=== PATIENT | male | born 1965 | race Caucasian/White ===

== ENCOUNTER 2024-01-09 14:24 | Emergency (ER) | payer BC, MEDICARE, SELFPAY ==
[2024-01-09 14:36] VITALS: BP 140/76
[2024-01-09 14:54] LABS: % Basophils 1.1 % (0-2); % Eosinophils 5.6 % (0-6); % Immature Granulocytes 0.2 % (0-0.5); % Lymphocytes 24.1 % (20.5-51.1); % Monocytes 9.4 % (1.7-9.3); % Neutrophils 59.6 % (42.2-75.2); Absolute Basophils 0.1 10^3/uL (0-0.2); Absolute Eosinophils 0.5 10^3/uL (0-0.7); Absolute Lymphocytes 2.1 10^3/uL (1.2-3.4); Absolute Monocytes 0.8 10^3/uL (0.1-0.6); Absolute Neutrophils 5.3 10^3/uL (1.4-6.5); Hematocrit 46.7 % (39.0-52.0); Hemoglobin 15.8 g/dL (13.0-18.0); Mean Corp Hgb Conc. 33.8 g/dL (33.0-37.0); Mean Corpuscular Hgb 29.7 pg (27.0-31.0); Mean Corpuscular Volume 87.8 fL (80.0-94.0); Mean Platelet Volume 11.8 fL (7.4-10.4); Nucleated Red Blood Cells % 0 % (-); Platelet Count 251 10^3/uL (130-400); Red Blood Cell Count 5.32 10^6/uL (4.70-6.10); Red Cell Dist. Width 12.8 % (11.5-14.5); White Blood Cell Count 8.9 10^3/uL (4.8-10.8)
[2024-01-09 15:13] LABS: ALT (SGPT) 26 U/L (0-50); AST (SGOT) 22 U/L (17-59); Albumin 4.4 g/dl (3.5-5.0); Alkaline Phosphatase 96 U/L (38-126); Blood Urea Nitrogen 24 mg/dl (9-20); Calcium 9.3 mg/dl (8.4-10.2); Carbon Dioxide 24 mmol/L (22-30); Chloride 106 mmol/L (98-107); Glucose 94 mg/dl (70-99); Potassium 4.2 mmol/L (3.5-5.1); Sodium 134 mmol/L (135-145); Total Bilirubin 0.5 mg/dl (0.2-1.3); Total Protein 6.4 g/dl (6.3-8.2); eGFR > 60.00
[2024-01-09 15:18] LABS: Troponin I < 0.012 ng/ml
--- NOTE | 2024-01-09 17:07 | ED.GENMED ---
History of Present Illness
<Samantha Davis, CONE MACHINE OPERATOR - Last Filed: 01/10/24 13:22>
General
Chief Complaint: Chest Pain
Source: patient
Exam Limitations: none
Time Seen by Provider: 01/09/24 17:07
Nursing documentation reviewed up to this point in time: agreed with except (no chest pain, rather epigastric pain)
Travel History
Have you had any contact with someone who has COVID-19?: No
Do you have any symptoms of coronavirus? Fever > 100 degrees, chills, cough, shortness of breath, sore throat, loss of taste or smell, muscle aches, or headache?: No
History of Present Illness
History of Present Illness:
58-year-old male with history of MS, COPD, smoker, cardiomyopathy, CAD, HTN, HLD, [place], GERD, colon CA w. sigmoid colon area resection 10/22/23 presents stating for past 4 days has had waxing and waning epigastric pains that 'shoot through to my
back.'Gradual onset, 'throbbing, burning' 4/10 then goes up to 9/10 intermittently for 15 seconds or so. Pain kept him up all night last night. Nausea at times no vomiting. Reports had some perfume Denies fever. Denies change in color of stool. Has
been having normal BMs, urinating well.
Past History
<Samantha Davis, CONE MACHINE OPERATOR - Last Filed: 01/10/24 13:22>
Past History
ED Past Medical History: Asthma (COPD), CAD, GERD, HTN, [place], Other (Cardiomyopathy with preserved LVF, osteopenia, diverticulosis, Bronchiolitis, MS, Pneumonia) and Other (questionable distant history of Lyme disease)
ED Past Surgical History: Appendectomy and Bowel resection
Social History
Tobacco: Smoker
Alcohol: Occasional
Personal:
Living: with family
Employment: Employed
Family History
Family History: Early CAD
Review of Systems
<Samantha V. Day, CONE MACHINE OPERATOR - Last Filed: 01/10/24 13:22>
Review of Systems
Allergies reviewed?: Yes
All Other Systems: ROS reviewed and negative except as documented in HPI and ROS
Constitutional: Denies fever or chills
Respiratory: Denies trouble breathing
Cardiac: Denies chest pain
ABD/GI: Reports abdominal pain (epigastric area); Denies nausea, vomiting, diarrhea, constipated, bloody stools, black stools or anorexia
: Denies dysuria, frequency, difficulty voiding or urgency
Musculoskeletal: Reports no symptoms
Skin: Reports no symptoms
Neurological: Reports no symptoms
Phy Exam
<Samantha Davis, CONE MACHINE OPERATOR - Last Filed: 01/10/24 13:22>
Physical Exam
Physical Exam:
GENERAL: No acute distress. A&Ox3.
CONSTITUTIONAL: Afebrile.
EYES: clear, conjunctivae normal
ENMT: moist mucus membranes, Pharynx nl
RESPIRATORY: Regular respirations, nonlabored, lungs clear.
CARDIOVASCULAR: Regular rate and rhythm, no murmurs, no rubs.
GI: Soft, normal BS, no tenderness to palpation but pt had three 15 second episodes of significant epigastric burning, spasm type pain with wincing and holding the area, legs pulled up.
MUSCULOSKELETAL: Moves with ease. Well perfused. No edema
SKIN: Warm, dry, pink
PSYCH: Normal mood and affect. Well kept, interactive and appropriate
NEUROLOGIC: Awake, alert and oriented. No focal neurological deficits
Scores
<Samantha Davis, CONE MACHINE OPERATOR - Last Filed: 01/10/24 13:22>
Heart Score for Chest Pain Patients
STEMI patient?: Not applicable
Course
<Samantha Davis, CONE MACHINE OPERATOR - Last Filed: 01/10/24 13:22>
Orders/Labs/Results
Orders:
Orders
01/09/24 14:29
EKG [Electrocardiogram (*1)] Urgent
Reason for Study: Chest Pain
01/09/24 14:30
EKG- Treatment ONCE
01/09/24 14:45
CMP [Comprehensive Metabolic Panel] Urgent
Complete Blood Count/With Diff Urgent
Lipase Urgent
Comment: ADD ON
Troponin I Urgent
01/09/24 17:20
CT Abd/pelvis W Iv Cont Urgent
Comment:
Reason For Exam: upper abdominal pain shooting through to the back
01/09/24 17:22
0.9% Sodium Chloride 1000 ml [Nss] 1,000 ml IV BOLUS
01/09/24 18:27
Dicyclomine [Bentyl] 20 mg PO NOW STA
01/09/24 18:53
Add On- LAB Urgent
Tests Added?: Lipase
01/09/24 19:39
Morphine Sulfate 4 mg IV NOW STA
01/09/24 20:24
Morphine Sulfate 4 mg IV NOW STA
Pantoprazole [Protonix IV] 80 mg IV NOW STA
Sucralfate Suspension [Carafate Suspension] 1 gm PO NOW STA
Abnormal Lab Results
01/09/24
14:45
MPV 11.8 H fL
(7.4-10.4)
Absolute Monos (auto) 0.8 H 10^3/uL
(0.1-0.6)
Monocytes % 9.4 H %
(1.7-9.3)
Sodium 134 L mmol/L
(135-145)
BUN 24 H mg/dl
(9-20)
Creatinine 0.6 L mg/dL
(0.7-1.3)
01/09/24 14:45
01/09/24 14:45
Vital Signs
Initial and Last Documented VS:
Initial Vital Signs
Temp Pulse Resp BP Pulse Ox
97.7 F 64 18 140/76 97
01/09/24 14:36 01/09/24 14:36 01/09/24 14:36 01/09/24 14:36 01/09/24 14:36
Last Documented Vital Signs
Temp Pulse Resp BP Pulse Ox
97.9 F 64 11 125/71 98
01/09/24 21:36 01/09/24 20:45 01/09/24 20:45 01/09/24 20:00 01/09/24 20:45
<Morgan Dewey, DO - Last Filed: 01/09/24 20:28>
Orders/Labs/Results
Orders:
Orders
01/09/24 14:29
EKG [Electrocardiogram (*1)] Urgent
Reason for Study: Chest Pain
01/09/24 14:30
EKG- Treatment ONCE
01/09/24 14:45
CMP [Comprehensive Metabolic Panel] Urgent
Complete Blood Count/With Diff Urgent
Lipase Urgent
Comment: ADD ON
Troponin I Urgent
01/09/24 17:20
CT Abd/pelvis W Iv Cont Urgent
Comment:
Reason For Exam: upper abdominal pain shooting through to the back
01/09/24 17:22
0.9% Sodium Chloride 1000 ml [Nss] 1,000 ml IV BOLUS
01/09/24 18:27
Dicyclomine [Bentyl] 20 mg PO NOW STA
01/09/24 18:53
Add On- LAB Urgent
Tests Added?: Lipase
01/09/24 19:39
Morphine Sulfate 4 mg IV NOW STA
01/09/24 20:24
Morphine Sulfate 4 mg IV NOW STA
Pantoprazole [Protonix IV] 80 mg IV NOW STA
Sucralfate Suspension [Carafate Suspension] 1 gm PO NOW STA
Abnormal Lab Results
01/09/24
14:45
MPV 11.8 H fL
(7.4-10.4)
Absolute Monos (auto) 0.8 H 10^3/uL
(0.1-0.6)
Monocytes % 9.4 H %
(1.7-9.3)
Sodium 134 L mmol/L
(135-145)
BUN 24 H mg/dl
(9-20)
Creatinine 0.6 L mg/dL
(0.7-1.3)
01/09/24 14:45
01/09/24 14:45
Vital Signs
Initial and Last Documented VS:
Initial Vital Signs
Temp Pulse Resp BP Pulse Ox
97.7 F 64 18 140/76 97
01/09/24 14:36 01/09/24 14:36 01/09/24 14:36 01/09/24 14:36 01/09/24 14:36
Last Documented Vital Signs
Temp Pulse Resp BP Pulse Ox
97.9 F 64 11 125/71 98
01/09/24 21:36 01/09/24 20:45 01/09/24 20:45 01/09/24 20:00 01/09/24 20:45
<Samantha Davis, CONE MACHINE OPERATOR - Last Filed: 01/10/24 13:22>
MDM/Problems Addressed
Differential Diagnosis Includes:
PUD, biliary colic, AAA, gastritis
MDM/Problems Addressed:
58-year-old male with history of MS, COPD, smoker, cardiomyopathy, CAD, HTN, HLD, [place], GERD, colon CA w. sigmoid colon area resection 10/22/23 presents stating for past 4 days has had waxing and waning epigastric pains that 'shoot through to my
back.'Gradual onset, 'throbbing, burning' 4/10 then goes up to 9/10 intermittently for 15 seconds or so. Pain kept him up all night last night. Nausea at times no vomiting. Reports had some perfume Denies fever. Denies change in color of stool. Has
been having normal BMs, urinating well.
Afebrile, NAD, denies chest pain, frequent epigastric spasming, burning episode lasting about 15 seconds
EKG: NSR left axis deviation right bundle branch block, no change
Do not suspect bowel obstruction as pain is episodic, immediately over the epigastric area, abdomen is nontender to palpation, no lower abdominal pain, no distention, normal BS, has been moving his bowels well.
5:43 PM
CBC normal
CMP with no clinically significant abnormality
Troponin normal
6:28 PM
Patient continues with intermittent spasm pain in epigastric area, Bentyl ordered
CT scan pending
6:54 PM
Patient is in CAT scan.
Case discussed with Dr. Foley who will assume care from this point.
<Samantha Davis NP - Last Filed: 01/10/24 13:22>
*EKG
EKG Intrepretation Date: 01/09/24
Interpretation: abnormal
Comparison EKG: no changes
Rate: normal
Rhythm: sinus
[place]: left axis deviation
QRS Pattern: normal QRS and right bundle branch block
Ischemia: no ischemia
*Critical Care Note
Total Time (30-74mins, 75-104mins- exclusive of procedures): Not Applicable
ED Attending Note
<Samantha Davis CONE MACHINE OPERATOR - Last Filed: 01/10/24 13:22>
-
Portions of this chart may have been created with voice recognition software.� Occasional wrong word or��sound alike� substitutions may have occurred due to the inherent limitations of voice recognition software.
<Morgan Dewey DO - Last Filed: 01/09/24 20:28>
ED Attending Note
Patient seen and examined by attending physician: Yes
I performed the substantive portion of visit, reviewed & personally made and approve the management plan that is documented in note by myself or HOWARD.: Yes
ED Attending Note:
58-year-old male with history of MS and colectomy due to colon cancer who presents with epigastric abdominal pains been ongoing for 3 to 4 days. Patient denies vomiting. No fevers. No chest pain. Exam: Mild epigastric tenderness. No distention.
Previous incision sites are intact. Assessment and plan: White count normal, lipase normal, LFTs normal, CT unremarkable. Question whether this could be peptic ulcer disease, duodenal ulcer disease, gastritis, esophagitis. At this time he
appears well does feel better after a little bit of morphine. Will treat with Carafate and Protonix and advise close outpatient PCP and GI follow-up. May need endoscopy. However, I did advise that if pain returns or persists he should come back
for further evaluation.
Discharge Plan
Departure
Patient Disposition: Home (Routine Discharge)
Date of Disposition: 01/09/24
Time of Disposition: 20:25
Patient with high blood pressure during this ER visit?: No
Discharge Problem:
Epigastric abdominal pain
Instructions: Abdominal Pain
Prescriptions:
New
sucralfate [Carafate] 100 mg/mL suspension
10 ml PO QID Qty: 400 0RF
pantoprazole [Protonix] 40 mg tablet,delayed release (DR/EC)
40 mg PO DAILY Qty: 30 0RF
Rx Instructions:
Please take 30 minutes prior to eating or drinking anything in the morning.
No Action
baclofen 20 mg tablet
20 mg PO TID
oxcarbazepine 600 mg tablet
600 mg PO TID
Ocrevus 30 mg/mL Solution
600 mg IV [id number]
Patient Comments:
Due in December 2023
Brilinta 90 mg Tablet
90 mg PO BID Qty: 180 5RF
Patient Comments:
pt stopping 09/24 per instructions
atorvastatin 80 mg Tablet
80 mg PO QPM Qty: 90 5RF
aspirin 81 mg Tablet,Chewable
81 mg PO DAILY Qty: 1 0RF
pregabalin 50 mg Capsule
50 mg PO TID Qty: 240 5RF
metoprolol succinate 25 mg Tablet Extended Release 24 Hr
25 mg PO DAILY Qty: 90 5RF
oxycodone-acetaminophen 5-325 mg tablet
1 tab PO Q8H PRN (Reason: Pain) Qty: 20 0RF
Referrals:
Joaquin Duong, DO [Family Provider] -
Activity Restrictions/Additional Instructions:
Please drink plenty fluids and stick to a clear liquid diet for the next 24 to 48 hours. Return immediately for intractable vomiting, intractable pain, fevers or any other concerns. Please see your doctor for follow-up and reevaluation. If pain
persist, an endoscopy may be necessary.
Interventions
Interventions:
*Risk Screen - Suicide Last Done: 01/09/24 21:36
*General Assessment Last Done: 01/09/24 21:36
*Neglect/Abuse Screening Last Done: 01/09/24 21:36
*ED COVID-19 Vaccine History Last Done: 01/09/24 21:36
*Nursing Disposition Last Done: 01/09/24 21:36
ED- Cardiac Assessment Last Done: 01/09/24 17:00
Discharge Date and Time
Discharge Date/Time: 01/09/24 21:39
Print Language: ALBANIAN
[2024-01-09] MEDS: NSS 1000 IV (17:35)
[2024-01-09] MEDS: BENTYL 20 MG PO (18:35)
[2024-01-09 19:24] VITALS: BP 123/78
[2024-01-09 19:24] LABS: Lipase 70 U/L (23-300)
[2024-01-09 19:47] VITALS: BMI 26.1
[2024-01-09] MEDS: MORPHINE SULFATE 4 MG IV ×2 (19:47→20:46)
[2024-01-09 20:00] VITALS: BP 125/71
[2024-01-09] MEDS: PROTONIX IV 80 MG IV (20:46)
[2024-01-09] MEDS: CARAFATE SUSPENSION 1 GM PO (20:46)
== END 2024-01-09 21:39 | disposition home or self-care (01) ==
LOC: EMR 14:24
PROVIDERS: Emergency Medicine; EMERGENCY PHYSICIAN Emergency Medicine; FAMILY PHYSICIAN Family Medicine
DX: R10.13 Epigastric pain (principal); R11.0 Nausea; R25.2 Cramp and spasm; F17.200 Nicotine dependence, unspecified, uncomplicated; J44.89 Other specified chronic obstructive pulmonary disease; I25.10 Atherosclerotic heart disease of native coronary artery without angina pectoris; I10 Essential (primary) hypertension; I25.2 Old myocardial infarction; E78.5 Hyperlipidemia, unspecified; I42.9 Cardiomyopathy, unspecified; K21.9 Gastro-esophageal reflux disease without esophagitis; Z85.038 Personal history of other malignant neoplasm of large intestine
CPT/HCPCS: 99285; 96374; 96375 ×2; 96376; 74177; 80053; 83690; 84484; 85025; 93005; Q9967

== ENCOUNTER 2024-01-12 07:33 | Outpatient (RCR) | payer BC, MEDICARE, SELFPAY ==
[2024-01-12] VITALS (9 sets, daily range): BP systolic 102–132; BP diastolic 59–73
[2024-01-12 08:10] LABS: % Basophils 1.1 % (0-2); % Immature Granulocytes 0.3 % (0-0.5); % Lymphocytes 23.8 % (20.5-51.1); % Monocytes 10.8 % (1.7-9.3); Absolute Basophils 0.1 10^3/uL (0-0.2); Absolute Eosinophils 0.5 10^3/uL (0-0.7); Absolute Lymphocytes 2.2 10^3/uL (1.2-3.4); Absolute Neutrophils 5.5 10^3/uL (1.4-6.5); Hematocrit 42.9 % (39.0-52.0); Hemoglobin 15.3 g/dL (13.0-18.0); Mean Corp Hgb Conc. 35.7 g/dL (33.0-37.0); Mean Corpuscular Hgb 30.2 pg (27.0-31.0); Mean Corpuscular Volume 84.6 fL (80.0-94.0); Mean Platelet Volume 11.4 fL (7.4-10.4); Nucleated Red Blood Cells % 0 % (-); Platelet Count 257 10^3/uL (130-400); Red Blood Cell Count 5.07 10^6/uL (4.70-6.10); Red Cell Dist. Width 12.8 % (11.5-14.5); White Blood Cell Count 9.3 10^3/uL (4.8-10.8)
[2024-01-12] MEDS: TYLENOL 650 MG PO (08:39)
[2024-01-12] MEDS: NSS 500 IV (08:39)
[2024-01-12] MEDS: SOLU-MEDROL PF 51.6000000000000014 MG IV (08:40)
[2024-01-12] MEDS: BENADRYL 51 MG IV (09:05)
[2024-01-12] MEDS: OCREVUS 520 MG IV (09:32)
== END 2024-01-13 07:46 | disposition home or self-care (01) ==
LOC: OID 07:33
PROVIDERS: ATTENDING PHYSICIAN Psychiatry & Neurology Neurology; FAMILY PHYSICIAN Family Medicine
DX: G35 Multiple sclerosis (principal)
CPT/HCPCS: 85025; 96360; 96361; 96365; 96366; 96367; 96368; J2350

== ENCOUNTER 2024-01-18 12:06 | Emergency (ER) | payer BC, MEDICARE, SELFPAY ==
[2024-01-18 12:07] VITALS: BP 120/80; BMI 27.3
[2024-01-18 12:25] VITALS: BMI 27.5
[2024-01-18 12:37] VITALS: BP 117/72
[2024-01-18 12:46] LABS: % Eosinophils 5.1 % (0-6); % Immature Granulocytes 0.5 % (0-0.5); % Lymphocytes 24.2 % (20.5-51.1); % Monocytes 9.6 % (1.7-9.3); % Neutrophils 59.6 % (42.2-75.2); Absolute Basophils 0.1 10^3/uL (0-0.2); Absolute Eosinophils 0.4 10^3/uL (0-0.7); Absolute Lymphocytes 1.9 10^3/uL (1.2-3.4); Absolute Monocytes 0.8 10^3/uL (0.1-0.6); Absolute Neutrophils 4.6 10^3/uL (1.4-6.5); Hematocrit 44.2 % (39.0-52.0); Hemoglobin 15.8 g/dL (13.0-18.0); Mean Corp Hgb Conc. 35.7 g/dL (33.0-37.0); Mean Corpuscular Hgb 30.3 pg (27.0-31.0); Mean Corpuscular Volume 84.7 fL (80.0-94.0); Mean Platelet Volume 11.6 fL (7.4-10.4); Nucleated Red Blood Cells % 0 % (-); Platelet Count 275 10^3/uL (130-400); Red Blood Cell Count 5.22 10^6/uL (4.70-6.10); Red Cell Dist. Width 12.8 % (11.5-14.5); White Blood Cell Count 7.8 10^3/uL (4.8-10.8)
[2024-01-18 13:05] LABS: ALT (SGPT) 20 U/L (0-50); AST (SGOT) 19 U/L (17-59); Albumin 4.4 g/dl (3.5-5.0); Alkaline Phosphatase 108 U/L (38-126); Blood Urea Nitrogen 16 mg/dl (9-20); Calcium 9.2 mg/dl (8.4-10.2); Carbon Dioxide 26 mmol/L (22-30); Chloride 105 mmol/L (98-107); Estimated Creatinine Clearance > 125 ml/min; Glucose 99 mg/dl (70-99); Lipase 118 U/L (23-300); Potassium 4.2 mmol/L (3.5-5.1); Sodium 136 mmol/L (135-145); Total Bilirubin 0.5 mg/dl (0.2-1.3); Total Protein 6.4 g/dl (6.3-8.2); eGFR > 60.00
[2024-01-18] MEDS: ZOFRAN 4 MG IV (13:25)
[2024-01-18] MEDS: PROTONIX IV 40 MG IV (13:25)
--- NOTE | 2024-01-18 13:53 | ED.GENMED ---
History of Present Illness
General
Chief Complaint: Abdominal Pain
Source: patient, records and family
Exam Limitations: none
Time Seen by Provider: 01/18/24 12:16
Nursing documentation reviewed up to this point in time: agreed with
Travel History
Have you had any contact with someone who has COVID-19?: No
Do you have any symptoms of coronavirus? Fever > 100 degrees, chills, cough, shortness of breath, sore throat, loss of taste or smell, muscle aches, or headache?: No
History of Present Illness
History of Present Illness:
58-year-old male history of MS, colon cancer status postresection, appendectomy 1 year of abdominal pain worsening over the past few weeks mid upper abdomen worse with food, seen in the ER recently had a CAT scan discharged with an acids felt better
for few days then returned worse at nighttime, no fever no dark or bloody stools, he did have some lower abdominal cramping and blood in his stool necessitating colonoscopy was found to have a colon mass which was removed earlier this year by
[facility], patient states the symptoms that he came in this evening predated his colon cancer symptoms also has a history of [place], states the symptoms are different than his VT has had upper endoscopy by Dr. Caldwell previously no alcohol no tobacco, no
weight loss, he has been using MiraLAX, has a bowel movement 1 or 2 times a day
Past History
Past History
ED Past Medical History: Asthma (COPD), CAD, GERD, HTN, [place], Other (Cardiomyopathy with preserved LVF, osteopenia, diverticulosis, Bronchiolitis, MS, Pneumonia) and Other (questionable distant history of Lyme disease)
ED Past Surgical History: Appendectomy and Bowel resection
Social History
Tobacco: Smoker
Alcohol: Occasional
Personal:
Living: with family
Employment: Employed
Family History
Family History: Early CAD
Review of Systems
Review of Systems
All Other Systems: Not applicable
Constitutional: Denies fever or fatigue
Respiratory: Reports no symptoms
Cardiac: Reports no symptoms
ABD/GI: Reports abdominal pain; Denies nausea, diarrhea, constipated or black stools
Phy Exam
Physical Exam
Physical Exam:
Physical Exam
General: no apparent distress, not acutely ill
Neck: No jaundice
Heart: s1/s2 regular rate and rhythm, no murmur. equal radial pulses.
Lungs: no acute respiratory distress. clear bilaterally
Abdomen: Soft mild epigastric tenderness no lower abdominal
Neuro: alert and oriented. no focal neurological deficits
Skin: no rash
Psychiatric: well kept. interactive and cooperative
Extremities: no edema.
Course
Orders/Labs/Results
Orders:
Orders
01/18/24 12:35
Troponin I Urgent
01/18/24 12:36
CMP [Comprehensive Metabolic Panel] Urgent
Complete Blood Count/With Diff Urgent
Lipase Urgent
01/18/24 12:51
Electrocardiogram (*1) Urgent
Reason for Study: Abdominal Pain
EKG- Treatment ONCE
Ondansetron Injectable [Zofran] 4 mg IV NOW STA
Pantoprazole [Protonix IV] 40 mg IV NOW STA
US Abdomen Complete/Upper Urgent
Comment:
Reason For Exam: pain stones
01/18/24 14:50
Mag Hydrox/Al Hydrox/Simeth [Maalox] 30 ml Phenobarb/Hyoscy/Atropine/Scop [] 10 ml Viscous Lidocaine 2% [Xylocaine Viscous Cup] 10 ml PO NOW
01/18/24 14:58
Mag Hydrox/Al Hydrox/Simeth [Maalox] 30 ml .ROUTE .STK-MED ONE
Phenobarb/Hyoscy/Atropine/Scop [] 10 ml .ROUTE .STK-MED ONE
01/18/24 14:59
Viscous Lidocaine 2% [Xylocaine Viscous Cup] 15 ml .ROUTE .STK-MED ONE
Abnormal Lab Results
01/18/24
12:36
MPV 11.6 H fL
(7.4-10.4)
Absolute Monos (auto) 0.8 H 10^3/uL
(0.1-0.6)
Monocytes % 9.6 H %
(1.7-9.3)
Creatinine 0.6 L mg/dL
(0.7-1.3)
01/18/24 12:36
01/18/24 12:36
Vital Signs
Initial and Last Documented VS:
Initial Vital Signs
Temp Pulse Resp BP Pulse Ox
97.6 F 61 16 120/80 97
01/18/24 12:07 01/18/24 12:07 01/18/24 12:07 01/18/24 12:07 01/18/24 12:07
Last Documented Vital Signs
Temp Pulse Resp BP Pulse Ox
97.6 F 53 14 116/76 94
01/18/24 12:07 01/18/24 16:00 01/18/24 15:45 01/18/24 16:00 01/18/24 16:00
*Critical Care Note
Total Time (30-74mins, 75-104mins- exclusive of procedures): Not Applicable
Update Note
Update Note:
2:50 PM labs noted ultrasound report noted
Patient still with burning in his mid upper abdomen, will try GI cocktail
4 PM patient feeling better
ED Attending Note
-
Portions of this chart may have been created with voice recognition software.� Occasional wrong word or��sound alike� substitutions may have occurred due to the inherent limitations of voice recognition software.
Discharge Plan
Departure
Patient Disposition: Home (Routine Discharge)
Date of Disposition: 01/18/24
Time of Disposition: 16:02
Patient with high blood pressure during this ER visit?: No
Condition: Good
Discharge Problem:
GERD (gastroesophageal reflux disease), Abdominal pain
Instructions: Acid Reflux and GERD in Adults (DC), [place] Diet, Abdominal Pain
Prescriptions:
New
alum-mag hydroxide-simeth [Maalox Advanced] 200-200-20 mg/5 mL suspension
10 ml PO Q6H PRN (Reason: dyspepsia) Qty: 3000 0RF
pantoprazole [Protonix] 40 mg tablet,delayed release (DR/EC)
80 mg PO DAILY Qty: 60 0RF
sucralfate [Carafate] 1 gram tablet
1 g PO BID Qty: 60 0RF
No Action
baclofen 20 mg tablet
20 mg PO TID
oxcarbazepine 600 mg tablet
600 mg PO TID
Ocrevus 30 mg/mL Solution
600 mg IV [id number]
Patient Comments:
Due in December 2023
atorvastatin 80 mg Tablet
80 mg PO QPM Qty: 90 5RF
aspirin 81 mg Tablet,Chewable
81 mg PO DAILY Qty: 1 0RF
pregabalin 50 mg Capsule
50 mg PO TID Qty: 240 5RF
metoprolol succinate 25 mg Tablet Extended Release 24 Hr
25 mg PO DAILY Qty: 90 5RF
pantoprazole [Protonix] 40 mg tablet,delayed release (DR/EC)
40 mg PO DAILY Qty: 30 0RF
Rx Instructions:
Please take 30 minutes prior to eating or drinking anything in the morning.
Referrals:
Joaquin Duong DO [Family Provider] -
Theodore Jim MD [Active] - Next open appointment
Interventions
Interventions:
*Risk Screen - Suicide Last Done: 01/18/24 12:07
*General Assessment Last Done: 01/18/24 12:25
*Neglect/Abuse Screening Last Done: 01/18/24 12:07
ED- Fall Risk Assessment Last Done: 01/18/24 12:07
*ED COVID-19 Vaccine History Last Done: 01/18/24 12:07
*Nursing Disposition Last Done: 01/18/24 16:30
XA-Uikyub-[id number] Assessment Last Done: 01/18/24 12:25
Discharge Date and Time
Discharge Date/Time: 01/18/24 16:30
Print Language: AFGHAN
[2024-01-18 14:09] LABS: Troponin I < 0.012 ng/ml
[2024-01-18 14:53] VITALS: BP 119/74
[2024-01-18 15:00] VITALS: BP 114/65
[2024-01-18] MEDS: MAALOX 50 PO (15:10)
[2024-01-18 16:00] VITALS: BP 116/76
== END 2024-01-18 16:30 | disposition home or self-care (01) ==
LOC: EMR 12:06
PROVIDERS: EMERGENCY PHYSICIAN Emergency Medicine; FAMILY PHYSICIAN Family Medicine
DX: K21.9 Gastro-esophageal reflux disease without esophagitis (principal); F17.200 Nicotine dependence, unspecified, uncomplicated; R10.9 Unspecified abdominal pain
CPT/HCPCS: 99285; 96374; 96375; 76700; 80053; 83690; 84484; 85025; 93005

== ENCOUNTER 2024-01-21 21:34 | Inpatient (IN) | payer BC, MEDICARE, SELFPAY ==
[2024-01-21 15:55] VITALS: BP 124/88
[2024-01-21 16:40] VITALS: BMI 27.3
--- NOTE | 2024-01-21 16:42 | ED.GENMED ---
History of Present Illness
<ERIC Pat - Last Filed: 01/21/24 19:04>
General
Chief Complaint: Abdominal Pain
Source: patient
Exam Limitations: none
Time Seen by Provider: 01/21/24 16:14
Travel History
Have you had any contact with someone who has COVID-19?: No
Do you have any symptoms of coronavirus? Fever > 100 degrees, chills, cough, shortness of breath, sore throat, loss of taste or smell, muscle aches, or headache?: No
History of Present Illness
History of Present Illness:
Patient is a 58 y/o male with PMH of colon cancer s/p bowel resection in September 2023 who presents to the ED complaining of lower abdominal pain and rectal bleeding. He describes the pain as 'crampy'. Patient says he has had multiple episodes of
diarrhea since Friday, stating that he sometimes does not make it to a toilet due to urgency. He notes some blood in the stool and on toilet paper. He says that sips of water and small bites of food aggravate his symptoms. He denies fever, melena,
nausea, vomiting, known sick contacts, recent antibiotic use, and decreased appetite. Patient has presented to the ED with similar complaints twice over the past 2 weeks. He was treated with pantoprazole and sucralfate with some relief. CT on Friday
was negative for acute findings.
Past History
<ERIC Pat - Last Filed: 01/21/24 19:04>
Past History
ED Past Medical History: Asthma (COPD), CAD, GERD, HTN, MA, Other (Cardiomyopathy with preserved LVF, osteopenia, diverticulosis, Bronchiolitis, MS, Pneumonia) and Other (questionable distant history of Lyme disease)
ED Past Surgical History: Appendectomy and Bowel resection
Social History
Tobacco: Smoker
Alcohol: Occasional
Personal:
Living: with family
Employment: Employed
Family History
Family History: Early CAD
Review of Systems
<ERIC Pat - Last Filed: 01/21/24 19:04>
Review of Systems
Constitutional: Reports no symptoms
ABD/GI: Reports abdominal pain, diarrhea and bloody stools
Phy Exam
<ERIC Pat - Last Filed: 01/21/24 19:04>
General Physical Exam
General Presentation: moderate distress
General age: appears stated age
General Skin: warm
General Habitus: normal
General Mental: alert
Cardiovascular Exam
Cardiovascular Exam: regular rate/rhythm
Pulmonary Exam
Pulmonary Exam: lungs clear
Gastrointestinal Exam
Gastrointestinal Exam: normal bowel sounds, soft and surgical scar
Course
<ERIC Pat - Last Filed: 01/21/24 19:04>
Orders/Labs/Results
Orders:
Orders
01/21/24 16:42
Complete Blood Count/With Diff Urgent
Comprehensive Metabolic Panel Urgent
Lipase Urgent
01/21/24 16:44
Obstruct Series W/PA Chest [CR Obstruct Series W/pa Chest] Urgent
Comment:
Reason For Exam: abdominal pain, diarrhea
01/21/24 16:45
Dicyclomine [Bentyl] 20 mg PO NOW STA
01/21/24 17:32
CT Abd/pel W Iv And Oral Contr Urgent
Comment:
Reason For Exam: diffuse abd pain, diarrhea
Iohexol [Omnipaque] See Protocol PO NOW STA
01/21/24 19:31
STOOL [C difficile Antigen & Toxins] Urgent
RENATA Source: Feces/Stool
Specimen Description:
Date Specimen was Collected: 01/21/24
Time Specimen was Collected: 19:28
Stool Culture Urgent
RENATA Source: Feces/Stool
Specimen Description:
Date Specimen was Collected: 01/21/24
Time Specimen was Collected: 19:28
Abnormal Lab Results
01/21/24
16:42
WBC 15.0 H 10^3/uL
(4.8-10.8)
MPV 11.9 H fL
(7.4-10.4)
Abs Immat Gran (auto) 0.1 H 10^3/uL
(0-0.05)
Absolute Neuts (auto) 11.8 H 10^3/uL
(1.4-6.5)
Absolute Monos (auto) 1.4 H 10^3/uL
(0.1-0.6)
Neutrophils % 78.8 H %
(42.2-75.2)
Lymphocytes % 9.3 L %
(20.5-51.1)
Monocytes % 9.5 H %
(1.7-9.3)
Creatinine 0.6 L mg/dL
(0.7-1.3)
01/21/24 16:42
01/21/24 16:42
Vital Signs
Initial and Last Documented VS:
Initial Vital Signs
Temp Pulse Resp BP Pulse Ox
98.2 F 102 20 124/88 95
01/21/24 15:55 01/21/24 15:55 01/21/24 15:55 01/21/24 15:55 01/21/24 15:55
Last Documented Vital Signs
Temp Pulse Resp BP Pulse Ox
98.2 F 102 20 124/88 95
01/21/24 15:55 01/21/24 15:55 01/21/24 15:55 01/21/24 15:55 01/21/24 15:55
Rerelt;Jaylen Haro, DO - Last Filed: 01/21/24 20:23>
Orders/Labs/Results
Orders:
Orders
01/21/24 16:42
Complete Blood Count/With Diff Urgent
Comprehensive Metabolic Panel Urgent
Lipase Urgent
01/21/24 16:44
Obstruct Series W/PA Chest [CR Obstruct Series W/pa Chest] Urgent
Comment:
Reason For Exam: abdominal pain, diarrhea
01/21/24 16:45
Dicyclomine [Bentyl] 20 mg PO NOW STA
01/21/24 17:32
CT Abd/pel W Iv And Oral Contr Urgent
Comment:
Reason For Exam: diffuse abd pain, diarrhea
Iohexol [Omnipaque] See Protocol PO NOW STA
01/21/24 19:31
STOOL [C difficile Antigen & Toxins] Urgent
RENATA Source: Feces/Stool
Specimen Description:
Date Specimen was Collected: 01/21/24
Time Specimen was Collected: 19:28
Stool Culture Urgent
RENATA Source: Feces/Stool
Specimen Description:
Date Specimen was Collected: 01/21/24
Time Specimen was Collected: 19:28
Abnormal Lab Results
01/21/24
16:42
WBC 15.0 H 10^3/uL
(4.8-10.8)
MPV 11.9 H fL
(7.4-10.4)
Abs Immat Gran (auto) 0.1 H 10^3/uL
(0-0.05)
Absolute Neuts (auto) 11.8 H 10^3/uL
(1.4-6.5)
Absolute Monos (auto) 1.4 H 10^3/uL
(0.1-0.6)
Neutrophils % 78.8 H %
(42.2-75.2)
Lymphocytes % 9.3 L %
(20.5-51.1)
Monocytes % 9.5 H %
(1.7-9.3)
Creatinine 0.6 L mg/dL
(0.7-1.3)
01/21/24 16:42
01/21/24 16:42
Vital Signs
Initial and Last Documented VS:
Initial Vital Signs
Temp Pulse Resp BP Pulse Ox
98.2 F 102 20 124/88 95
01/21/24 15:55 01/21/24 15:55 01/21/24 15:55 01/21/24 15:55 01/21/24 15:55
Last Documented Vital Signs
Temp Pulse Resp BP Pulse Ox
98.2 F 102 20 124/88 95
01/21/24 15:55 01/21/24 15:55 01/21/24 15:55 01/21/24 15:55 01/21/24 15:55
<Jaylen Haro, DO - Last Filed: 01/21/24 20:23>
MDM/Problems Addressed
Differential Diagnosis Includes:
Diverticulitis, colitis
MDM/Problems Addressed:
58-year-old male with proctocolitis. History of MS. Admit to hospitalist.
Chronic conditions affecting care: CAD and Other (Multiple sclerosis)
<Jaylen Haro, DO - Last Filed: 01/21/24 20:23>
*Radiology
Radiology exam reviewed: radiology read reviewed (CT abdomen pelvis shows proctocolitis)
*Pulse Oximetry
Patient hypoxic: no
*EKG
Interpreted by ED Provider?: NA
*Supervisor Feed [facility] Interpretation
Rate: Supervisor [facility]- N/A
*Critical Care Note
Total Time (30-74mins, 75-104mins- exclusive of procedures): Not Applicable
Data Reviewed
Review of Other/Old Records Reveals: Radiology Studies (No acute findings on recent CT abdomen pelvis 01/09/2024)
<Jaylen Haro, DO - Last Filed: 01/21/24 20:23>
Patient Management
Social determinants of health affecting care: Living situation
Discussion with other providers: Hospitalist
Escalation/DeEscalation of care consider admission/obs:
Admit indicated
ED Attending Note
<ERIC Pat - Last Filed: 01/21/24 19:04>
-
Portions of this chart may have been created with voice recognition software.� Occasional wrong word or��sound alike� substitutions may have occurred due to the inherent limitations of voice recognition software.
<Jaylen Haro DO - Last Filed: 01/21/24 20:23>
ED Attending Note
Patient seen and examined by attending physician: Yes
I performed a history and physical exam of patient and discussed management with resident, I reviewed resident's note and agree with documented findings and plan of care.: Yes
Discharge Plan
Departure
Patient Disposition: Admit
Date of Disposition: 01/21/24
Time of Disposition: 20:17
Admit to: Med/Surg
Presentation/result/management discussed w/ accepting MD/DO: Hospitalist
Patient with high blood pressure during this ER visit?: Yes
Condition: Fair
Discharge Problem:
Proctocolitis, Multiple sclerosis
Prescriptions:
No Action
baclofen 20 mg tablet
20 mg PO TID
oxcarbazepine 600 mg tablet
600 mg PO TID
Ocrevus 30 mg/mL Solution
600 mg IV [id number]
Patient Comments:
Due in December 2023
atorvastatin 80 mg Tablet
80 mg PO QPM Qty: 90 5RF
aspirin 81 mg Tablet,Chewable
81 mg PO DAILY Qty: 1 0RF
pregabalin 50 mg Capsule
50 mg PO TID Qty: 240 5RF
Patient Comments:
01/21/2024: last filled 11/20/23, 90 tabs for 30 days from [id number]
metoprolol succinate 25 mg Tablet Extended Release 24 Hr
25 mg PO DAILY Qty: 90 5RF
pantoprazole [Protonix] 40 mg tablet,delayed release (DR/EC)
80 mg PO DAILY Qty: 60 0RF
sucralfate [Carafate] 1 gram tablet
1 g PO BID Qty: 60 0RF
sucralfate 100 mg/mL suspension
1 g PO QID
Referrals:
Joaquin Duong DO [Family Provider] -
Interventions
Interventions:
*Risk Screen - Suicide Last Done: 01/21/24 16:40
*General Assessment Last Done: 01/21/24 17:30
*Neglect/Abuse Screening Last Done: 01/21/24 16:40
ED- Fall Risk Assessment Last Done: 01/21/24 17:30
*ED COVID-19 Vaccine History Last Done: 01/21/24 15:55
EP-Ypgdeu-Qlnanfqpcg Assessment Last Done: 01/21/24 16:40
Discharge Date and Time
Print Language: MARTINIQUAIS
[2024-01-21 17:04] LABS: % Basophils 0.4 % (0-2); % Eosinophils 1.6 % (0-6); % Immature Granulocytes 0.4 % (0-0.5); % Lymphocytes 9.3 % (20.5-51.1); % Monocytes 9.5 % (1.7-9.3); % Neutrophils 78.8 % (42.2-75.2); Absolute Basophils 0.1 10^3/uL (0-0.2); Absolute Eosinophils 0.2 10^3/uL (0-0.7); Absolute Immature Granulocytes 0.1 10^3/uL (0-0.05); Absolute Lymphocytes 1.4 10^3/uL (1.2-3.4); Absolute Monocytes 1.4 10^3/uL (0.1-0.6); Absolute Neutrophils 11.8 10^3/uL (1.4-6.5); Hematocrit 47.2 % (39.0-52.0); Hemoglobin 16.3 g/dL (13.0-18.0); Mean Corp Hgb Conc. 34.5 g/dL (33.0-37.0); Mean Corpuscular Hgb 30.1 pg (27.0-31.0); Mean Corpuscular Volume 87.1 fL (80.0-94.0); Mean Platelet Volume 11.9 fL (7.4-10.4); Nucleated Red Blood Cells % 0 % (-); Platelet Count 273 10^3/uL (130-400); Red Blood Cell Count 5.42 10^6/uL (4.70-6.10); Red Cell Dist. Width 12.6 % (11.5-14.5)
[2024-01-21 17:20] LABS: ALT (SGPT) 16 U/L (0-50); AST (SGOT) 18 U/L (17-59); Albumin 4.6 g/dl (3.5-5.0); Alkaline Phosphatase 109 U/L (38-126); Blood Urea Nitrogen 16 mg/dl (9-20); Calcium 9.5 mg/dl (8.4-10.2); Carbon Dioxide 26 mmol/L (22-30); Chloride 103 mmol/L (98-107); Estimated Creatinine Clearance > 125 ml/min; Glucose 96 mg/dl (70-99); Lipase 75 U/L (23-300); Sodium 135 mmol/L (135-145); Total Bilirubin 0.3 mg/dl (0.2-1.3); Total Protein 6.6 g/dl (6.3-8.2); eGFR > 60.00
[2024-01-21] MEDS: BENTYL 20 MG PO (17:35)
[2024-01-21] MEDS: OMNIPAQUE 50 ML PO (17:40)
--- NOTE | 2024-01-21 20:40 | HPS.HSE ---
Family Physician
-
Family Physician: Joaquin Duong
Chief Complaint
-
Abdominal pain, multiple episodes pudding-like stool
History of Present Illness
58-year-old male complaining of lower abdominal pain and rectal bleeding with multiple episodes of pudding-like kang stool since Friday 3 days ago. He reports some blood in the stool and on toilet paper. He states he had 4 episodes of incontinence
of stool where he felt pressure in the rectum but was unable to get to the bathroom in time and soiled for of his sweatpants he had history of a bleeding 35 mm rectosigmoid polyp injected with epinephrine and resected with hemostatic clips placed
August 29, 2023. 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 Granados. He denies recent travel, recent antibiotics, no raw foods, sick contacts, fever,
chills, chest pain, palpitations, shortness of breath, cough, nausea, vomiting, urinary symptoms. Other PMH includes multiple sclerosis relapsing form , neuropathy, insomnia, diverticulosis sigmoid, transverse, descending colon, multiple sigmoid
polyps, internal hemorrhoids
Medical History
Past Medical History
Past Medical History: Reports Other
Additional Past Medical History:
Adenocarcinoma sigmoid colon with resection
multiple sclerosis relapsing form ,
neuropathy,
insomnia
diverticulosis sigmoid, transverse, descending colon, multiple sigmoid polyps,
internal hemorrhoids
Past Surgical History: Reports Other
Additional Past Surgical History:
Robotic resection sigmoid colon secondary to adenocarcinoma
Appendectomy
Social History
Tobacco: Smoker (Reports occasional)
Alcohol: None
Drug: None
Personal:
Living: With Family ()
Employment: Employed
Family History
Family History: Other (Father dementia, CAD, [place] mother living in her 90s history of IBS, memory impairment)
Allergies / Home Medications
Allergies reflects when Allergies were last updated in [facility].
Home Medications with original date entered in [facility]
Allergy/Medication List:
Allergies
Allergy/AdvReac Type Severity Reaction Status Date / Time
amoxicillin Allergy Hives Verified 01/21/24 15:57
azithromycin [From Zithromax] Allergy Hives Verified 01/21/24 15:57
ceftriaxone sodium Allergy Hives Verified 01/21/24 15:57
[From Rocephin]
Penicillins Allergy Hives Verified 01/21/24 15:57
Home Medications
baclofen 20 mg tablet 20 mg PO TID Muscle Spasms 12/03/22
ocrelizumab 30 mg/mL intravenous solution (Ocrevus) 600 mg IV [id number] MULTI SCLEROSIS 12/03/22
oxcarbazepine 600 mg tablet 600 mg PO TID Seizures 12/03/22
aspirin 81 mg chewable tablet 81 mg PO DAILY #1 tab 12/05/22
atorvastatin 80 mg tablet 80 mg PO QPM #90 tabs 12/05/22
metoprolol succinate 25 mg tablet,extended release 24 hr 25 mg PO DAILY #90 tabs 12/05/22
pregabalin 50 mg capsule 50 mg PO TID #240 caps 12/05/22
pantoprazole 40 mg tablet,delayed release (Protonix) 80 mg (2 x 40 mg) PO DAILY #60 tabs 01/18/24
sucralfate 1 gram tablet (Carafate) 1 g PO BID #60 tabs 01/18/24
Miralax 17 g PO DAILY 01/21/24
sucralfate 100 mg/mL oral suspension 1 g PO QID 01/21/24
Review of Systems
-
History Source: Patient
A 12 point ROS was completed and negative except as noted: Yes
Constitutional: Denies Fever or Chills
EENT: Denies Sore Throat or Runny Nose
Respiratory: Denies Cough or Trouble Breathing
Cardiac: Denies Chest Pain, Diaphoresis or Palpitations
Abdomen/GI: Reports Abdominal Pain (Generalized), Diarrhea and Bloody Stools; Denies Nausea, Vomiting, Constipated or Black Stools
: Denies Dysuria, Frequency, Flank Pain, Incontinence, Difficulty Voiding or Bleeding
Musculoskeletal: Denies Joint Pain or Edema
Skin: Denies Itching or Rash
Neurological: Denies Dizzy, Headache or Weakness
Endocrine: Reports No Symptoms
Hematologic/Lymphatic: Reports No Symptoms
Psych: Reports Calm
Physical Exam
Vital Signs
Vital Signs
Temp Pulse Resp BP Pulse Ox
98.2 F 102 20 124/88 95
01/21/24 15:55 01/21/24 15:55 01/21/24 15:55 01/21/24 15:55 01/21/24 15:55
Physical Exam
General: Conversant and Pain; No Fever or Chills
HEENT: NormoCephalic, Anicteric, Moist mucous membranes, PERRLA, [place] Conjunctivae and No Ptosis
Respiratory: Clear; No Wheezes, Rales or Rhonchi
Cardiac: S1/S2 and Regular Rhythm; No Murmur, Rub, Gallop or Peripheral Edema
Breast: Deferred by me
GI: Soft, Non Distended, Normal Bowel Sounds, Tender (Generalized) and No Hepatosplenomegaly
Rectal: Deferred by Provider
Genito-urinary: Deferred by me
Musculoskeletal: No Clubbing, No Cyanosis and No Edema
Skin: Warm and Dry; No Rash
Neuro: AO x 3, No Motor Deficits, Nonfocal/grossly intact, Cranial Nerves Intact and No Sensory Deficits; No Slurred Speech, Facial Droop or Tremors
Psych: Calm
Laboratory Results
-
01/21/24 16:42
01/21/24 16:42
Laboratory Results
Total Bilirubin 0.3 mg/dl (0.2-1.3) 01/21/24 16:42
AST 18 U/L (17-59) 01/21/24 16:42
ALT 16 U/L (0-50) 01/21/24 16:42
Alkaline Phosphatase 109 U/L (38-126) 01/21/24 16:42
Lipase 75 U/L (23-300) 01/21/24 16:42
Impression/Plan
-
Impression/plan:
Admit to MedSurg
#Infectious proctocolitis
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
-Status post robotic sigmoid colon resection October 23, [address] Granados
-Check stool studies , wbc , culture , ova parasite, norvirus ciff
-Hold aspirin 81 mg daily
-Hold miralax daily
-IV NSS
Npo except meds
-IV Levaquin, IV Flagyl
-Dilaudid as needed pain
-Follow CBC, CMP, blood cultures x 2
[address] abdomen pelvis with IV and oral contrast: Most compatible with mild infectious or inflammatory proctocolitis
Colonoscopy August 2023:Hx diverticulosis sigmoid/transverse/descending colon
History of internal hemorrhoids
Multiple colonic polyps
35 mm rectosigmoid polyp injected with epinephrine resected with hemostatic clips placed 08/29/2023
#Multiple sclerosis hx - Relapsing form
Patient receives Ocrevus 600 mg IV every 6 months
-Continue Trileptal 600 mg p.o. 3 times daily takes for nerve pain to body
#HTN-benign
BP stable
-Continue metoprolol 25 mg daily
#Chronic neuropathy
-Continue baclofen 20 mg 3 times daily, Lyrica 50 mg p.o. 3 times daily
#GERD
-Continue sucralfate 1 g p.o. 4 times daily
#NSVT Hx
#CAD
#NSTEMI age 45
-Hold aspirin, continue statin, beta-quoc
#Insomnia
No reported meds
DVT prophylaxis
SCDs
full code
[2024-01-21] MEDS: FLAGYL 500 MG 100 IV (21:01)
[2024-01-21] MEDS: NSS 1000 IV ×2 (21:03→22:06)
[2024-01-21] MEDS: LEVAQUIN 150 IV (21:06)
--- NOTE | 2024-01-21 21:32 | W.PN.UPDATE ---
Update Note
Progress Note Update
This is an addendum to the H&P written by JUAREZ Waters on 01/21/2024. Patient seen examined independent with COTTRELL BLOWER.
58-year-old male past medical history of adenocarcinoma of sigmoid colon status post sigmoid resection with anastomosis in September, multiple sclerosis on immunotherapy presenting with 10 days of persistent abdominal pain, watery diarrhea with bright
red blood per rectum. CT scan shows mild infectious/inflammatory proctocolitis. Check stool culture, C. difficile, norovirus, ova and parasites, n.p.o., IV fluids, Levaquin/Flagyl.
[2024-01-21 21:55] VITALS: BP 128/86
[2024-01-21 22:07] VITALS: BMI 26.5
[2024-01-21] MEDS: DILAUDID 1 MG IV (22:09)
[2024-01-21 22:32] VITALS: BP 115/82
[2024-01-21] MEDS: CARAFATE SUSPENSION 1 GM PO (22:37)
[2024-01-21] MEDS: TRILEPTAL 600 MG PO (22:38)
[2024-01-21] MEDS: LYRICA 50 MG PO (22:38)
[2024-01-21] MEDS: LIORESAL 20 MG PO (22:38)
[2024-01-22] MEDS: MELATONIN 5 MG PO (00:15)
[2024-01-22] MEDS: DILAUDID 0.5 MG IV ×2 (01:25→06:23)
[2024-01-22] MEDS: FLAGYL 500 MG 100 IV ×3 (03:34→20:41)
[2024-01-22] MEDS: DILAUDID 1 MG IV ×2 (03:41→08:19)
[2024-01-22 07:00] VITALS: BP 127/72
[2024-01-22] MEDS: LIORESAL 20 MG PO ×3 (07:19→20:43)
[2024-01-22] MEDS: PROTONIX 80 MG PO (08:09)
[2024-01-22] MEDS: TOPROL XL 25 MG PO (08:09)
[2024-01-22] MEDS: TRILEPTAL 600 MG PO ×3 (08:09→20:42)
[2024-01-22] MEDS: CARAFATE SUSPENSION 1 GM PO ×2 (08:10→12:48)
[2024-01-22] MEDS: CARAFATE 1 GRAM PO ×2 (08:11→20:41)
[2024-01-22] MEDS: LYRICA 50 MG PO ×3 (08:11→20:43)
[2024-01-22] MEDS: NSS 1000 IV ×2 (08:12→17:12)
[2024-01-22 08:13] LABS: ALT (SGPT) 13 U/L (0-50); AST (SGOT) 18 U/L (17-59); Albumin 3.7 g/dl (3.5-5.0); Alkaline Phosphatase 93 U/L (38-126); Blood Urea Nitrogen 11 mg/dl (9-20); Calcium 8.7 mg/dl (8.4-10.2); Carbon Dioxide 21 mmol/L (22-30); Chloride 105 mmol/L (98-107); Estimated Creatinine Clearance > 125 ml/min; Glucose 94 mg/dl (70-99); Potassium 3.4 mmol/L (3.5-5.1); Sodium 134 mmol/L (135-145); Total Bilirubin 0.6 mg/dl (0.2-1.3); Total Protein 5.6 g/dl (6.3-8.2); eGFR > 60.00
[2024-01-22 08:16] LABS: % Basophils 0.9 % (0-2); % Eosinophils 4.9 % (0-6); % Immature Granulocytes 0.3 % (0-0.5); % Lymphocytes 27.1 % (20.5-51.1); % Monocytes 14.5 % (1.7-9.3); % Neutrophils 52.3 % (42.2-75.2); Absolute Basophils 0.1 10^3/uL (0-0.2); Absolute Eosinophils 0.5 10^3/uL (0-0.7); Absolute Lymphocytes 2.5 10^3/uL (1.2-3.4); Absolute Monocytes 1.3 10^3/uL (0.1-0.6); Absolute Neutrophils 4.9 10^3/uL (1.4-6.5); Hematocrit 40.1 % (39.0-52.0); Hemoglobin 14.1 g/dL (13.0-18.0); Mean Corp Hgb Conc. 35.2 g/dL (33.0-37.0); Mean Corpuscular Hgb 30.6 pg (27.0-31.0); Mean Platelet Volume 12.3 fL (7.4-10.4); Nucleated Red Blood Cells % 0 % (-); Platelet Count 228 10^3/uL (130-400); Red Blood Cell Count 4.61 10^6/uL (4.70-6.10); Red Cell Dist. Width 12.6 % (11.5-14.5); White Blood Cell Count 9.3 10^3/uL (4.8-10.8)
[2024-01-22] MEDS: KCL 270 MEQ IV (09:01)
[2024-01-22 09:58] VITALS: BP 140/88
[2024-01-22] MEDS: MORPHINE SULFATE 2 MG IV ×2 (11:18→15:37)
[2024-01-22] MEDS: MORPHINE SULFATE 1 MG IV ×2 (13:03→20:53)
--- NOTE | 2024-01-22 13:14 | PTCARENOTE ---
Patient with small episode of loose, bloody mucoid stool in toilet. Patient states abd pain and cramping rated 5-6/10 partially relieved by PRN IV morphine. MD made aware, no new orders at this time.
--- NOTE | 2024-01-22 13:24 | W.PN.HOSP.TC ---
Today's Communication/Plan
-
Gi consulted
Abx
f/u cultures
Assessment / Plan
Assessment / Plan
Physical Exam
General: Conversant and Pain; No Fever or Chills
HEENT: NormoCephalic, Anicteric, Moist mucous membranes, PERRLA, [place] Conjunctivae and No Ptosis
Respiratory: Clear; No Wheezes, Rales or Rhonchi
Cardiac: S1/S2 and Regular Rhythm; No Murmur, Rub, Gallop or Peripheral Edema
Breast: Deferred by me
GI: Soft, Non Distended, Normal Bowel Sounds, Tender (lower quadrants - improved) and No Hepatosplenomegaly
Rectal: Deferred by Provider
Genito-urinary: Deferred by me
Musculoskeletal: No Clubbing, No Cyanosis and No Edema
Skin: Warm and Dry; No Rash
Neuro: AO x 3, No Motor Deficits, Nonfocal/grossly intact, Cranial Nerves Intact and No Sensory Deficits; No Slurred Speech, Facial Droop or Tremors
Psych: Calm
#Infectious proctocolitis
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
-Status post robotic sigmoid colon resection October 23, [address] Granados
-Check stool studies , wbc , culture , ova parasite, norvirus ciff
-Hold miralax daily
-IV NSS
-CLD
-IV Levaquin, IV Flagyl
-Dilaudid as needed pain
-Gi consulted
#Multiple sclerosis hx - Relapsing form
Patient receives Ocrevus 600 mg IV every 6 months
-Continue Trileptal 600 mg p.o. 3 times daily takes for nerve pain to body
#HTN-benign
BP stable
-Continue metoprolol 25 mg daily
#Chronic neuropathy
-Continue baclofen 20 mg 3 times daily, Lyrica 50 mg p.o. 3 times daily
#GERD
-Continue sucralfate 1 g p.o. 4 times daily
#NSVT Hx
#CAD
#NSTEMI age 45
-aspirin, continue statin, beta-quoc
#Hypokalemia
-monitor and replete
#Insomnia
No reported meds
DVT prophylaxis
SCDs due to bleed
full code
Anticipated Discharge: Within 24 hours
Subjective/Interval History
-
Date of Service: January 22, 2024
Still having bloody/mucus filled stool, although abdominal tenderness improved
Objective Data
-
Labs:
Laboratory Results
01/22/24
06:31
WBC 9.3
Hgb 14.1
Hct 40.1
Plt Count 228
Sodium 134 L
Potassium 3.4 L
Chloride 105
Carbon Dioxide 21 L
BUN 11
Creatinine 0.6 L
Glucose 94
Calcium 8.7
Total Bilirubin 0.6
AST 18
ALT 13
Alkaline Phosphatase 93
Vital Signs:
Vital Signs
Temp Pulse Resp BP Pulse Ox
97.6 F 62 18 127/72 93
01/22/24 07:00 01/22/24 08:09 01/22/24 07:00 01/22/24 08:09 01/22/24 07:00
I&O
01/21/24 01/22/24 01/23/24
06:59 06:59 06:59
Intake Total 1200 / 1200
Output Total 400 / 400
Balance 800 / 800
Review of Systems
-
History Source: Patient
All other systems: Not reviewed unless documented
Data Reviewed
-
Diagnostic Radiology: Image personally visualized and interpreted and Report Reviewed by me
CT Scan: Image personally visualized and interpreted and Report Reviewed by me
Labs: Labs Reviewed by me
--- NOTE | 2024-01-22 13:51 | CON.GI ---
Addendum entered and electronically signed by Anthony Connelly MD 01/22/24 17:42:
I saw and examined the patient.
The PA's note was reviewed and I agree with the note.
Comment:
The pt is a 58 year-old male with h/o sigmoid adenocarcinoma s/p sigmoidectomy/LAR (surg path: T2 N0 M0) on 10/01/2023 who p/w abdominal pain, diarrhea and BRBPR. Also has h/o anal fissure, MS on Ocrevus, STEMI s/p ELIGIO (11/2022) on ASA, COPD,
cardiomyopathy, HTN, and hyperlipidemia.
Impression / Rec:
1. Abdominal pain, diarrhea, BRBPR - had sigmoidectomy in 09/2023, no adjuvant chemo/RTX after. CT on admission showed mild bowel wall thickening of the descending colon, sigmoid colon and rectum most compatible with proctocolitis. His presenting
symptoms of tenesmus is consistent with proctitis seen from CT. Afebrile, had leukocytosis of 15 but is now 9.3. Stool studies are negative for Cryptosporidium, Giardia, C. difficile, norovirus, E. coli and no white blood cells are seen.
Salmonella/Shigella and Campylobacter pending. Pt reports he's feeling much better already. Follow up with rest of stool studies, if pt remains symptomatic, may need flx sig for further eval.
Original Note:
Consultation
-
Date/Time Consultation Requested: 01/22/24 1320
Date/Time Consultation Performed: 01/22/24 1351
Requesting Provider: Dr. Hopson
Performing Provider: Dr. Connelly/ROSEANNE Piedra
Reason for Consultation: abdominal pain, rectal bleeding
Medical History
Chief Complaint / HPI
Chief Complaint: abdominal pain, rectal bleeding
History of Present Illness:
58-year-old male with past medical history of colorectal cancer of the sigmoid colon diagnosed 08/29/2023 status post robotic sigmoid resection/low anterior resection T2 N0 M0 with Dr. Granados on 10/01/2023 also with a history of an anal fissure as well
as chronic constipation. The patient also carries a history of MS and is on Ocrevus. Prior history of ST elevation [place] with drug-eluting stent (11/2022) initially on Brilinta and aspirin. Now on aspirin 81mg only, COPD, cardiomyopathy,
hypertension, hyperlipidemia who initially presented to the emergency room on 01/09/2024 with abdominal pain in the epigastric area with a burning sensation with out any bowel movement abnormalities that started 3 days prior. The patient was given
PPI, Bentyl, morphine and Carafate. He had a CT scan as well as labs and was DC with outpatient follow up. The patient had his Ocrevus infusion on 01/12/2024. He came back to the emergency room on 01/18/2024 with recurrent abdominal pain worse at
nighttime. The patient was given a GI cocktail, ultrasound the abdomen was obtained, labs were obtained, without any abnormalities. The patient was advised to follow a bland diet and start pantoprazole 80 mg daily as well as Carafate 1 g twice
daily and discharged home. We did offer him an appointment on January 18 however the patient was not able to come to the office on that day. He presented to the emergency room on 01/21/2024 with lower abdominal pain, diarrhea with urgency. The
patient states that he started to have kang-colored bowel movements up to 10-15 bowel movements a day. Associated with severe abdominal spasm. He states that it brought 'tears to my eyes'. He did have some bright red blood per rectum with wiping
only. He did not notice any blood mixed within his stool. He states 'I know what blood mixed in stool looks like from when I had my colon cancer'. He also states that he has less abdominal pain, tenderness and spasm today and that he feels '30%
better today'. He states that he is only had 3 bowel movements today which are sediment like stools that are still light kang in nature. He denies any fevers, chills, vomiting, melena, hematochezia, dysphagia or dyne aphasia. No early satiety or
unintentional weight loss. He did have nausea queasiness and dry heaves upon initiation of the symptoms approximately 10 days ago. He is tolerating clear liquids at the present time. He had no recent sick contacts, changes in medications, spoiled
foods, raw foods, changes in medications, antibiotics and has not had steroids in over 3 years. He does state that he is prone to illnesses given his MS and Ocrevus.
Past Medical History
Past Medical History: CAD (ME 11/2022), Cancer (Colon cancer), COPD, HTN, Hypercholesterolemia and Other ( Cardiomyopathy, MS, anal fissure)
Past Surgical History: Bowel Resection (Sigmoid resection/low anterior resection)
Social History
Tobacco: Non-Smoker
Alcohol: None
Drug: None
Personal:
Living: With Family
Employment: Employed
Family History
Family History: Other (No family history gastrointestinal malignancy or IBD)
Allergies / Home Medications
Allergy/AdvReac Type Severity Reaction Status Date / Time
amoxicillin Allergy Hives Verified 01/21/24 15:57
azithromycin [From Zithromax] Allergy Hives Verified 01/21/24 15:57
ceftriaxone sodium Allergy Hives Verified 01/21/24 15:57
[From Rocephin]
Penicillins Allergy Hives Verified 01/21/24 15:57
�Medication �Instructions �Recorded
baclofen 20 mg tablet 20 mg PO TID Muscle Spasms 12/03/22
ocrelizumab 30 mg/mL intravenous 600 mg IV [id number] MULTI SCLEROSIS 12/03/22
solution (Ocrevus)
oxcarbazepine 600 mg tablet 600 mg PO TID Seizures 12/03/22
aspirin 81 mg chewable tablet 81 mg PO DAILY #1 tab 12/05/22
atorvastatin 80 mg tablet 80 mg PO QPM #90 tabs 12/05/22
metoprolol succinate 25 mg 25 mg PO DAILY #90 tabs 12/05/22
tablet,extended release 24 hr
pregabalin 50 mg capsule 50 mg PO TID #240 caps 12/05/22
pantoprazole 40 mg tablet,delayed 80 mg (2 x 40 mg) PO DAILY #60 tabs 01/18/24
release (Protonix)
sucralfate 1 gram tablet (Carafate) 1 g PO BID #60 tabs 01/18/24
Miralax 17 g PO DAILY Constipation 01/21/24
sucralfate 100 mg/mL oral 1 g PO QID Gastrointestinal Issue 01/21/24
suspension
Review of Systems
-
All other systems: A 12 pt ROS was Negative except as stated above in HPI
Vital Signs
Temp Pulse Resp BP Pulse Ox
97.6 F 62 18 127/72 93
01/22/24 07:00 01/22/24 08:09 01/22/24 07:00 01/22/24 08:09 01/22/24 13:28
Physical Exam
Exam
General: No Apparent Distress
HEENT: Anicteric
Respiratory: Clear (anterior)
Cardiac: Regular Rhythm
GI: Soft, Non Distended, Normal Bowel Sounds and Tender (mild diffuse tenderness)
Musculoskeletal: No Edema
Skin: Warm and Dry
Neuro: AO x 3
Psych: Calm
Results
WBC 9.3 10^3/uL (4.8-10.8) 01/22/24 06:31
Hgb 14.1 g/dL (13.0-18.0) 01/22/24 06:31
Hct 40.1 % (39.0-52.0) 01/22/24 06:31
MCV 87.0 fL (80.0-94.0) 01/22/24 06:31
Plt Count 228 10^3/uL (130-400) 01/22/24 06:31
Absolute Neuts (auto) 4.9 10^3/uL (1.4-6.5) 01/22/24 06:31
Sodium 134 mmol/L (135-145) L 01/22/24 06:31
Potassium 3.4 mmol/L (3.5-5.1) L 01/22/24 06:31
Chloride 105 mmol/L (98-107) 01/22/24 06:31
Carbon Dioxide 21 mmol/L (22-30) L 01/22/24 06:31
BUN 11 mg/dl (9-20) 01/22/24 06:31
Creatinine 0.6 mg/dL (0.7-1.3) L 01/22/24 06:31
Calcium 8.7 mg/dl (8.4-10.2) 01/22/24 06:31
Total Bilirubin 0.6 mg/dl (0.2-1.3) 01/22/24 06:31
AST 18 U/L (17-59) 01/22/24 06:31
ALT 13 U/L (0-50) 01/22/24 06:31
Alkaline Phosphatase 93 U/L (38-126) 01/22/24 06:31
Lipase 75 U/L (23-300) 01/21/24 16:42
Diagnostic Image Results:
CT Abd/Pelvis with oral/IV contrast 01/21/24:
IMPRESSION:
CT findings are most compatible with a mild infectious or inflammatory proctocolitis.
Electronically signed by Shyam Sidhu 01/21/2024 8:03 PM
CXR/Abd XR 01/21/24:
IMPRESSION:
Nonobstructive bowel gas pattern.
Electronically signed by Shyam Sidhu 01/21/2024 6:42 PM
US Abd 01/18/24:
IMPRESSION: Normal.
CT Abd/Pelvis with oral and IV cont 01/09/24:
IMPRESSION: No acute pathology of the abdomen or pelvis identified.
Moderate fecal material throughout the colon. Stable
Mild diverticulosis. Stable abdominal
Postsurgical change.
Mild prostate hypertrophy. Stable
Electronically signed by Yumiko Kapoor DO 01/09/2024 7:31 PM
Prior GI Procedures:
EGD: never
08/29/2023 colonoscopy: diverticulosis in the sigmoid colon, in the descending colon and the transverse colon. 3 1 to 2 mm polyps in the sigmoid colon and in the transverse colon removed with jumbo forceps. Resected and retrieved. 5 to 6 mm polyps in
the sigmoid colon and transverse colon and hepatic flexure in the cecum. Removed. One 8 mm polyp at the rectosigmoid colon removed with hot snare resected and retrieved. Rule out malignancy, tumor in the sigmoid colon at 20 mm. Biopsied and
tattooed. One(35 mm) polyp of the rectosigmoid colon removed with hot snare resected retrieved. Injected. Clips were placed. Internal hemorrhoids.
Assessment / Plan
-
58-year-old male with past medical history of colorectal cancer of the sigmoid colon diagnosed 08/29/2023 status post robotic sigmoid resection/low anterior resection T2 N0 M0 with Dr. Granados on 10/01/2023 also with a history of an anal fissure as well
as chronic constipation, on Miralax. History of MS and is on Ocrevus, last infusion on 01/12/24. Prior history of ST elevation [place] with drug-eluting stent (11/2022) initially on Brilinta and aspirin. Now on aspirin 81mg only, COPD, cardiomyopathy,
hypertension, hyperlipidemia who has had 10-day history of initially epigastric abdominal pain that was dull aching with associated nausea and dry heaves that has progressed to diarrhea multiple episodes with severe abdominal cramping with only
bright red blood on tissue with wiping. The patient unfortunately has had 2 ER visits prior to this admission. He has had normal labs prior to now as well as normal ultrasound and normal initial CT scan up until this present time where it shows
mild bowel wall thickening of the descending colon, sigmoid colon and rectum most compatible with proctocolitis. He remains afebrile but came in with a WBC count of 15 but is now 9.3 this morning. He also has a potassium of 3.4 down from 4.0
yesterday. Stool studies are negative for Cryptosporidium, Giardia, C. difficile, norovirus, E. coli and no white blood cells are seen. We are still awaiting stool studies for Salmonella/Shigella and Campylobacter.
Impression:
Diarrhea, with CT findings of mild colitis of descending, sigmoid and rectum-> most likely infectious, less likely ischemic
Epigastric pain with nausea-> improving. Likely associated with infectious, viral process, food borne
Hx colon cancer s/p sig resection/LAR T2 N0 M0 (10/01/2023)
Hx anal fissure-> resolved with bowel regimen of Miralax and Rectiv
Hx constipation on Miralax daily
MS on Ocrevus
CAD with ELIGIO (11/2022) on ASA 81 mg
Plan:
-Await pending stool studies
-Continue clear liquid diet for now, if continues to improve will be able to advance.
-Continue Levaquin and Flagyl
-Reduce Pantoprazole to 40 mg daily
-Reduce Carafate to BID
-Prefer to avoid narcotics if possible.
-Okay to use Bentyl for spasm
-Barrier cream for rectal irritation. Patient does not feel like fissure discomfort.
-Further recommendations to be forthcoming.
Data Reviewed
-
Radiology: Report Reviewed by me
CT Scan: Report Reviewed by me
Ultrasound: Report Reviewed by me
Old Records: Reviewed
-
-
Thank you for consultation and allowing me to participate in the patient's care. Please call the hydraulic controls technician GI physician during the after hours with any questions or concerns.
[2024-01-22 15:00] VITALS: BP 113/67
[2024-01-22] MEDS: DESITIN MAXIMUM STRENGTH PASTE 1 APPLIC TOPICAL (15:41)
[2024-01-22] MEDS: LIPITOR 80 MG PO (17:12)
--- NOTE | 2024-01-22 17:20 | CM ---
Initial assessment completed with patient who lives with his and 23 y/o daughter in a 2 story home with B/B on 2nd and 1/2 bath on 1st, no stairs to enter. Patient has a SPC in the home but does not use, no in-home services. 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 No history of psychiatric illness. Pharmacy is [facility] on [address] in [place] and PCP is Dr. Joaquin Duong. Anticipate Home with no needs.
--- NOTE | 2024-01-22 17:30 | PTCARENOTE ---
Patient c/o blood when wiping after having BM. Pt states 4 loose BM today in bathroom with small amount of blood in stool and when wiping with toilet paper. Pt states abdominal cramping has improved with PRN IV morphine, says perineal area is 'sore'
when wiping. GI made aware, zinc oxide cream ordered for perineal irritation.
--- NOTE | 2024-01-22 17:42 | W.PN.UPDATE ---
Update Note
Progress Note Update
billing
[2024-01-22] MEDS: LEVAQUIN 100 IV (22:03)
[2024-01-22 23:09] VITALS: BP 135/70
[2024-01-23] MEDS: FLAGYL 500 MG 100 IV ×3 (05:11→20:49)
[2024-01-23] MEDS: NSS 1000 IV (05:13)
--- NOTE | 2024-01-23 05:40 | PTCARENOTE ---
Pt c/o frequent trips to the bathroom, states he does not feel as though he is draining his bladder all the way when he urinates. Offered to bladder scan pt, pt agreeable. Post-void bladder scan yields 226mL. Pt adamant that he will not undergo
straight cath procedures, education provided on bladder scan/straight cath protocol. Pt denies previous hx of urinary retention or issues with prostate.
[2024-01-23 06:47] LABS: % Basophils 1.2 % (0-2); % Eosinophils 6.3 % (0-6); % Immature Granulocytes 0.3 % (0-0.5); % Lymphocytes 24.2 % (20.5-51.1); % Monocytes 11.9 % (1.7-9.3); % Neutrophils 56.1 % (42.2-75.2); Absolute Basophils 0.1 10^3/uL (0-0.2); Absolute Eosinophils 0.4 10^3/uL (0-0.7); Absolute Lymphocytes 1.7 10^3/uL (1.2-3.4); Absolute Monocytes 0.8 10^3/uL (0.1-0.6); Absolute Neutrophils 3.9 10^3/uL (1.4-6.5); Hematocrit 36.9 % (39.0-52.0); Hemoglobin 13.1 g/dL (13.0-18.0); Mean Corp Hgb Conc. 35.5 g/dL (33.0-37.0); Mean Corpuscular Hgb 30.2 pg (27.0-31.0); Mean Platelet Volume 11.8 fL (7.4-10.4); Nucleated Red Blood Cells % 0 % (-); Platelet Count 213 10^3/uL (130-400); Red Blood Cell Count 4.34 10^6/uL (4.70-6.10); Red Cell Dist. Width 12.6 % (11.5-14.5)
[2024-01-23 07:02] VITALS: BP 105/65
[2024-01-23 07:20] LABS: ALT (SGPT) 12 U/L (0-50); AST (SGOT) 16 U/L (17-59); Albumin 3.1 g/dl (3.5-5.0); Alkaline Phosphatase 82 U/L (38-126); Blood Urea Nitrogen 5 mg/dl (9-20); Calcium 8.3 mg/dl (8.4-10.2); Carbon Dioxide 22 mmol/L (22-30); Chloride 108 mmol/L (98-107); Estimated Creatinine Clearance > 125 ml/min; Glucose 89 mg/dl (70-99); Potassium 3.7 mmol/L (3.5-5.1); Sodium 133 mmol/L (135-145); Total Bilirubin 0.5 mg/dl (0.2-1.3); Total Protein 4.9 g/dl (6.3-8.2); eGFR > 60.00
--- NOTE | 2024-01-23 08:03 | PN.CDI ---
CDI
- -
CDI:
Physician Documentation Request
Admit Date: 01/21/24 21:34
Dear Doctor Lexie,
Please review the following and provide your response in the progress notes.
Clinical Indicators:
Laboratory Tests
01/21/24 01/22/24 01/23/24
16:42 06:31 06:13
Sodium 135 134 L 133 L
Based on the above, please clarify in the progress notes, the appropriate diagnosis, if significant, that supports the above abnormalities and additional evaluation, monitoring and/or treatment rendered:
Hyponatremia
Abnormal lab value, clinically insignificant
Other
Use of terms such as suspected, likely, concern for, or probable (associated with a specific diagnosis that is being evaluated, monitored, or treated as if it exists) are acceptable and can be coded in the inpatient setting, when documented at the
time of discharge.
Thank you,
Kaycee Swift RN BSN CCDS
CDI Specialist
please contact via tiger text
Please use your independent medical judgment in providing your response.
--- NOTE | 2024-01-23 08:06 | PN.CDI ---
CDI
- -
CDI:
Physician Documentation Request
Admit Date: 01/21/24 21:34
Dear Doctor Lexie,
Please review the following and provide your response in the progress notes.
Clinical Indicators:
GI Consult, 01/21
#1. ...CT on admission showed mild bowel wall thickening of the descending colon, sigmoid colon and rectum most compatible with proctocolitis.
#...presenting symptoms of tenesmus is consistent with proctitis seen from CT.
#Afebrile, had leukocytosis of 15 but is now 9.3.
PN, 01/21
#Infectious proctocolitis
Initial VS:
98.2 102 20 124/88 95%
Laboratory Tests
01/21/24 01/22/24 01/23/24
16:42 06:31 06:13
WBC 15.0 H 9.3 7.0
Please clarify which of the following most accurately describes the status of the patient's infection:
Sepsis, POA, now resolved
Localized Infection Only, Without Systemic Illness
- indicate the site/source, such as UTI, pneumonia etc.
Other
Sepsis
- Systemic manifestations of infection, with 2 or more SIRS criteria which include:
- Fever >100.4 degrees F or hypothermia < 96.8 degrees F
- Leukocytosis - WBC > 12,000 or leukopenia - WBC < 4,000 or > 10% bands
- Tachycardia > 90 beats per minute
- Tachypnea - RR > 20 breaths per minute or PaCO2 , 32mmHg
Source: Merck Manual 2013
- Indicate the known or suspected organism
- Indicate the known or suspected underlying infection, such as UTI, pneumonia or cellulitis
Use of terms such as suspected, likely, concern for, or probable (associated with a specific diagnosis that is being evaluated, monitored, or treated as if it exists) are acceptable and can be coded in the inpatient setting, when documented at the
time of discharge.
Thank you,
Kaycee Swift RN BSN CCDS
CDI Specialist
please contact via tiger text
Please use your independent medical judgment in providing your response.
[2024-01-23] MEDS: PROTONIX 40 MG PO (09:15)
[2024-01-23] MEDS: TRILEPTAL 600 MG PO ×3 (09:15→22:38)
[2024-01-23] MEDS: CARAFATE 1 GRAM PO ×2 (09:15→20:53)
[2024-01-23] MEDS: LOW STRENGTH ASPIRIN 81 MG PO (09:15)
[2024-01-23] MEDS: LYRICA 50 MG PO ×3 (09:15→22:39)
[2024-01-23] MEDS: LIORESAL 20 MG PO ×3 (09:16→22:39)
[2024-01-23] MEDS: TOPROL XL 25 MG PO (09:18)
--- NOTE | 2024-01-23 11:57 | W.PN.GI.CBS2 ---
Addendum entered and electronically signed by Rosmery Roger MD 01/23/24 16:34:
I saw and examined the patient.
The BEAD STRINGER or PA's note was reviewed and I agree with the note.
Comment: Patient reports that he has not had any bowel movement since yesterday. Abdominal pain is also improved. No nausea or vomiting.
Stool studies negative for infection.
Left-sided to sigmoiditis noted on CT scan, cannot rule out viral gastroenteritis.
Patient currently on antibiotics, can discontinue as there is no role for antibiotics at this time.
Monitor electrolytes and replete
Low residue diet
-Epigastric pain on admission, currently better.
[place] better on the Carafate, being tapered off, okay for PPI
Follow-up with Dr. Jim as outpatient
Original Note:
Today's Communication / Plan
-
Low residue diet
Assessment / Plan
-
58-year-old male with past medical history of colorectal cancer of the sigmoid colon diagnosed 08/29/2023 status post robotic sigmoid resection/low anterior resection T2 N0 M0 with Dr. Granados on 10/01/2023 also with a history of an anal fissure as well
as chronic constipation, on Miralax. History of MS and is on Ocrevus, last infusion on 01/12/24. Prior history of ST elevation [place] with drug-eluting stent (11/2022) initially on Brilinta and aspirin. Now on aspirin 81mg only, COPD, cardiomyopathy,
hypertension, hyperlipidemia who has had 10-day history of initially epigastric abdominal pain that was dull aching with associated nausea and dry heaves that has progressed to diarrhea multiple episodes with severe abdominal cramping with only
bright red blood on tissue with wiping. The patient unfortunately has had 2 ER visits prior to this admission. He has had normal labs prior to now as well as normal ultrasound and normal initial CT scan up until this present time where it shows
mild bowel wall thickening of the descending colon, sigmoid colon and rectum most compatible with proctocolitis. He remains afebrile but came in with a WBC count of 15 but is now 9.3 this morning. He also has a potassium of 3.4 down from 4.0
yesterday. Stool studies are negative for Cryptosporidium, Giardia, C. difficile, norovirus, E. coli and no white blood cells are seen. We are still awaiting stool studies for Salmonella/Shigella and Campylobacter.
Impression:
Diarrhea, with CT findings of mild colitis of descending, sigmoid and rectum-> most likely infectious, less likely ischemic
Epigastric pain with nausea-> improving. Likely associated with infectious, viral process, food borne
Hx colon cancer s/p sig resection/LAR T2 N0 M0 (10/01/2023)
Hx anal fissure-> resolved with bowel regimen of Miralax and Rectiv
Hx constipation on Miralax daily, on hold until patient's normal bowel movements returned
MS on Ocrevus
CAD with ELIGIO (11/2022) on ASA 81 mg
Plan:
-Await pending stool studies (Salmonella, Shigella and Campylobacter)
-Advance to low residue diet
-Continue Levaquin and Flagyl
-Pantoprazole to 40 mg daily
-Carafate to BID, can continue for 2 weeks.
-Prefer to avoid narcotics if possible.
-Okay to use Bentyl for spasm
-Barrier cream for rectal irritation. Patient does not feel like fissure discomfort.
-Follow-up appointment made with Dr. uGido at 4 PM
Subjective
Subjective
Date of Service: January 23, 2024
Patient states he is feeling '60% better'. No further epigastric discomfort. No further bowel movements since yesterday. Tolerating clear liquid diet without any difficulty. Stools negative for C. difficile, norovirus, E. coli, Cryptosporidium
and Giardia. Still awaiting Salmonella/Shigella and Campylobacter. Patient looking forward to eating solid food. Continues on Levaquin and Flagyl at this time as well as pantoprazole 40 mg daily and Carafate 1 g twice daily.
Objective
Data Reviewed
Laboratory Data:
Laboratory Results
01/23/24 06:13
01/23/24 06:13
Laboratory Results
Total Bilirubin 0.5 mg/dl (0.2-1.3) 01/23/24 06:13
AST 16 U/L (17-59) L 01/23/24 06:13
ALT 12 U/L (0-50) 01/23/24 06:13
Alkaline Phosphatase 82 U/L (38-126) 01/23/24 06:13
Lipase 75 U/L (23-300) 01/21/24 16:42
Vital Signs and I&O:
Vital Signs
Temp Pulse Resp BP Pulse Ox
97.6 F 63 18 123/66 96
01/23/24 07:02 01/23/24 09:18 01/23/24 07:02 01/23/24 09:18 01/23/24 07:02
I&O
01/22/24 01/23/24 01/24/24
06:59 06:59 06:59
Intake Total 1200 / 1200 1940 / 1940
Output Total 400 / 400 400 / 400
Balance 800 / 800 1540 / 1540
Physical Exam
Physical Exam
HEENT: Anicteric
Cardiology: Normal Sinus Rhythm
Pulmonary: Clear
GI: Soft, Non Distended, Non Tender and Normal Bowel Sounds
Extremities: No Edema
Neuro: Non Focal
--- NOTE | 2024-01-23 13:20 | W.PN.HOSP.TC ---
Today's Communication/Plan
-
adv to lrd
Assessment / Plan
Assessment / Plan
Physical Exam
General: Conversant and Pain; No Fever or Chills
HEENT: NormoCephalic, Anicteric, Moist mucous membranes, PERRLA, [place] Conjunctivae and No Ptosis
Respiratory: Clear; No Wheezes, Rales or Rhonchi
Cardiac: S1/S2 and Regular Rhythm; No Murmur, Rub, Gallop or Peripheral Edema
Breast: Deferred by me
GI: Soft, Non Distended, Normal Bowel Sounds, Tender (lower quadrants - improved) and No Hepatosplenomegaly
Rectal: Deferred by Provider
Genito-urinary: Deferred by me
Musculoskeletal: No Clubbing, No Cyanosis and No Edema
Skin: Warm and Dry; No Rash
Neuro: AO x 3, No Motor Deficits, Nonfocal/grossly intact, Cranial Nerves Intact and No Sensory Deficits; No Slurred Speech, Facial Droop or Tremors
Psych: Calm
#Infectious proctocolitis
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
-Status post robotic sigmoid colon resection October 23, [address] Granados
-Check stool studies , wbc , culture , ova parasite, norvirus ciff
-Hold miralax daily
-IV NSS
-CLD - advance to LRD
-IV Levaquin, IV Flagyl
-Dilaudid as needed pain
-Gi consulted
-Carafate to BID, can continue for 2 weeks
-Okay to use Bentyl for spasm
-Barrier cream for rectal irritation. Patient does not feel like fissure discomfort.
#Multiple sclerosis hx - Relapsing form
Patient receives Ocrevus 600 mg IV every 6 months
-Continue Trileptal 600 mg p.o. 3 times daily takes for nerve pain to body
#HTN-benign
BP stable
-Continue metoprolol 25 mg daily
#Hyponatremia
-ctm
#Chronic neuropathy
-Continue baclofen 20 mg 3 times daily, Lyrica 50 mg p.o. 3 times daily
#GERD
-Continue sucralfate 1 g p.o. 4 times daily
#NSVT Hx
#CAD
#NSTEMI age 45
-aspirin, continue statin, beta-quoc
#Hypokalemia
-monitor and replete
#Insomnia
No reported meds
DVT prophylaxis
SCDs due to bleed
full code
Anticipated Discharge: Within 24 hours
Subjective/Interval History
-
Date of Service: January 23, 2024
feels better, no bm since yesterday
Objective Data
-
Labs:
Laboratory Results
01/23/24
06:13
WBC 7.0
Hgb 13.1
Hct 36.9 L
Plt Count 213
Sodium 133 L
Potassium 3.7
Chloride 108 H
Carbon Dioxide 22
BUN 5 L
Creatinine 0.6 L
Glucose 89
Calcium 8.3 L
Total Bilirubin 0.5
AST 16 L
ALT 12
Alkaline Phosphatase 82
Vital Signs:
Vital Signs
Temp Pulse Resp BP Pulse Ox
97.6 F 63 18 123/66 96
01/23/24 07:02 01/23/24 09:18 01/23/24 07:02 01/23/24 09:18 01/23/24 07:02
I&O
01/22/24 01/23/24 01/24/24
06:59 06:59 06:59
Intake Total 1200 / 1200 1940 / 1940
Output Total 400 / 400 400 / 400
Balance 800 / 800 1540 / 1540
Review of Systems
-
History Source: Patient
All other systems: Not reviewed unless documented
Data Reviewed
-
Diagnostic Radiology: Image personally visualized and interpreted and Report Reviewed by me
CT Scan: Image personally visualized and interpreted and Report Reviewed by me
Labs: Labs Reviewed by me
[2024-01-23 15:00] VITALS: BP 124/74
--- NOTE | 2024-01-23 15:23 | CM ---
GI consult, advanced to low residue diet. Discharge Plan of Care: Home with no needs.
[2024-01-23] MEDS: LIPITOR 80 MG PO (16:59)
[2024-01-23] MEDS: LEVAQUIN 100 IV (20:52)
[2024-01-23 23:16] VITALS: BP 107/66
[2024-01-24] MEDS: FLAGYL 500 MG 100 IV (05:00)
[2024-01-24 07:50] VITALS: BP 124/71
[2024-01-24 07:56] LABS: % Basophils 0.9 % (0-2); % Eosinophils 5.1 % (0-6); % Immature Granulocytes 0.2 % (0-0.5); % Monocytes 11.2 % (1.7-9.3); % Neutrophils 59.6 % (42.2-75.2); Absolute Basophils 0.1 10^3/uL (0-0.2); Absolute Eosinophils 0.4 10^3/uL (0-0.7); Absolute Neutrophils 5.2 10^3/uL (1.4-6.5); Hemoglobin 13.3 g/dL (13.0-18.0); Mean Corp Hgb Conc. 35.9 g/dL (33.0-37.0); Mean Corpuscular Hgb 30.8 pg (27.0-31.0); Mean Corpuscular Volume 85.6 fL (80.0-94.0); Mean Platelet Volume 12.2 fL (7.4-10.4); Nucleated Red Blood Cells % 0 % (-); Platelet Count 222 10^3/uL (130-400); Red Blood Cell Count 4.32 10^6/uL (4.70-6.10); Red Cell Dist. Width 12.3 % (11.5-14.5); White Blood Cell Count 8.7 10^3/uL (4.8-10.8)
[2024-01-24] MEDS: LOW STRENGTH ASPIRIN 81 MG PO (08:11)
[2024-01-24] MEDS: TRILEPTAL 600 MG PO (08:11)
[2024-01-24] MEDS: TOPROL XL 25 MG PO (08:11)
[2024-01-24] MEDS: LYRICA 50 MG PO (08:11)
[2024-01-24] MEDS: LIORESAL 20 MG PO (08:11)
[2024-01-24] MEDS: PROTONIX 40 MG PO (08:11)
[2024-01-24] MEDS: CARAFATE 1 GRAM PO (08:11)
--- NOTE | 2024-01-24 08:26 | W.PN.GI.CBS2 ---
Today's Communication / Plan
-
Continues to feel remarkably better. Okay to use Desitin for perianal irritation.
Stool studies negative for infection.
Left-sided to sigmoiditis noted on CT scan, cannot rule out viral gastroenteritis.
Patient currently on antibiotics, can discontinue as there is no role for antibiotics at this time.
Monitor electrolytes and replete
Low residue diet
-Epigastric pain on admission, currently better.
Streeter better on the Carafate, being tapered off, okay for PPI
Follow-up with Dr. Jim as outpatient-will sign off, please call back if needed
Assessment / Plan
-
58-year-old male with past medical history of colorectal cancer of the sigmoid colon diagnosed 08/29/2023 status post robotic sigmoid resection/low anterior resection T2 N0 M0 with Dr. Granados on 10/01/2023 also with a history of an anal fissure as well
as chronic constipation, on Miralax. History of MS and is on Ocrevus, last infusion on 01/12/24. Prior history of ST elevation [place] with drug-eluting stent (11/2022) initially on Brilinta and aspirin. Now on aspirin 81mg only, COPD, cardiomyopathy,
hypertension, hyperlipidemia who has had 10-day history of initially epigastric abdominal pain that was dull aching with associated nausea and dry heaves that has progressed to diarrhea multiple episodes with severe abdominal cramping with only
bright red blood on tissue with wiping. The patient unfortunately has had 2 ER visits prior to this admission. He has had normal labs prior to now as well as normal ultrasound and normal initial CT scan up until this present time where it shows
mild bowel wall thickening of the descending colon, sigmoid colon and rectum most compatible with proctocolitis. He remains afebrile but came in with a WBC count of 15 but is now 9.3 this morning. He also has a potassium of 3.4 down from 4.0
yesterday. Stool studies are negative for Cryptosporidium, Giardia, C. difficile, norovirus, E. coli and no white blood cells are seen. We are still awaiting stool studies for Salmonella/Shigella and Campylobacter.
Impression:
Diarrhea, with CT findings of mild colitis of descending, sigmoid and rectum-> most likely infectious, less likely ischemic
Epigastric pain with nausea-> improving. Likely associated with infectious, viral process, food borne
Hx colon cancer s/p sig resection/LAR T2 N0 M0 (10/01/2023)
Hx anal fissure-> resolved with bowel regimen of Miralax and Rectiv
Hx constipation on Miralax daily, on hold until patient's normal bowel movements returned
MS on Ocrevus
CAD with ELIGIO (11/2022) on ASA 81 mg
Plan:
Continues to feel remarkably better. Okay to use Desitin for perianal irritation.
Stool studies negative for infection.
Left-sided to sigmoiditis noted on CT scan, cannot rule out viral gastroenteritis.
Patient currently on antibiotics, can discontinue as there is no role for antibiotics at this time.
Monitor electrolytes and replete
Low residue diet
-Epigastric pain on admission, currently better.
Streeter better on the Carafate, being tapered off, okay for PPI
Follow-up with Dr. Jim as outpatient-will sign off, please call back if needed
Subjective
Subjective
Date of Service: January 24, 2024
Patient denies any complaints. 1 small bowel movement this morning with wipe type bleeding. Irritation in the perianal area as per patient. Tolerating low residue diet and no abdominal pain.
Objective
Data Reviewed
Laboratory Data:
Laboratory Results
Total Bilirubin 0.5 mg/dl (0.2-1.3) 01/23/24 06:13
AST 16 U/L (17-59) L 01/23/24 06:13
ALT 12 U/L (0-50) 01/23/24 06:13
Alkaline Phosphatase 82 U/L (38-126) 01/23/24 06:13
Lipase 75 U/L (23-300) 01/21/24 16:42
Vital Signs and I&O:
Vital Signs
Temp Pulse Resp BP Pulse Ox
97.4 F 58 16 124/71 94
01/24/24 07:50 01/24/24 08:11 01/24/24 07:50 01/24/24 08:11 01/24/24 07:50
I&O
01/23/24 01/24/24 01/25/24
06:59 06:59 06:59
Intake Total 1940 / 1940 2360 / 2360
Output Total 400 / 400
Balance 1540 / 1540 2360 / 2360
Physical Exam
Physical Exam
GI: Soft, Non Distended and Non Tender
[2024-01-24 08:51] LABS: ALT (SGPT) 18 U/L (0-50); AST (SGOT) 19 U/L (17-59); Albumin 3.3 g/dl (3.5-5.0); Alkaline Phosphatase 79 U/L (38-126); Blood Urea Nitrogen 9 mg/dl (9-20); Calcium 8.6 mg/dl (8.4-10.2); Carbon Dioxide 24 mmol/L (22-30); Chloride 105 mmol/L (98-107); Estimated Creatinine Clearance > 125 ml/min; Glucose 102 mg/dl (70-99); Potassium 3.7 mmol/L (3.5-5.1); Sodium 133 mmol/L (135-145); Total Bilirubin 0.3 mg/dl (0.2-1.3); eGFR > 60.00
--- NOTE | 2024-01-24 11:34 | W.PN.HOSP.TC ---
Addendum entered and electronically signed by Thanh Owen MD 02/02/24 16:58:
Sepsis, POA, now resolved
Addendum entered and electronically signed by Thanh Owen MD 01/25/24 14:52:
[id number]
Original Note:
Today's Communication/Plan
-
cont course of abx to complete 7 days
Desitin for perianal irritation
Low residue diet
Taper off Carafate, continue PPI
Follow PCP, GI outpatient
Follow BMP outpatient
Assessment / Plan
Assessment / Plan
Physical Exam
General: Conversant and Pain; No Fever or Chills
HEENT: NormoCephalic, Anicteric, Moist mucous membranes, PERRLA, Amo Conjunctivae and No Ptosis
Respiratory: Clear; No Wheezes, Rales or Rhonchi
Cardiac: S1/S2 and Regular Rhythm; No Murmur, Rub, Gallop or Peripheral Edema
Breast: Deferred by me
GI: Soft, Non Distended, Normal Bowel Sounds, Tender (lower quadrants - improved) and No Hepatosplenomegaly
Rectal: Deferred by Provider
Genito-urinary: Deferred by me
Musculoskeletal: No Clubbing, No Cyanosis and No Edema
Skin: Warm and Dry; No Rash
Neuro: AO x 3, No Motor Deficits, Nonfocal/grossly intact, Cranial Nerves Intact and No Sensory Deficits; No Slurred Speech, Facial Droop or Tremors
Psych: Calm
#Infectious proctocolitis
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
-Left-sided to sigmoiditis noted on CT scan, cannot rule out viral gastroenteritis.
-Status post robotic sigmoid colon resection October 23, [address] Granados
-Check stool studies , wbc , culture , ova parasite, norvirus ciff - negative
-Hold miralax daily
-IV NSS
tolerating LRD
-IV Levaquin, IV Flagyl - switch to po for additional 5 days to complete 7 day course
-Dilaudid as needed pain
-Gi consulted - f/u outpatient
-Carafate to BID, weaning off
-Okay to use Desitin for perianal irritation
-Barrier cream for rectal irritation. Patient does not feel like fissure discomfort.
#Multiple sclerosis hx - Relapsing form
Patient receives Ocrevus 600 mg IV every 6 months
-Continue Trileptal 600 mg p.o. 3 times daily takes for nerve pain to body
#HTN-benign
BP stable
-Continue metoprolol 25 mg daily
#Hyponatremia
-ctm
#Chronic neuropathy
-Continue baclofen 20 mg 3 times daily, Lyrica 50 mg p.o. 3 times daily
#GERD
-Continue sucralfate 1 g p.o. 4 times daily
#NSVT Hx
#CAD
#NSTEMI age 45
-aspirin, continue statin, beta-quoc
#Hypokalemia
-monitor and replete
#Insomnia
No reported meds
full code
More than 30 minutes spent in discharge including
Final examination of the patient
Summarizing hospital stay
Instructions for continuing care to all relevant caregivers
Preparation of discharge records, prescriptions, and referral forms
Total time spent (35 in minutes):
Anticipated Discharge: Today
Subjective/Interval History
-
Date of Service: January 24, 2024
Feeling better, tolerating diet
Objective Data
-
Labs:
Laboratory Results
01/24/24
07:22
WBC 8.7
Hgb 13.3
Hct 37.0 L
Plt Count 222
Sodium 133 L
Potassium 3.7
Chloride 105
Carbon Dioxide 24
BUN 9
Creatinine 0.6 L
Glucose 102 H
Calcium 8.6
Total Bilirubin 0.3
AST 19
ALT 18
Alkaline Phosphatase 79
Vital Signs:
Vital Signs
Temp Pulse Resp BP Pulse Ox
97.4 F 58 16 124/71 94
01/24/24 07:50 01/24/24 08:11 01/24/24 07:50 01/24/24 08:11 01/24/24 07:50
I&O
01/23/24 01/24/24 01/25/24
06:59 06:59 06:59
Intake Total 1940 / 1940 2360 / 2360
Output Total 400 / 400
Balance 1540 / 1540 2360 / 2360
Review of Systems
-
History Source: Patient
All other systems: Not reviewed unless documented
Data Reviewed
-
Diagnostic Radiology: Image personally visualized and interpreted and Report Reviewed by me
CT Scan: Image personally visualized and interpreted and Report Reviewed by me
Labs: Labs Reviewed by me
--- NOTE | 2024-01-24 11:37 | CM ---
Per MD, patient has been medically cleared for discharge to home with no additional skilled services. Patient's will transport home.
--- NOTE | 2024-01-24 11:44 | W.DS.TRANS ---
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
-
Discharge Instructions:
Discharge Diagnosis/Procedures Diarrhea, with CT findings of mild colitis of
descending, sigmoid and rectum
Diet Low Residue,Low Fat,Low Cholesterol
Activity As tolerated
Blood Work bmp in 1 week with pcp
Instructions:
Stand-Alone Forms:
Changes to Home Medications: Yes
Discharge Medications:
DC Medications w/original date entered in [employer]
baclofen 20 mg tablet 20 mg PO TID Muscle Spasms 12/03/22
ocrelizumab 30 mg/mL intravenous solution (Ocrevus) 600 mg IV [id number] MULTI SCLEROSIS 12/03/22
oxcarbazepine 600 mg tablet 600 mg PO TID Seizures 12/03/22
aspirin 81 mg chewable tablet 81 mg PO DAILY #1 tab 12/05/22
atorvastatin 80 mg tablet 80 mg PO QPM #90 tabs 12/05/22
metoprolol succinate 25 mg tablet,extended release 24 hr 25 mg PO DAILY #90 tabs 12/05/22
pregabalin 50 mg capsule 50 mg PO TID #240 caps 12/05/22
pantoprazole 40 mg tablet,delayed release (Protonix) 80 mg (2 x 40 mg) PO DAILY #60 tabs 01/18/24
sucralfate 1 gram tablet (Carafate) 1 g PO BID #60 tabs 01/18/24
Miralax 17 g PO DAILY Constipation 01/21/24
levofloxacin 750 mg tablet 750 mg PO DAILY 5 days #5 tabs 01/24/24
metronidazole 500 mg tablet 500 mg PO Q8H 5 days #15 tabs 01/24/24
Home Medication Changes
levofloxacin 750 mg tablet 750 mg PO DAILY 5 days #5 tabs 01/24/24
metronidazole 500 mg tablet 500 mg PO Q8H 5 days #15 tabs 01/24/24
Pending Results: No
[2024-01-24 13:19] VITALS: BP 112/72
== END 2024-01-24 13:51 | disposition home or self-care (01) | DRG 872 ==
LOC: 2 NORTH 21:34
PROVIDERS: Clinical Nurse Specialist Family Health; ADMITTING PHYSICIAN Hospitalist; ATTENDING PHYSICIAN Internal Medicine; CONSULT PHYSICIAN Internal Medicine Gastroenterology; EMERGENCY PHYSICIAN Emergency Medicine; FAMILY PHYSICIAN Family Medicine
DX: A41.9 Sepsis, unspecified organism (principal); A09 Infectious gastroenteritis and colitis, unspecified; E87.1 Hypo-osmolality and hyponatremia; F17.200 Nicotine dependence, unspecified, uncomplicated; G35 Multiple sclerosis; Z79.82 Long term (current) use of aspirin; I10 Essential (primary) hypertension; K21.9 Gastro-esophageal reflux disease without esophagitis; I25.10 Atherosclerotic heart disease of native coronary artery without angina pectoris; E87.6 Hypokalemia; G47.00 Insomnia, unspecified
CPT/HCPCS: 74022; 74177; 80053; 83690; 85025; 87045; 87046; 87324; 87328; 87329; 87427; 87449; 87798; 89055; 96365; 96367; 97116; 97162; 97166; 99285; Q9967

== ENCOUNTER 2024-02-12 11:45 | Emergency (ER) | payer BC, MEDICARE, SELFPAY ==
[2024-02-12 11:51] VITALS: BP 122/82
--- NOTE | 2024-02-12 12:58 | ED.GENMED ---
History of Present Illness
General
Chief Complaint: Rectal Bleeding
Source: patient
Time Seen by Provider: 02/12/24 12:46
Travel History
Have you had any contact with someone who has COVID-19?: No
Do you have any symptoms of coronavirus? Fever > 100 degrees, chills, cough, shortness of breath, sore throat, loss of taste or smell, muscle aches, or headache?: No
History of Present Illness
History of Present Illness:
58-year-old male with past medical history of rectal cancer status post bowel resection (currently not undergoing any treatments), MS, CAD, hypertension, hyperlipidemia, previous SD with stent presenting to the emergency department for evaluation of
abdominal/rectal pain that started earlier today stating he had been having some discomfort earlier in the week similar to when he was previously admitted here for colitis, had been having some loose stool and some intermittent bright red blood
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
pain and noticed a couple drops of blood. Patient states pain is still an 8 out of 10 despite multiple bowel movements since the initial onset. He states this feels exactly similar to when he needed he admitted the last time. He denies any
fevers, chills, rigors, nausea, vomiting. No other concerns.
Past History
Past History
ED Past Medical History: Asthma (COPD), CAD, GERD, HTN, SD, Other (Cardiomyopathy with preserved LVF, osteopenia, diverticulosis, Bronchiolitis, MS, Pneumonia) and Other (questionable distant history of Lyme disease)
ED Past Surgical History: Appendectomy and Bowel resection
Social History
Tobacco: Smoker
Alcohol: Occasional
Drug: None
Personal:
Living: with family
Employment: Employed
Family History
Family History: Early CAD
Review of Systems
Review of Systems
All Other Systems: ROS reviewed and negative except as documented in HPI and ROS
Phy Exam
Physical Exam
Physical Exam:
GENERAL: Alert , appears to be having colicky type pain as he will intermittently not appear in pain but then for a few seconds start to grab onto the lower part of his abdomen
EYE: Clear conjunctiva
NECK: Supple
ENT: o/p clr, mmm.
CARDIAC: Regular rate and rhythm, no murmur .
LUNGS: Clear breath sounds bilaterally, no acute respiratory distress, no wheezes/rales/rhonchi
ABDOMEN: Soft, diffusely tender, no r/g, no cvat
NEUROLOGICAL: Alert and oriented
SKIN: Warm and dry, skin intact.
MUSCULOSKELETAL: well perfused.
PSYCH: Normal and appropriate interaction.
Scores
Heart Failure Risk
Heart Failure Risk Score: Not Applicable
Heart Score for Chest Pain Patients
STEMI patient?: Not applicable
Withdrawal Assessment of Alcohol
Withdrawal Assessment Completed?: Not applicable
Course
Orders/Labs/Results
Orders:
Orders
02/12/24 12:57
CT Abd/pel W Iv And Oral Contr Urgent
Comment:
Reason For Exam: hx rectal cancer, worsening abdominal pain
Iohexol [Omnipaque] See Protocol PO NOW STA
02/12/24 12:58
HYDROmorphone [Dilaudid] 1 mg IV NOW STA
02/12/24 13:08
Complete Blood Count/With Diff Urgent
Comprehensive Metabolic Panel Urgent
Lipase Urgent
02/12/24 13:21
STOOL [C difficile Antigen & Toxins] Urgent
RENATA Source: Feces/Stool
Specimen Description:
Date Specimen was Collected: 02/12/24
Time Specimen was Collected: 13:20
Stool Culture Urgent
RENATA Source: Feces/Stool
Specimen Description:
Date Specimen was Collected: 02/12/24
Time Specimen was Collected: 13:20
02/12/24 17:18
Oxycodone/Acetaminophen [Percocet 5/325] 1 tablet PO NOW STA
Abnormal Lab Results
02/12/24
13:08
WBC 11.3 H 10^3/uL
(4.8-10.8)
MPV 11.6 H fL
(7.4-10.4)
Abs Immat Gran (auto) 0.1 H 10^3/uL
(0-0.05)
Absolute Neuts (auto) 8.3 H 10^3/uL
(1.4-6.5)
Absolute Monos (auto) 1.0 H 10^3/uL
(0.1-0.6)
Lymphocytes % 13.9 L %
(20.5-51.1)
Creatinine 0.6 L mg/dL
(0.7-1.3)
Total Protein 5.8 L g/dl
(6.3-8.2)
02/12/24 13:08
02/12/24 13:08
Vital Signs
Initial and Last Documented VS:
Initial Vital Signs
Temp Pulse Resp BP Pulse Ox
98.4 F 74 18 122/82 95
02/12/24 11:51 02/12/24 11:51 02/12/24 11:51 02/12/24 11:51 02/12/24 11:51
Last Documented Vital Signs
Temp Pulse Resp BP Pulse Ox
98.9 F 55 18 149/83 97
02/12/24 14:36 02/12/24 17:36 02/12/24 14:36 02/12/24 17:36 02/12/24 17:36
MDM/Problems Addressed
Differential Diagnosis Includes:
Colitis, diverticulitis, recurring malignancy
MDM/Problems Addressed:
58-year-old male presenting to the emergency department for evaluation of worsening lower abdominal pain, feels similar to when he was admitted proctocolitis around a month ago. No fevers. Patient states that his stool is loose, minimal bleeding,
doubt upper GI bleed. Given patient's history will obtain CT scan to further evaluate. Labs ordered. Dilaudid for pain control as patient notes relief with this in the past.
Chronic conditions affecting care: Cancer
*Radiology
Radiology exam reviewed: radiology read reviewed
*Pulse Oximetry
Patient hypoxic: no
*Critical Care Note
Total Time (30-74mins, 75-104mins- exclusive of procedures): Not Applicable
Data Reviewed
Review of Other/Old Records Reveals: Labs, Records and Radiology Studies
Source: patient and records
Patient Management
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
Escalation/DeEscalation of care consider admission/obs:
Patient CT shows mild proctocolitis which is unchanged since previous. Patient is without fever, leukocytosis is only slightly elevated but without any leftward shift. At this time I suspect this is more inflammatory as opposed to infectious. I
notified patient's GI and colorectal team who would like to follow-up with patient on an outpatient basis. Prescription for dicyclomine and Percocet sent to pharmacy. Patient is aware of return precautions to ER but otherwise stable for discharge
home
ED Attending Note
-
Portions of this chart may have been created with voice recognition software.� Occasional wrong word or��sound alike� substitutions may have occurred due to the inherent limitations of voice recognition software.
Discharge Plan
Departure
Patient Disposition: Home (Routine Discharge)
Date of Disposition: 02/12/24
Time of Disposition: 17:12
Patient with high blood pressure during this ER visit?: No
Discharge Problem:
Proctocolitis
Instructions: Proctitis
Prescriptions:
New
oxycodone-acetaminophen [Percocet] 5-325 mg tablet
1 tab PO Q6HPRN PRN (Reason: pain) Qty: 8 0RF
dicyclomine 20 mg tablet
20 mg PO TID Qty: 10 0RF
No Action
baclofen 20 mg tablet
20 mg PO TID
oxcarbazepine 600 mg tablet
600 mg PO TID
Ocrevus 30 mg/mL Solution
600 mg IV [id number]
pantoprazole [Protonix] 40 mg tablet,delayed release (DR/EC)
40 mg PO DAILY
aspirin 81 mg tablet,chewable
81 mg PO QPM
metoprolol succinate 25 mg tablet extended release 24 hr
25 mg PO QPM
pregabalin 50 mg capsule
50 mg PO TID
atorvastatin 80 mg tablet
80 mg PO QPM
Referrals:
Edison Granados MD [Active] - (Call tomorrow for an appointment time)
Joaquin Duong DO [Family Provider] -
Interventions
Interventions:
*Risk Screen - Suicide Last Done: 02/12/24 12:03
*General Assessment Last Done: 02/12/24 12:03
*Neglect/Abuse Screening Last Done: 02/12/24 12:03
ED- Fall Risk Assessment Last Done: 02/12/24 12:03
*ED COVID-19 Vaccine History Last Done: 02/12/24 12:03
*Nursing Disposition Last Done: 02/12/24 17:37
WI-Qstovz-Misjrkmeiz Assessment Last Done: 02/12/24 12:03
ED- Cardiac Assessment Last Done: 02/12/24 12:03
ED- Pulmonary Assessment Last Done: 02/12/24 12:03
Discharge Date and Time
Discharge Date/Time: 02/12/24 17:38
Print Language: ARMENIAN
[2024-02-12] MEDS: OMNIPAQUE 50 ML PO (13:00)
[2024-02-12] MEDS: DILAUDID 1 MG IV (13:18)
[2024-02-12 13:21] LABS: % Basophils 0.6 % (0-2); % Eosinophils 2.8 % (0-6); % Immature Granulocytes 0.4 % (0-0.5); % Lymphocytes 13.9 % (20.5-51.1); % Monocytes 8.9 % (1.7-9.3); % Neutrophils 73.4 % (42.2-75.2); Absolute Basophils 0.1 10^3/uL (0-0.2); Absolute Eosinophils 0.3 10^3/uL (0-0.7); Absolute Immature Granulocytes 0.1 10^3/uL (0-0.05); Absolute Lymphocytes 1.6 10^3/uL (1.2-3.4); Absolute Neutrophils 8.3 10^3/uL (1.4-6.5); Hemoglobin 14.7 g/dL (13.0-18.0); Mean Corpuscular Hgb 30.2 pg (27.0-31.0); Mean Corpuscular Volume 86.2 fL (80.0-94.0); Mean Platelet Volume 11.6 fL (7.4-10.4); Nucleated Red Blood Cells % 0 % (-); Platelet Count 241 10^3/uL (130-400); Red Blood Cell Count 4.87 10^6/uL (4.70-6.10); Red Cell Dist. Width 12.7 % (11.5-14.5); White Blood Cell Count 11.3 10^3/uL (4.8-10.8)
[2024-02-12 13:44] LABS: ALT (SGPT) 17 U/L (0-50); AST (SGOT) 17 U/L (17-59); Albumin 3.8 g/dl (3.5-5.0); Alkaline Phosphatase 92 U/L (38-126); Blood Urea Nitrogen 12 mg/dl (9-20); Calcium 8.7 mg/dl (8.4-10.2); Carbon Dioxide 28 mmol/L (22-30); Chloride 104 mmol/L (98-107); Glucose 93 mg/dl (70-99); Lipase 72 U/L (23-300); Potassium 3.7 mmol/L (3.5-5.1); Sodium 139 mmol/L (135-145); Total Bilirubin 0.4 mg/dl (0.2-1.3); Total Protein 5.8 g/dl (6.3-8.2); eGFR > 60.00
[2024-02-12 14:36] VITALS: BP 118/69
[2024-02-12] MEDS: PERCOCET 5/325 1 TABLET PO (17:21)
[2024-02-12 17:36] VITALS: BP 149/83
== END 2024-02-12 17:38 | disposition home or self-care (01) ==
LOC: EMR 11:45
PROVIDERS: Physician Assistant Medical; EMERGENCY PHYSICIAN Emergency Medicine; FAMILY PHYSICIAN Family Medicine
DX: K51.20 Ulcerative (chronic) proctitis without complications (principal); I25.10 Atherosclerotic heart disease of native coronary artery without angina pectoris; I10 Essential (primary) hypertension; E78.5 Hyperlipidemia, unspecified; I25.2 Old myocardial infarction; F17.200 Nicotine dependence, unspecified, uncomplicated
CPT/HCPCS: 99285; 96374; 74177; 80053; 83690; 85025; 87045; 87046; 87324; 87427; 87449; Q9967

== ENCOUNTER → 2024-02-20 06:32 | Day surgery (SDC) | payer BC, MEDICARE, SELFPAY | LOC: GI 06:32 | PROVIDERS: ATTENDING PHYSICIAN Internal Medicine Gastroenterology; FAMILY PHYSICIAN Family Medicine | DX: K63.89 Other specified diseases of intestine (principal); K57.30 Diverticulosis of large intestine without perforation or abscess without bleeding; K64.0 First degree hemorrhoids; K62.89 Other specified diseases of anus and rectum; R19.7 Diarrhea, unspecified; R93.3 Abnormal findings on diagnostic imaging of other parts of digestive tract; Z98.0 Intestinal bypass and anastomosis status | CPT/HCPCS: 45380; 88305 ==

== ENCOUNTER → 2024-06-01 14:21 | Outpatient (REF) | payer BC, MEDICARE, SELFPAY | LOC: MRI 3T 14:21 | PROVIDERS: ATTENDING PHYSICIAN Psychiatry & Neurology Neurology; FAMILY PHYSICIAN Family Medicine | DX: G35 Multiple sclerosis (principal) | CPT/HCPCS: 72157; A9575 ==

== ENCOUNTER → 2024-06-03 12:04 | Outpatient (REF) | payer BC, MEDICARE, SELFPAY | LOC: MRI 3T 12:04 | PROVIDERS: ATTENDING PHYSICIAN Psychiatry & Neurology Neurology; FAMILY PHYSICIAN Family Medicine | DX: G35 Multiple sclerosis (principal) | CPT/HCPCS: 70553; 72156; A9575 ==

== ENCOUNTER 2024-07-20 08:29 | Outpatient (RCR) | payer BC, MEDICARE, SELFPAY ==
[2024-07-20] VITALS (11 sets, daily range): BP systolic 100–126; BP diastolic 63–79
[2024-07-20] MEDS: NSS 500 IV (08:54)
[2024-07-20 08:56] LABS: % Basophils 0.6 % (0-2); % Eosinophils 5.9 % (0-6); % Immature Granulocytes 0.2 % (0-0.5); % Monocytes 9.7 % (1.7-9.3); % Neutrophils 57.6 % (42.2-75.2); Absolute Basophils 0.1 10^3/uL (0-0.2); Absolute Eosinophils 0.6 10^3/uL (0-0.7); Absolute Lymphocytes 2.4 10^3/uL (1.2-3.4); Absolute Monocytes 0.9 10^3/uL (0.1-0.6); Absolute Neutrophils 5.3 10^3/uL (1.4-6.5); Hematocrit 43.9 % (39.0-52.0); Hemoglobin 15.5 g/dL (13.0-18.0); Mean Corp Hgb Conc. 35.3 g/dL (33.0-37.0); Mean Corpuscular Hgb 30.5 pg (27.0-31.0); Mean Corpuscular Volume 86.4 fL (80.0-94.0); Mean Platelet Volume 11.8 fL (7.4-10.4); Platelet Count 232 10^3/uL (130-400); Red Blood Cell Count 5.08 10^6/uL (4.70-6.10); White Blood Cell Count 9.3 10^3/uL (4.8-10.8)
[2024-07-20] MEDS: SOLU-MEDROL PF 51.6 MG IV (08:56)
[2024-07-20] MEDS: BENADRYL 51 MG IV (09:21)
[2024-07-20] MEDS: TYLENOL 650 MG PO (09:36)
[2024-07-20] MEDS: OCREVUS 520 MG IV (10:00)
== END 2024-07-21 08:21 | disposition home or self-care (01) ==
LOC: OID 08:29
PROVIDERS: ATTENDING PHYSICIAN Psychiatry & Neurology Neurology; FAMILY PHYSICIAN Family Medicine
DX: G35 Multiple sclerosis (principal)
CPT/HCPCS: 85025; 96361; 96367; 96413; 96415; J2350

== ENCOUNTER 2024-09-08 20:36 | Inpatient (IN) | payer BC, MEDICARE, SELFPAY ==
[2024-09-08 15:23] VITALS: BP 116/80
[2024-09-08 15:54] LABS: Urine Albumin Trace (Neg - Trace); Urine Bilirubin 1+ (Negative); Urine Character Clear (Clear); Urine Color Yellow; Urine Glucose Negative (Negative); Urine Ketone Negative (Negative); Urine Leukocyte Trace (Negative); Urine Nitrite Negative (Negative); Urine Occult Blood Negative (Negative); Urine Urobilinogen Negative (Neg - 1+)
[2024-09-08 15:56] LABS: % Eosinophils 7.4 % (0-6); % Immature Granulocytes 0.3 % (0-0.5); % Lymphocytes 32.3 % (20.5-51.1); % Monocytes 10.6 % (1.7-9.3); % Neutrophils 48.4 % (42.2-75.2); Absolute Basophils 0.1 10^3/uL (0-0.2); Absolute Eosinophils 0.5 10^3/uL (0-0.7); Absolute Lymphocytes 2.3 10^3/uL (1.2-3.4); Absolute Monocytes 0.8 10^3/uL (0.1-0.6); Absolute Neutrophils 3.5 10^3/uL (1.4-6.5); Hematocrit 45.5 % (39.0-52.0); Hemoglobin 15.4 g/dL (13.0-18.0); Mean Corp Hgb Conc. 33.8 g/dL (33.0-37.0); Mean Corpuscular Hgb 30.1 pg (27.0-31.0); Mean Platelet Volume 11.9 fL (7.4-10.4); Nucleated Red Blood Cells % 0 % (-); Platelet Count 255 10^3/uL (130-400); Red Blood Cell Count 5.11 10^6/uL (4.70-6.10); Red Cell Dist. Width 13.2 % (11.5-14.5); White Blood Cell Count 7.2 10^3/uL (4.8-10.8)
[2024-09-08 16:14] LABS: ALT (SGPT) 22 U/L (0-50); AST (SGOT) 20 U/L (17-59); Albumin 4.2 g/dl (3.5-5.0); Alkaline Phosphatase 98 U/L (38-126); Blood Urea Nitrogen 11 mg/dl (9-20); Calcium 9.1 mg/dl (8.4-10.2); Carbon Dioxide 25 mmol/L (22-30); Chloride 104 mmol/L (98-107); Glucose 88 mg/dl (70-99); Potassium 4.4 mmol/L (3.5-5.1); Sodium 138 mmol/L (135-145); Total Bilirubin 0.3 mg/dl (0.2-1.3); Total Protein 6.1 g/dl (6.3-8.2); eGFR > 60.00
[2024-09-08 16:22] LABS: Urine Bacteria Few (Negative); Urine Mucus Many; Urine Red Blood Cell 0-2 /HPF (0-2)
[2024-09-08 16:23] LABS: Urine White Cell 0-2 /HPF (0-5)
--- NOTE | 2024-09-08 19:06 | ED.GENMED ---
History of Present Illness
General
Chief Complaint: Weakness
Time Seen by Provider: 09/08/24 18:05
History of Present Illness
History of Present Illness:
59-year-old male with history of MS on Ocrevus, CAD, history of colon cancer, GERD, COPD presenting to the emergency department for concern of MS flare. Patient reports for the past 3 days he has been feeling weakness to his left upper extremity
and left lower extremity. Also reports intermittent double vision. He feels like his speech is slowed, has had increased difficulty drinking. His symptoms feel very consistent with his MS. He called his neurologist who advised that he come to
the hospital for further evaluation and admission for steroids. He denies chest pain or difficulty breathing. He denies abdominal pain. He reports that his last flare was about 4 years ago. He denies additional acute medical complaints.
Past History
Past History
ED Past Medical History: Asthma (COPD), CAD, GERD, HTN, [place], Other (Cardiomyopathy with preserved LVF, osteopenia, diverticulosis, Bronchiolitis, MS, Pneumonia) and Other (questionable distant history of Lyme disease)
ED Past Surgical History: Appendectomy and Bowel resection
Social History
Tobacco: Smoker
Alcohol: Occasional
Drug: None
Personal:
Living: with family
Employment: Employed
Family History
Family History: Early CAD
Phy Exam
Physical Exam
Physical Exam:
General: Well-appearing, no clinical signs of dehydration, nontoxic and in no acute distress
HEENT: protecting airway
Neck: appears supple
CV: Normal heart rate, regular rhythm
Resp: No accessory muscle use, no increased work of breathing, lungs clear to auscultation bilaterally
Abd: Soft and non-distended, no tenderness to palpation
Extremities: No deformities, no swelling, no erythema, pulses and sensation intact
Neuro: alert, 4/5 strength to left upper and lower extremity. Normal. Sensation intact.
: deferred
Rectal: deferred
Psych: Normal affect
Skin: Intact
Course
Orders/Labs/Results
Orders:
Orders
09/08/24 15:33
Complete Blood Count/With Diff Urgent
Comprehensive Metabolic Panel Urgent
09/08/24 15:44
UA Reflex to Culture [Urinalysis Reflex To Culture] Urgent
Date Specimen was Collected: 09/08/24
Time Specimen was Collected: 15:26
Urine Microscopic Reflex Cult Urgent
09/08/24 17:14
MR Brain W/o & With Contrast Routine
Comment:
Reason For Exam: diplopia, left hemiparesis
OK for patient to be off Cardiac Monitoring for MRI: No
Recent pill cam endoscopy?: No
Abnormal Lab Results
09/08/24 09/08/24
15:33 15:44
MPV 11.9 H fL
(7.4-10.4)
Absolute Monos (auto) 0.8 H 10^3/uL
(0.1-0.6)
Monocytes % 10.6 H %
(1.7-9.3)
Eosinophils % 7.4 H %
(0-6)
Creatinine 0.6 L mg/dL
(0.7-1.3)
Total Protein 6.1 L g/dl
(6.3-8.2)
Urine Bilirubin 1+ A
(Negative)
Leukocyte Esterase Rfl Trace A
(Negative)
Urine Bacteria (Reflex) Few A
(Negative)
09/08/24 15:33
09/08/24 15:33
Vital Signs
Initial and Last Documented VS:
Initial Vital Signs
Temp Pulse Resp BP Pulse Ox
98.1 F 66 20 116/80 95
09/08/24 15:23 09/08/24 15:23 09/08/24 15:23 09/08/24 15:23 09/08/24 15:23
Last Documented Vital Signs
Temp Pulse Resp BP Pulse Ox
98.1 F 66 20 116/80 95
09/08/24 15:23 09/08/24 15:23 09/08/24 15:23 09/08/24 15:23 09/08/24 15:23
MDM/Problems Addressed
MDM/Problems Addressed:
59-year-old male with history of MS presenting for concern of MS flare. Vital signs on arrival are normal.
On exam, patient is resting comfortably, no acute distress. He does have appreciated weakness to the left upper and lower extremity. Reports that his vision has since improved, however waxes and wanes. Patient had laboratory analysis prior to my
assessment, unremarkable. Neurology already aware patient on his arrival, MRI ordered. Discussed with neurology, no indication for CT imaging at this time. Recommending steroids. Will start patient on Solu-Medrol with plan for admission.
*Critical Care Note
Total Time (30-74mins, 75-104mins- exclusive of procedures): Not Applicable
ED Attending Note
-
Portions of this chart may have been created with voice recognition software.� Occasional wrong word or��sound alike� substitutions may have occurred due to the inherent limitations of voice recognition software.
Discharge Plan
Departure
Prescriptions:
No Action
baclofen 20 mg tablet
20 mg PO TID
oxcarbazepine 600 mg tablet
600 mg PO TID
Ocrevus 30 mg/mL Solution
600 mg IV [id number]
dicyclomine 20 mg tablet
20 mg PO TID PRN (Reason: cramping)
pantoprazole [Protonix] 40 mg tablet,delayed release (DR/EC)
40 mg PO DAILY PRN (Reason: Gastrointestinal Issue)
aspirin 81 mg tablet,chewable
81 mg PO QPM
metoprolol succinate 25 mg tablet extended release 24 hr
25 mg PO QPM
pregabalin 50 mg capsule
50 mg PO TID
atorvastatin 80 mg tablet
80 mg PO QPM
Referrals:
Joaquin Duong, [Family Provider] -
Interventions
Interventions:
*Risk Screen - Suicide Last Done: 09/08/24 15:23
*General Assessment Last Done: 09/08/24 15:23
*Neglect/Abuse Screening Last Done: 09/08/24 15:23
Discharge Date and Time
Print Language: GERMAN
--- NOTE | 2024-09-08 19:50 | HPS.HSE ---
Family Physician
-
Family Physician: Joaquin Duong
Chief Complaint
-
Left-sided weakness
History of Present Illness
This is a 59-year-old who has a past medical history significant for multiple sclerosis, COPD, CAD status post [place], history of colon cancer s/p resection, cardiomyopathy with preserved EF presenting to the emergency department with approximately 3
days of neurological symptoms including double vision intermittently as well as a left-sided weakness.
Patient reports that he has been taking Ocrevus for over 4 years now and his last MS exacerbation was about 4 years ago. 3 days ago he reported having difficulty with ambulation. He reports an unsteady gait as do his on the board. Noted weakness
in his left lower extremity as well as knees left upper extremity. Started having intermittent double vision and then some blurry vision as well. Patient denies any recent antecedent illnesses. He denies dysuria, incontinence or frequency. He
denies any flank pain. He denies fevers or chills. He denies any cough, dyspnea, shortness of breath, nausea vomiting or diarrhea. No known sick contacts. No new medication changes. He denies slurred speech currently. Reported symptoms to his
neurologist and was sent into the ED for evaluation and initiation of treatment for MS exacerbation.
In the ED was hemodynamic stable with a blood pressure 116/80 pulse of 60. He was afebrile and satting 98% on room air. CBC was unremarkable. Renal function and electrolytes are within normal limits. LFTs were normal. UA was unremarkable.
Medical History
Past Medical History
Past Medical History: Reports Asthma, CAD, Cancer (Colon cancer), COPD, GERD, HTN and [place]
Additional Past Medical History:
Multiple sclerosis
Past Surgical History: Reports Appendectomy and Bowel Resection
Social History
Tobacco: Smoker
Alcohol: Occasional
Drug: None
Personal:
Living: With Family
Employment: Employed
Family History
Family History: Not pertinent
Allergies / Home Medications
Allergies reflects when Allergies were last updated in [facility].
Home Medications with original date entered in [facility]
Allergy/Medication List:
Allergies
Allergy/AdvReac Type Severity Reaction Status Date / Time
amoxicillin Allergy Hives Verified 07/20/24 09:01
azithromycin [From Zithromax] Allergy Hives Verified 07/20/24 09:01
ceftriaxone sodium Allergy Hives Verified 07/20/24 09:01
[From Rocephin]
Penicillins Allergy Hives Verified 07/20/24 09:01
Home Medications
baclofen 20 mg tablet 20 mg PO TID Muscle Spasms 12/03/22
ocrelizumab 30 mg/mL intravenous solution (Ocrevus) 600 mg IV [id number] MULTI SCLEROSIS 12/03/22
oxcarbazepine 600 mg tablet 600 mg PO TID Seizures 12/03/22
aspirin 81 mg chewable tablet 81 mg PO QPM Blood Clot Prevention/Tx 02/12/24
atorvastatin 80 mg tablet 80 mg PO QPM High Cholesterol 02/12/24
metoprolol succinate 25 mg tablet,extended release 24 hr 25 mg PO QPM Blood Pressure 02/12/24
pregabalin 100 mg capsule 100 mg PO TID 09/08/24
therapeutic multivitamin 1 tab PO QPM 09/08/24
Review of Systems
-
Constitutional: Reports No Symptoms
EENT: Reports Other (Double vision)
Respiratory: Reports No Symptoms
Cardiac: Reports No Symptoms
Abdomen/GI: Reports No Symptoms
: Reports No Symptoms
Skin: Reports No Symptoms
Neurological: Reports Weakness
Endocrine: Reports No Symptoms
Hematologic/Lymphatic: Reports No Symptoms
Psych: Reports No Symptoms
Physical Exam
Vital Signs
Vital Signs
Temp Pulse Resp BP Pulse Ox
98.1 F 66 20 116/80 95
09/08/24 15:23 09/08/24 15:23 09/08/24 15:23 09/08/24 15:23 09/08/24 15:23
Physical Exam
General: Well Developed, Well Nourished, No Apparent Distress and Comfortable
HEENT: NormoCephalic, Anicteric, Moist mucous membranes, Atraumatic, PERRLA, [place] Conjunctivae and Other
Respiratory: Clear
Cardiac: S1/S2 and Regular Rhythm
Breast: Deferred by me
GI: Soft, Non Tender, Non Distended and Normal Bowel Sounds
Rectal: Deferred by Provider
Genito-urinary: Deferred by me
Musculoskeletal: No Clubbing, No Cyanosis and No Edema
Skin: Warm
Neuro: AO x 3, Cranial Nerves Intact, No Sensory Deficits and Other (4/5 weakness in the Left upper extremity. [employer] Delivery strength preserved but finger extension weak. 4/5 weakness in LE )
Hematologic/Lymphatic: No Lymphadenopathy
Psych: Calm
Laboratory Results
-
09/08/24 15:33
09/08/24 15:33
Laboratory Results
Total Bilirubin 0.3 mg/dl (0.2-1.3) 09/08/24 15:33
AST 20 U/L (17-59) 09/08/24 15:33
ALT 22 U/L (0-50) 09/08/24 15:33
Alkaline Phosphatase 98 U/L (38-126) 09/08/24 15:33
Impression/Plan
-
IMPRESSION:
Patient with multiple comorbidities with had history of relapsing multiple sclerosis presents to the emergency department with 3 days of worsening left-sided weakness gait abnormality and intermittent double vision. His last MS failure was 4 years
ago. He has been maintained on Ocrevus at this time. No antecedent infectious process identifiable. Patient sent in by neuro for diagnosis and treatment of likely MS exacerbation.
PLAN:
1. Weakness - MS exacerbation suspected.
- admit to med/surg
- mri brain and c-spine pending
- 1 g solumedrol daily for 5 - 7 days
- gi prophylaxis
- neurology consult
2. CAD - patient w/o any cardiovascular symptoms.
- continue aspirin, statin
- continue beta blockade
DVT PPX - lovenox sq
Code Status - Full Code
[2024-09-08] MEDS: SOLU-MEDROL 258 MG IV (20:32)
[2024-09-08 21:58] VITALS: BP 151/94; BMI 39.9
[2024-09-08] MEDS: TRILEPTAL 600 MG PO (22:31)
[2024-09-08] MEDS: LIORESAL 20 MG PO (22:31)
[2024-09-08] MEDS: LIPITOR 80 MG PO (23:04)
[2024-09-08] MEDS: LYRICA 100 MG PO (23:04)
[2024-09-08] MEDS: LOW STRENGTH ASPIRIN 81 MG PO (23:12)
[2024-09-08 23:55] VITALS: BP 132/77
--- NOTE | 2024-09-09 01:47 | PTCARENOTE ---
Patient received from ED via stretcher. He ambulated to bed with A x 1. He continues with left sided weakness but states he feels improved since receiving steroid in ED. He denies diplopia at this time. He was oriented to room and
surroundings. See nursing assessment for physical findings. Patient offered rolling walker but declined. Ax1 to bathroom. VSS Call ramos in reach.
[2024-09-09 06:00] VITALS: BMI 27.1
[2024-09-09 07:26] LABS: Hematocrit 44.3 % (39.0-52.0); Hemoglobin 15.3 g/dL (13.0-18.0); Mean Corp Hgb Conc. 34.5 g/dL (33.0-37.0); Mean Corpuscular Hgb 30.4 pg (27.0-31.0); Mean Corpuscular Volume 88.1 fL (80.0-94.0); Mean Platelet Volume 12.1 fL (7.4-10.4); Platelet Count 263 10^3/uL (130-400); Red Blood Cell Count 5.03 10^6/uL (4.70-6.10); White Blood Cell Count 5.5 10^3/uL (4.8-10.8)
[2024-09-09 07:39] LABS: Blood Urea Nitrogen 12 mg/dl (9-20); Carbon Dioxide 22 mmol/L (22-30); Chloride 105 mmol/L (98-107); Estimated Creatinine Clearance > 125 ml/min; Glucose 130 mg/dl (70-99); Potassium 4.5 mmol/L (3.5-5.1); Sodium 136 mmol/L (135-145); eGFR > 60.00
[2024-09-09 07:51] VITALS: BP 115/65
[2024-09-09] MEDS: LIORESAL 20 MG PO ×3 (09:15→21:58)
[2024-09-09] MEDS: TRILEPTAL 600 MG PO ×3 (09:16→21:58)
[2024-09-09] MEDS: LYRICA 100 MG PO ×4 (09:16→21:58)
--- NOTE | 2024-09-09 11:17 | CON.NEURO ---
Consultation
Order
Date of Consultation: 09/09/24
Requesting Provider: Mora Rush MD
Reason for Consult: MS exacerbation.
Neurology Consultation Note.
HPI: This is a 59-year-old right-handed man who presented to [facility] on 09/08/2024 with diplopia. According to the patient he developed an intermittent binocular painless horizontal diplopia at distance several days ago. His
symptoms became constant prompting their evaluation. Mr. Adame recalls developing the same diplopia at the age of 28. He has had several recurrences requiring eyepatch and IV steroids in the past with the last being around 8 years ago. The
patient states that his diplopia has resolved following the first dose of IV steroids.
The patient endorses 7/10 burning and numbness in the right leg, which he describes as feeling 'on fire.' The patient reports that these symptoms began after missing two doses of his medications, including oxcarbazepine, pregabalin, and baclofen.
Current DMR�Ocrevus over the last 3-1/2-4 years.
Prior DMA: Betaseron
ER VS: 116/80, 66, afebrile.
EKG:not available
PDMP: Pregabalin 100 Mg�90 capsules filled in on 09/04/2024, 07/28/2024, 06/15/2024
Labs: Unremarkable CBC, metabolic panel, urinalysis
Brain MRI wo chris(06/03/2024)-Mild periventricular white matter disease in the brain which appears unchanged from 05/19/2023. 4 mm lesion in the right side of the medulla which is unchanged. Small bilateral subcortical white matter lesions which
appear unchanged. No MRI evidence for new white matter lesion or abnormal intracranial enhancement. Mild diffuse cerebral and cerebellar volume loss.
PMH: RRMS, colon CA, CAD, DLP, apical heart aneurysm
PSH: partial colectomy, appendectomy, PTCI,
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
FH: No family history of CHANGE RELEASE MANAGER demyelinating disease; FH of premature CAD
All: Ceftriaxone, azithromycin, penicillin,
ROS:Constitutional: Negative. Negative for chills, fever and unexpected weight change.
HENT: Negative for ear pain, hearing loss, tinnitus and trouble swallowing.
Eyes: Positive for intermittent diplopia,
Respiratory: Negative for cough, choking and shortness of breath.
Cardiovascular: Negative for chest pain, palpitations and leg swelling.
Gastrointestinal: Negative for abdominal pain and vomiting.
Endocrine: Negative. Negative for cold intolerance.
Genitourinary: Negative for dysuria, flank pain and urgency.
Musculoskeletal: Negative for back pain, gait problem, neck pain and neck stiffness.
Skin: Negative for rash.
Allergic/Immunologic: Negative. Negative for immunocompromised state.
Neurological: Positive for left-sided weakness, right leg paresthesias.
Psychiatric/Behavioral: Negative for behavioral problems, confusion and hallucinations.
General: Well developed. In no acute distress.
Cardio: Regular rate and rhythm without murmur. Extremities are without cyanosis or edema.
Neuro:
Mental Status: Alert, oriented to person, place, and date. Normal attention and recall. Good fund of knowledge. Follows complex requests across the midline. Comprehension, naming, and repetition intact. Immediate and delayed recall 3/3.
Cranial Nerves: . Pupils are equally round and reactive to light. EOMs full. Visual lara full to confrontation. No ptosis. No nystagmus. V1-V3 intact to light touch and pinprick bilaterally, symmetric. Face symmetric. Normal hearing AU.
The palate elevated well. SCMs and traps 5/5. Tongue midline. No dysarthria.
Motor: Left ataxic hemiparesis
Reflexes: 3+ throughout the upper extremities and knees. 2/2 in AJs. Plantar responses flexor bilaterally.
Sensory: Normal pinprick, vibration and JPS.
Coordination: Bilateral postural and action hand tremor.
Gait: deferred
Assessment and Plan:
I. Transient diplopia
II. RRMS
III. Cervical myelopathy
-Fall precautions
-Ophthalmology consult
-Please obtain CTA head
-Provide extra dose of Lyrica 100 mg
-Continue baclofen 20 mg 3 times daily, oxcarbazepine 600 mg 3 times daily, pregabalin 100 mg 3 times daily
-Please check ESR, CRP, vit D OH
-PT
-Brain MRI with gadolinium
-DVT prophylaxys
I personally reviewed all radiology and labs along with past medical records pertinent to current medical problems. Total time spent in patient care is 60 minutes.
Thank you for allowing us to participate in the care of this patient. We will continue to follow. Please do not hesitate to contact us with any questions or concerns.
Subjective/Objective
Subjective Data
Date of Service: September 09, 2024
Objective Data
Vital Signs
Temp Pulse Resp BP Pulse Ox
36.5 C 63 18 115/65 95
09/09/24 07:51 09/09/24 07:51 09/09/24 07:51 09/09/24 07:51 09/09/24 07:51
Lab Results
09/09/24 06:49
09/09/24 06:49
Sodium 136 mmol/L (135-145) 09/09/24 06:49
Potassium 4.5 mmol/L (3.5-5.1) 09/09/24 06:49
BUN 12 mg/dl (9-20) 09/09/24 06:49
Glucose 130 mg/dl (70-99) H 09/09/24 06:49
Calcium 9.0 mg/dl (8.4-10.2) 09/09/24 06:49
Patient Allergies
amoxicillin Allergy (Verified 07/20/24 09:01)
Hives
azithromycin [From Zithromax] Allergy (Verified 07/20/24 09:01)
Hives
ceftriaxone sodium [From Rocephin] Allergy (Verified 07/20/24 09:01)
Hives
Penicillins Allergy (Verified 07/20/24 09:01)
Hives
Medications
-
Active Medications
Generic Name Dose Route Start Last Admin
Trade Name Freq PRN Reason Stop Dose Admin
Acetaminophen 650 mg 09/08/24 21:53
Acetaminophen 325 Mg Tablet PO 10/06/24 21:52
Q4HPRN PRN
mild pain/MAN/temp> 100.4F
Al Hydrox/Mg Hydrox/Simethicone 30 ml 09/08/24 21:53
Mag/Al/Simethicone Suspension 30 Ml Cup PO 10/06/24 21:52
Q6HPRN PRN
Heartburn
Aspirin 81 mg 09/09/24 18:00
Aspirin 81 Mg Chewable Tablet PO 10/07/24 17:59
QPM BHAVANA
Atorvastatin Calcium 80 mg 09/09/24 18:00
Atorvastatin (Lipitor) 80 Mg Tablet PO 10/07/24 17:59
QPM BHAVANA
Baclofen 20 mg 09/08/24 22:00 09/09/24 09:15
Baclofen 20 Mg Tablet PO 10/06/24 21:59 20 mg
TID BHAVANA Administration
Bisacodyl 10 mg 09/08/24 21:53
Bisacodyl 10 Mg Rectal Suppository RECTAL 10/06/24 21:52
[id number] PRN
constipation
Enoxaparin Sodium 40 mg 09/09/24 18:00
Enoxaparin Sodium 40 Mg/0.4 Ml Syringe SC 10/07/24 17:59
QPM BHAVANA
Methylprednisolone Sodium 258 mls @ 258 mls/hr 09/09/24 20:00
Succinate 1,000 mg/ Sodium IV 09/16/24 19:59
Chloride Q24H BHAVANA
Metoprolol Succinate 25 mg 09/09/24 18:00
Metoprolol 25 Mg Extended Release Tablet PO 10/07/24 17:59
QPM BHAVANA
Multivitamins Therapeutic 1 tablet 09/09/24 18:00
Multivitamin Tablet PO 10/07/24 17:59
QPM BHAVANA
Ondansetron HCl 4 mg 09/08/24 21:53
Ondansetron 4 Mg/2 Ml Vial IV 10/06/24 21:52
Q6HPRN PRN
nausea and vomiting
Oxcarbazepine 600 mg 09/08/24 23:00 09/09/24 09:16
Oxcarbazepine 300 Mg Tablet PO 10/06/24 22:59 600 mg
TID BHAVANA Administration
Polyethylene Glycol 17 grams 09/08/24 21:53
Polyethylene Glycol Powder 17 Grams Packet PO 10/06/24 21:52
DAILYPRN PRN
constipation
Pregabalin 100 mg 09/08/24 22:00 09/09/24 09:16
Pregabalin 100 Mg Capsule PO 10/06/24 21:59 100 mg
TID BHAVANA Administration
Pregabalin 100 mg 09/09/24 11:14
Pregabalin 100 Mg Capsule PO 09/09/24 11:15
NOW STA
Senna/Docusate Sodium 1 tablet 09/08/24 21:53
Docusate W/Senna ([place]ootie-Colace) Tablet PO 10/06/24 21:52
BIDPRN PRN
constipation
Sodium Chloride 0 flush 09/08/24 23:00
Sodium Chloride 0.9% (Flush) Syringe IV 10/06/24 22:59
PER PROTOCOL BHAVANA
Home Medications
�Medication �Instructions �Recorded
baclofen 20 mg tablet 20 mg PO TID Muscle Spasms 12/03/22
ocrelizumab 30 mg/mL intravenous 600 mg IV [id number] MULTI SCLEROSIS 12/03/22
solution (Ocrevus)
oxcarbazepine 600 mg tablet 600 mg PO TID Seizures 12/03/22
aspirin 81 mg chewable tablet 81 mg PO QPM Blood Clot 02/12/24
Prevention/Tx
atorvastatin 80 mg tablet 80 mg PO QPM High Cholesterol 02/12/24
metoprolol succinate 25 mg 25 mg PO QPM Blood Pressure 02/12/24
tablet,extended release 24 hr
pregabalin 100 mg capsule 100 mg PO TID 09/08/24
therapeutic multivitamin 1 tab PO QPM 09/08/24
Vital Signs and Labs
-
Vital Signs and Labs:
Vital Signs
Temp Pulse Resp BP Pulse Ox
36.5 C 63 18 115/65 95
09/09/24 07:51 09/09/24 07:51 09/09/24 07:51 09/09/24 07:51 09/09/24 07:51
Lab Results
09/09/24 06:49
09/09/24 06:49
Sodium 136 mmol/L (135-145) 09/09/24 06:49
Potassium 4.5 mmol/L (3.5-5.1) 09/09/24 06:49
BUN 12 mg/dl (9-20) 09/09/24 06:49
Glucose 130 mg/dl (70-99) H 09/09/24 06:49
Calcium 9.0 mg/dl (8.4-10.2) 09/09/24 06:49
Medications
-
Medications:
Generic Name Dose Route Start Last Admin
Trade Name Freq PRN Reason Stop Dose Admin
Acetaminophen 650 mg 09/08/24 21:53
Acetaminophen 325 Mg Tablet PO 10/06/24 21:52
Q4HPRN PRN
mild pain/MAN/temp> 100.4F
Al Hydrox/Mg Hydrox/Simethicone 30 ml 09/08/24 21:53
Mag/Al/Simethicone Suspension 30 Ml Cup PO 10/06/24 21:52
Q6HPRN PRN
Heartburn
Aspirin 81 mg 09/09/24 18:00
Aspirin 81 Mg Chewable Tablet PO 10/07/24 17:59
QPM BHAVANA
Atorvastatin Calcium 80 mg 09/09/24 18:00
Atorvastatin (Lipitor) 80 Mg Tablet PO 10/07/24 17:59
QPM BHAVANA
Baclofen 20 mg 09/08/24 22:00 09/09/24 09:15
Baclofen 20 Mg Tablet PO 10/06/24 21:59 20 mg
TID BHAVANA Administration
Bisacodyl 10 mg 09/08/24 21:53
Bisacodyl 10 Mg Rectal Suppository RECTAL 10/06/24 21:52
[id number] PRN
constipation
Enoxaparin Sodium 40 mg 09/09/24 18:00
Enoxaparin Sodium 40 Mg/0.4 Ml Syringe SC 10/07/24 17:59
QPM BHAVANA
Methylprednisolone Sodium 258 mls @ 258 mls/hr 09/09/24 20:00
Succinate 1,000 mg/ Sodium IV 09/16/24 19:59
Chloride Q24H BHAVANA
Metoprolol Succinate 25 mg 09/09/24 18:00
Metoprolol 25 Mg Extended Release Tablet PO 10/07/24 17:59
QPM BHAVANA
Multivitamins Therapeutic 1 tablet 09/09/24 18:00
Multivitamin Tablet PO 10/07/24 17:59
QPM BHAVANA
Ondansetron HCl 4 mg 09/08/24 21:53
Ondansetron 4 Mg/2 Ml Vial IV 10/06/24 21:52
Q6HPRN PRN
nausea and vomiting
Oxcarbazepine 600 mg 09/08/24 23:00 09/09/24 09:16
Oxcarbazepine 300 Mg Tablet PO 10/06/24 22:59 600 mg
TID BHAVANA Administration
Polyethylene Glycol 17 grams 09/08/24 21:53
Polyethylene Glycol Powder 17 Grams Packet PO 10/06/24 21:52
DAILYPRN PRN
constipation
Pregabalin 100 mg 09/08/24 22:00 09/09/24 09:16
Pregabalin 100 Mg Capsule PO 10/06/24 21:59 100 mg
TID BHAVANA Administration
Senna/Docusate Sodium 1 tablet 09/08/24 21:53
Docusate W/Senna ([place]-Colace) Tablet PO 10/06/24 21:52
BIDPRN PRN
constipation
Sodium Chloride 0 flush 09/08/24 23:00
Sodium Chloride 0.9% (Flush) Syringe IV 10/06/24 22:59
PER PROTOCOL BHAVANA
Home Medications
-
Home Medications
baclofen 20 mg tablet 20 mg PO TID Muscle Spasms 12/03/22
ocrelizumab 30 mg/mL intravenous solution (Ocrevus) 600 mg IV [id number] MULTI SCLEROSIS 12/03/22
oxcarbazepine 600 mg tablet 600 mg PO TID Seizures 12/03/22
aspirin 81 mg chewable tablet 81 mg PO QPM Blood Clot Prevention/Tx 02/12/24
atorvastatin 80 mg tablet 80 mg PO QPM High Cholesterol 02/12/24
metoprolol succinate 25 mg tablet,extended release 24 hr 25 mg PO QPM Blood Pressure 02/12/24
pregabalin 100 mg capsule 100 mg PO TID 09/08/24
therapeutic multivitamin 1 tab PO QPM 09/08/24
[2024-09-09 13:22] LABS: Erythrocyte Sed Rate 4 mm/hour (0-20)
--- NOTE | 2024-09-09 15:13 | PTCARENOTE ---
Pt is off the floor at this time to MRI.
[2024-09-09 15:17] VITALS: BP 115/65
--- NOTE | 2024-09-09 16:49 | W.PN.HOSP.TC ---
Today's Communication/Plan
-
Another dose of Solu-Medrol ordered as patient felt better with this while waiting for MRI of the C-spine
Neurology following.
PT OT consult placed
Assessment / Plan
Assessment / Plan
59-year-old male presented with left-sided weakness
MRI with and with out- There are multiple T2 and FLAIR white matter hyperintensities, with appearance highly suggestive of the given clinical diagnosis of multiple sclerosis. These appear stable on direct comparison to most recent MRI June 03,
2023.There is no focal area of abnormal enhancement with no findings to suggest active demyelination.
CTA- No acute intracranial abnormality. No acute intracranial hemorrhage or extra-axial collection. No mass effect.No [place] region aneurysm or stenosis.No cerebral artery aneurysm, significant plaque, stenosis, thrombus, or occlusion.As
far as visualized, orbital structures are within normal limits. Orbital fat is preserved. No intraconal or extraconal mass.
CVS: S1-S2 normal
Chest: CTA B/L
Abdomen: Soft, NT / Bowel sounds present
Extremities: No edema, normal pulses
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
# Weakness-possible MS exacerbation Solu-Medrol 1 g IV ordered last night
Patient states that he got Much better, no visual changes at present. He still has weakness of the left arm
MRI Brain with out active demyelination
CTA head with no acute changes
I will get an MRI of the cervical spine with and without contrast to rule out demyelination, but this does not explain his visual changes.
Ordered 1 dose of Solu-Medrol now while waiting for above.
Neurology consulted and following
Discussed with neurology. Outpatient ophthalmology evaluation okay
Patient is aware that he needs an outpatient ophthalmology evaluation.
He used to follow-up with Dr. Olivo who has now left the practice. Now follows up with Melanie mireles NP
# History of multiple sclerosis was on Ocrevus for 4 years and last MS exacerbation was 4 years ago. Continue baclofen, Lyrica, oxcarbazepine for symptom management
# Coronary disease-continue aspirin and statin and beta-blockers
# COPD-stable
# Hypertension-continue metoprolol
# Hyperlipidemia-continue statin
# GERD-PPI
# History of adenocarcinoma of colon with robotic sigmoid colectomy with intracorporeal anastomosis by Dr. Granados 10/01/23
# Smoker-cessation counseling
# DVT prophylaxis-Lovenox
# Full code
D/W RN
D/w Neuro
Anticipated Discharge: Within 24 hours
Subjective/Interval History
-
Date of Service: September 09, 2024
Objective Data
-
Labs:
Laboratory Results
09/09/24
06:49
WBC 5.5
Hgb 15.3
Hct 44.3
Plt Count 263
Sodium 136
Potassium 4.5
Chloride 105
Carbon Dioxide 22
BUN 12
Creatinine 0.5 L
Glucose 130 H
Calcium 9.0
Vital Signs:
Vital Signs
Temp Pulse Resp BP Pulse Ox
97.7 F 63 18 115/65 95
09/09/24 07:51 09/09/24 07:51 09/09/24 07:51 09/09/24 07:51 09/09/24 07:51
[2024-09-09] MEDS: SOLU-MEDROL 258 MG IV (18:15)
[2024-09-09] MEDS: LIPITOR 80 MG PO (18:17)
[2024-09-09] MEDS: LOVENOX 40 MG SC (18:17)
[2024-09-09] MEDS: THERAGRAN 1 TABLET PO (18:18)
[2024-09-09] MEDS: TOPROL XL 25 MG PO (18:18)
[2024-09-09] MEDS: LOW STRENGTH ASPIRIN 81 MG PO (18:18)
[2024-09-09 23:57] VITALS: BP 122/70
[2024-09-10 06:00] VITALS: BMI 27.0
[2024-09-10 07:04] VITALS: BP 134/73
[2024-09-10] MEDS: LIORESAL 20 MG PO (07:55)
[2024-09-10] MEDS: TRILEPTAL 600 MG PO (07:55)
[2024-09-10] MEDS: LYRICA 100 MG PO (07:56)
[2024-09-10 09:18] LABS: Blood Urea Nitrogen 17 mg/dl (9-20); Calcium 9.5 mg/dl (8.4-10.2); Carbon Dioxide 23 mmol/L (22-30); Chloride 102 mmol/L (98-107); Estimated Creatinine Clearance > 125 ml/min; Glucose 140 mg/dl (70-99); Potassium 4.8 mmol/L (3.5-5.1); Sodium 136 mmol/L (135-145); eGFR > 60.00
--- NOTE | 2024-09-10 11:12 | W.PN.HOSP.TC ---
Today's Communication/Plan
-
IV Solu-Medrol
Discharge
Assessment / Plan
Assessment / Plan
Gen-AAOx3, NAD
HEENT-NC, AT, anicteric, clear oral mm
Neck-supple
CV-reg, no M, +S1/S2
Lungs-clear B/L
Abd-soft, NT, ND
Ext-no edema
Musculoskeletal-no cyanosis, clubbing
Skin-warm and dry
Neuro-grossly non-focal
Psych-calm, cooperative
Weakness-possible MS exacerbation
Patient states that he got Much better, no visual changes at present. He still has weakness of the left arm
MRI Brain with out active demyelination
CTA head with no acute changes
Neurology feels no need for cervical spine MRI, order canceled.
Has had 2 doses of 1000 mg IV Solu-Medrol so far, getting third dose today as per neurology. Discharge on prednisone taper as per neurology. Neurology recommends primidone on discharge.
Neurology consulted and following
Discussed with neurology. Outpatient ophthalmology evaluation okay
Patient is aware that he needs an outpatient ophthalmology evaluation.
He used to follow-up with Dr. Olivo who has now left the practice. 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
History of multiple sclerosis was on Ocrevus for 4 years and last MS exacerbation was 4 years ago. Continue baclofen, Lyrica, oxcarbazepine for symptom management
Coronary disease-continue aspirin and statin and beta-blockers
COPD-stable
Essential Hypertension-continue metoprolol
Hyperlipidemia-continue statin
GERD-PPI
History of adenocarcinoma of colon with robotic sigmoid colectomy with intracorporeal anastomosis by Dr. Granados 10/01/23
Smoker-cessation counseling
DVT prophylaxis-Lovenox
Full code
Dispo -medically stable for discharge, cleared by neurology. Outpatient follow-up.
35-minute spent in discharge process.
Anticipated Discharge: Today
Subjective/Interval History
-
Date of Service: September 10, 2024
Patient seen and examined. Requesting discharge. No complaints.
Objective Data
-
Labs:
Laboratory Results
09/10/24
08:16
Sodium 136
Potassium 4.8
Chloride 102
Carbon Dioxide 23
BUN 17
Creatinine 0.6 L
Glucose 140 H
Calcium 9.5
Vital Signs:
Vital Signs
Temp Pulse Resp BP Pulse Ox
97.9 F 60 16 134/73 95
09/10/24 07:04 09/10/24 07:04 09/10/24 07:04 09/10/24 07:04 09/10/24 07:04
I&O
09/09/24 09/10/24 09/11/24
06:59 06:59 06:59
Intake Total 858 / 858
Balance 858 / 858
Review of Systems
-
History Source: Patient
All other systems: Reviewed and negative
--- NOTE | 2024-09-10 11:20 | W.DS.TRANS ---
DC Summary - [employer]
-
Discharge Instructions:
Discharge Diagnosis/Procedures Multiple sclerosis
Diet Regular
Activity With assistance,As tolerated
Driving Restrictions No driving
Bathing Restrictions None
Instructions:
Stand-Alone Forms:
Changes to Home Medications: No
Discharge Medications:
DC Medications w/original date entered in [employer]
baclofen 20 mg tablet 20 mg PO TID Muscle Spasms 12/03/22
ocrelizumab 30 mg/mL intravenous solution (Ocrevus) 600 mg IV [id number] MULTI SCLEROSIS 12/03/22
oxcarbazepine 600 mg tablet 600 mg PO TID Seizures 12/03/22
aspirin 81 mg chewable tablet 81 mg PO QPM Blood Clot Prevention/Tx 02/12/24
atorvastatin 80 mg tablet 80 mg PO QPM High Cholesterol 02/12/24
metoprolol succinate 25 mg tablet,extended release 24 hr 25 mg PO QPM Blood Pressure 02/12/24
pregabalin 100 mg capsule 100 mg PO TID 09/08/24
therapeutic multivitamin 1 tab PO QPM 09/08/24
prednisone 10 mg tablet 10 mg PO DIRECTED #26 tabs 09/10/24
primidone 50 mg tablet 50 mg PO HS #30 tabs 09/10/24
Home Medication Changes
Pending Results: No
[2024-09-10] MEDS: SOLU-MEDROL 258 MG IV (11:44)
--- NOTE | 2024-09-10 12:29 | W.PN.NEURO.1 ---
Today's Communication / Plan
-
.
Subjective/Objective
Subjective Data
Date of Service: September 10, 2024
Neurology follow-up note
Mr. Adame reports no recurrent diplopia. He is right leg paresthesias have nearly resolved. No reports of dysphagia, dyspnea or dysarthria.
The patient endorses worsening of his baseline hand tremor.
Brain MRI with and without gadolinium (09/09/2024) showed no acute demyelination or infarcts.
CTA head�no evidence of aneurysm, dissection or hemodynamically significant stenosis.
PMH: RRMS, colon CA, CAD, DLP, apical heart aneurysm
PSH: partial colectomy, appendectomy, PTCI,
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
FH: No family history of EGGS INSPECTOR demyelinating disease; FH of premature CAD
All: Ceftriaxone, azithromycin, penicillin,
ROS:Constitutional: Negative. Negative for chills, fever and unexpected weight change.
HENT: Negative for ear pain, hearing loss, tinnitus and trouble swallowing.
Eyes: Positive for transient diplopia
Respiratory: Negative for cough, choking and shortness of breath.
Cardiovascular: Negative for chest pain, palpitations and leg swelling.
Gastrointestinal: Negative for abdominal pain and vomiting.
Endocrine: Negative. Negative for cold intolerance.
Genitourinary: Negative for dysuria, flank pain and urgency.
Musculoskeletal: Negative for back pain, gait problem, neck pain and neck stiffness.
Skin: Negative for rash.
Allergic/Immunologic: Negative. Negative for immunocompromised state.
Neurological: Positive for left-sided weakness, right leg paresthesias.
Psychiatric/Behavioral: Negative for behavioral problems, confusion and hallucinations.
General: Well developed. In no acute distress.
Cardio: Regular rate and rhythm without murmur. Extremities are without cyanosis or edema.
Neuro:
Mental Status: Alert, oriented to person, place, and date. Normal attention and recall. Good fund of knowledge. Follows complex requests across the midline. Comprehension, naming, and repetition intact. Immediate and delayed recall 3/3.
Cranial Nerves: . Pupils are equally round and reactive to light. EOMs full. Visual lara full to confrontation. No ptosis. No nystagmus. V1-V3 intact to light touch and pinprick bilaterally, symmetric. Face symmetric. Normal hearing AU.
The palate elevated well. SCMs and traps 5/5. Tongue midline. No dysarthria.
Motor: Left ataxic hemiparesis
Reflexes: 3+ throughout the upper extremities and knees. 2/2 in AJs. Plantar responses flexor bilaterally.
Sensory: Normal pinprick, vibration and JPS.
Coordination: Bilateral postural and action hand tremor.
Gait: deferred
Assessment and Plan:
I. Recrudescence of pre-existing deficits.
II. RRMS
III. Cervical myelopathy
-Fall precautions
-Ophthalmology consult
-Provide extra dose of Lyrica 100 mg
-Continue baclofen 20 mg 3 times daily, oxcarbazepine 600 mg 3 times daily, pregabalin 100 mg 3 times daily
-Please follow-up TFTs, vitamin D
-Continue prednisone 60 mg daily for 2 days, 40 mg daily for 2 days, 20 mg daily for 2 days 10 mg daily for 2 days then stop.
-GI prophylaxis
-Consider starting primidone 50 mg nightly
-Outpatient neurology follow-up in 1-2 weeks.
I personally reviewed all radiology and labs along with past medical records pertinent to current medical problems. Total time spent in patient care is 60 minutes.
Thank you for allowing us to participate in the care of this patient. Please do not hesitate to contact us with any questions or concerns.
Objective Data
Vital Signs
Temp Pulse Resp BP Pulse Ox
36.6 C 60 16 134/73 95
09/10/24 07:04 09/10/24 07:04 09/10/24 07:04 09/10/24 07:04 09/10/24 07:04
Lab Results
09/09/24 06:49
09/10/24 08:16
Sodium 136 mmol/L (135-145) 09/10/24 08:16
Potassium 4.8 mmol/L (3.5-5.1) 09/10/24 08:16
BUN 17 mg/dl (9-20) 09/10/24 08:16
Glucose 140 mg/dl (70-99) H 09/10/24 08:16
Calcium 9.5 mg/dl (8.4-10.2) 09/10/24 08:16
Patient Allergies
amoxicillin Allergy (Verified 07/20/24 09:01)
Hives
azithromycin [From Zithromax] Allergy (Verified 07/20/24 09:01)
Hives
ceftriaxone sodium [From Rocephin] Allergy (Verified 07/20/24 09:01)
Hives
Penicillins Allergy (Verified 07/20/24 09:01)
Hives
--- NOTE | 2024-09-10 12:42 | PTCARENOTE ---
Addendum entered by Noemi Vazquez RN 09/10/24 13:19:
Patient given prescription for PT for home. Steroid completed. All medications ordered administered. Peripheral IV removed. Patient left via wheelchair with staff.
Original Note:
IV steroids infusing now. reviewed discharge instructions with patient. Patient verbalizes understanding of all instructions and denies questions.
--- NOTE | 2024-09-10 13:02 | CM ---
CM met with the patient at the bedside. He resides with his spouse in a two story home with one step to enter. The patient reports no DME/VN/SNF in the past. The patient confirmed his pharmacy of choice is the [facility]. [facility]
continues to be available to patient/family and is monitoring medical plan for needs at discharge.
Plan: Discharge to home when medically stable. No needs anticipated.
[2024-09-10] MEDS: MYSOLINE 50 MG PO (13:09)
[2024-09-10 13:18] VITALS: BP 124/70
== END 2024-09-10 13:22 | disposition home or self-care (01) | DRG 60 ==
LOC: 4 EAST ACU 20:36
PROVIDERS: Hospitalist; Physician Assistant; ADMITTING PHYSICIAN Internal Medicine; ATTENDING PHYSICIAN Hospitalist; CONSULT PHYSICIAN Psychiatry & Neurology Neurology; EMERGENCY PHYSICIAN Student in an Organized Health Care Education/Training Program; FAMILY PHYSICIAN Family Medicine
DX: G35 Multiple sclerosis (principal); I25.10 Atherosclerotic heart disease of native coronary artery without angina pectoris; I10 Essential (primary) hypertension; J44.9 Chronic obstructive pulmonary disease, unspecified; F17.200 Nicotine dependence, unspecified, uncomplicated; E78.5 Hyperlipidemia, unspecified; G95.89 Other specified diseases of spinal cord; K21.9 Gastro-esophageal reflux disease without esophagitis; H53.2 Diplopia; I25.2 Old myocardial infarction; Z88.0 Allergy status to penicillin; Z88.1 Allergy status to other antibiotic agents; Z79.82 Long term (current) use of aspirin; Z79.899 Other long term (current) drug therapy; Z85.038 Personal history of other malignant neoplasm of large intestine; Z90.49 Acquired absence of other specified parts of digestive tract
CPT/HCPCS: 70496; 70553; 80048; 80053; 81003; 81015; 85025; 85027; 85652; 86140; 96361; 96374; 99284; Q9967

== ENCOUNTER 2024-11-10 16:28 | Inpatient (IN) | payer BC, MEDICARE, SELFPAY ==
[2024-11-09 13:32] VITALS: BP 118/76
[2024-11-09 14:04] LABS: Hematocrit 45.6 % (39.0-52.0); Hemoglobin 15.9 g/dL (13.0-18.0); Mean Corp Hgb Conc. 34.9 g/dL (33.0-37.0); Red Cell Dist. Width 13.2 % (11.5-14.5); White Blood Cell Count 7.8 10^3/uL (4.8-10.8)
[2024-11-09 14:23] LABS: Blood Urea Nitrogen 13 mg/dl (9-20); Calcium 8.8 mg/dl (8.4-10.2); Carbon Dioxide 21 mmol/L (22-30); Chloride 104 mmol/L (98-107); Glucose 107 mg/dl (70-99); Sodium 134 mmol/L (135-145); eGFR > 60.00
[2024-11-09 14:34] LABS: Absolute Neutrophils -Man Diff 4.7 10^3/uL (1.4-6.5); Atypical Lymphocytes 3 %; Band Neutrophils 3 % (0-3); Eosinophils 1 % (0-6); Lymphocytes 16 % (20-51); Monocytes 19 % (2-9); Normal RBC Morphology No; Platelets Checked Yes; Segmented Neutrophils 58 % (42-75); Total Cells Counted 100; Vacuolated Segs 3+
[2024-11-09 15:20] VITALS: BP 115/77
--- NOTE | 2024-11-09 15:55 | ED.GENMED ---
History of Present Illness
General
Chief Complaint: Weakness
Source: patient
Exam Limitations: none
Time Seen by Provider: 11/09/24 15:19
Nursing documentation reviewed up to this point in time: agreed with
History of Present Illness
History of Present Illness:
59-year-old male presenting to the emergency department today with concerns of increased left-sided weakness to the left arm left leg left face since last night. His history of MS believe this is an MS flare. Has not had a flare since last year.
Also has had upper respiratory symptoms over the past few days as well mainly cough. He is also noted some wheezing. Denies specific chest pain. Denies nausea vomiting fevers.
Past History
Past History
ED Past Medical History: Asthma (COPD), CAD, GERD, HTN, [place], Other (Cardiomyopathy with preserved LVF, osteopenia, diverticulosis, Bronchiolitis, MS, Pneumonia) and Other (questionable distant history of Lyme disease)
ED Past Surgical History: Appendectomy and Bowel resection
Social History
Tobacco: Smoker
Alcohol: Occasional
Drug: None
Personal:
Living: with family
Employment: Employed
Family History
Family History: Early CAD
Review of Systems
Review of Systems
Allergies reviewed?: Yes
All Other Systems: ROS reviewed and negative except as documented in HPI and ROS
Phy Exam
Physical Exam
Physical Exam:
GENERAL: Alert , in no apparent distress
EYE: pupils equal and reactive
NECK: Supple, no significant adenopathy.
ENT: o/p clr, mmm.
CARDIAC: Regular rate and rhythm .
LUNGS: Clear breath sounds bilaterally, no acute respiratory distress, no wheezes/rales/rhonchi
ABDOMEN: Soft, without focal tenderness, no r/g, no cvat
NEUROLOGICAL: Alert and oriented, vague weakness against resistance to the left upper and left lower extremity. Normal cranial nerve examination normal sensation to palpation
SKIN: Warm and dry, skin intact.
MUSCULOSKELETAL: No edema, well perfused.
PSYCH: Normal and appropriate interaction.
Course
Orders/Labs/Results
Orders:
Orders
11/09/24 13:36
CR Chest - 2 Views Urgent
Comment:
Reason For Exam: cough
11/09/24 13:41
Basic Metabolic Panel Urgent
Complete Blood Count/With Diff Urgent
Manual Differential Urgent
11/09/24 15:44
CT Head W/o Iv Contrast Urgent
Comment:
Reason For Exam: left sided weakness, face/arm/leg
11/09/24 15:46
Pregabalin [Lyrica] 100 mg PO NOW STA
11/09/24 15:47
Dexamethasone [Decadron] 10 mg PO NOW STA
Ipratropium/Albuterol Sulfate [Duoneb] 3 ml INH R NOW ONE
11/09/24 15:59
Albuterol [ProAIR HFA INHALER] 6 puff INH R NOW STA
11/09/24 16:00
Baclofen [Lioresal] 20 mg PO NOW STA
11/09/24 16:01
Oxcarbazepine [Trileptal] 600 mg PO NOW STA
11/09/24 18:15
MR Brain W/o & With Contrast Routine
Comment:
Reason For Exam: MS exacerbation
Recent pill cam endoscopy?: No
11/09/24 18:30
MethylPREDNISolone PF [Solu-Medrol Pf] 250 mg IV Q6H
Abnormal Lab Results
11/09/24
13:41
Lymphocytes (Manual) 16 L %
(20-51)
Monocytes (Manual) 19 H %
(2-9)
Sodium 134 L mmol/L
(135-145)
Carbon Dioxide 21 L mmol/L
(22-30)
Creatinine 0.6 L mg/dL
(0.7-1.3)
Glucose 107 H mg/dl
(70-99)
11/09/24 13:41
11/09/24 13:41
Vital Signs
Initial and Last Documented VS:
Initial Vital Signs
Temp Pulse Resp BP Pulse Ox
99.4 F 96 18 118/76 99
11/09/24 13:32 11/09/24 13:32 11/09/24 13:32 11/09/24 13:32 11/09/24 13:32
Last Documented Vital Signs
Temp Pulse Resp BP Pulse Ox
99.4 F 85 21 115/77 100
11/09/24 13:32 11/09/24 15:20 11/09/24 15:20 11/09/24 15:20 11/09/24 15:20
MDM/Problems Addressed
MDM/Problems Addressed:
59-year-old male presenting to the emergency department with a few days of upper respiratory symptoms now left-sided weakness. Claims to have a history of MS and that he believes this is secondary to MS. Vital signs on arrival are normal patient
no obvious distress does have a hacking cough labs unremarkable chest x-ray without signs of pneumonia. Patient does have a slight wheeze concerning this was given steroid as well as breathing treatment. Patient does have just have objective
weakness on his physical exam the left arm and left leg. Case discussed with Neuro. neurology saw the patient they are concerned of potential MS flare and are recommending to be admitted for MRI with contrast determine if he needs to complete 3 to
5 days of steroids or not. Plan to admit stay patient stable throughout ER stay wheezing improving here on reassessment.
*Critical Care Note
Total Time (30-74mins, 75-104mins- exclusive of procedures): Not Applicable
ED Attending Note
-
Portions of this chart may have been created with voice recognition software.� Occasional wrong word or��sound alike� substitutions may have occurred due to the inherent limitations of voice recognition software.
Discharge Plan
Departure
Patient Disposition: Admit
Date of Disposition: 11/09/24
Time of Disposition: 18:31
Admit to: Telemetry
Admit to doctor: Igor
Presentation/result/management discussed w/ accepting MD/DO: Hospitalist
Patient with high blood pressure during this ER visit?: No
Condition: Good
Covid-19: Not Applicable
Discharge Problem:
Wheeze, Left-sided weakness
Prescriptions:
No Action
baclofen 20 mg tablet
20 mg PO TID
oxcarbazepine 600 mg tablet
600 mg PO TID
Ocrevus 30 mg/mL Solution
600 mg IV [id number]
aspirin 81 mg tablet,chewable
81 mg PO QPM
metoprolol succinate 25 mg tablet extended release 24 hr
25 mg PO QPM
atorvastatin 80 mg tablet
80 mg PO QPM
therapeutic multivitamin Tablet
1 tab PO QPM
pregabalin 100 mg Capsule
100 mg PO TID
prednisone 10 mg tablet
10 mg PO DIRECTED Qty: 26 0RF
Rx Instructions:
6 tabs daily x 2 days, 4 tabs daily x 2 days, 2 tabs daily x 2 days, 1 tab daily x 2 days.
primidone 50 mg tablet
50 mg PO HS Qty: 30 0RF
Referrals:
UNKNOWN - PT DOES,NOT KNOW [Unknown Provider] -
Interventions
Interventions:
*Risk Screen - Suicide Last Done: 11/09/24 13:32
*General Assessment Last Done: 11/09/24 13:32
*Neglect/Abuse Screening Last Done: 11/09/24 13:32
*ED COVID-19 Vaccine History Last Done: 11/09/24 13:32
ED- Cardiac Assessment Last Done: 11/09/24 15:18
ED- Neurological Assessment Last Done: 11/09/24 15:18
ED- Pulmonary Assessment Last Done: 11/09/24 15:18
Discharge Date and Time
Print Language: ROMANIAN
[2024-11-09] MEDS: DECADRON 10 MG PO (15:57)
[2024-11-09] MEDS: LYRICA 100 MG PO ×2 (15:57→22:45)
[2024-11-09] MEDS: ProAIR HFA INHALER 6 PUFF INH (16:19)
[2024-11-09] MEDS: LIORESAL 20 MG PO ×2 (16:19→22:45)
[2024-11-09] MEDS: TRILEPTAL 600 MG PO ×2 (16:19→22:45)
--- NOTE | 2024-11-09 18:09 | CON.NEURO ---
Neuro Assessment/Plan
Assessment
Multiple sclerosis with exacerbation vs pseudo exacerbation
Plan
will start solumedrol IV 250 mg q6 hrs
check brain MRI w w/o contrast to determine if she should complete 3-5 days of steroids.
Consultation
Order
Date of Consultation: 11/09/24
Requesting Provider: Royal Bryant
Reason for Consult: MS exacerbation
Subjective/Objective
Subjective Data
Date of Service: November 09, 2024
He is a 59 year old man, reports 35 year history of MS, on Ocrevus. he reports having MS exacerbations approx every 4-5 years. Presenting with left sided weakness since last night. Reports previously having left sided weakness similarly with prior
exacerbations. on a normal day, he is full strength.
Objective Data
Vital Signs
Temp Pulse Resp BP Pulse Ox
37.4 C 85 21 115/77 100
11/09/24 13:32 11/09/24 15:20 11/09/24 15:20 11/09/24 15:20 11/09/24 15:20
Lab Results
11/09/24 13:41
11/09/24 13:41
Sodium 134 mmol/L (135-145) L 11/09/24 13:41
Potassium mmol/L (3.5-5.1) 11/09/24 13:41
BUN 13 mg/dl (9-20) 11/09/24 13:41
Glucose 107 mg/dl (70-99) H 11/09/24 13:41
Calcium 8.8 mg/dl (8.4-10.2) 11/09/24 13:41
Patient Allergies
amoxicillin Allergy (Verified 11/09/24 13:34)
Hives
azithromycin [From Zithromax] Allergy (Verified 11/09/24 13:34)
Hives
ceftriaxone sodium [From Rocephin] Allergy (Verified 11/09/24 13:34)
Hives
Penicillins Allergy (Verified 11/09/24 13:34)
Hives
Physical Exam
-
AAOx3, speech clear, language intact
VFF, EOMI, face symmetric
RUE/LE full strength, LUE/LE 4/5
sensation intact to touch
Medications
-
Home Medications
�Medication �Instructions �Recorded
baclofen 20 mg tablet 20 mg PO TID Muscle Spasms 12/03/22
ocrelizumab 30 mg/mL intravenous 600 mg IV [id number] MULTI SCLEROSIS 12/03/22
solution (Ocrevus)
oxcarbazepine 600 mg tablet 600 mg PO TID Seizures 12/03/22
aspirin 81 mg chewable tablet 81 mg PO QPM Blood Clot 02/12/24
Prevention/Tx
atorvastatin 80 mg tablet 80 mg PO QPM High Cholesterol 02/12/24
metoprolol succinate 25 mg 25 mg PO QPM Blood Pressure 02/12/24
tablet,extended release 24 hr
pregabalin 100 mg capsule 100 mg PO TID 09/08/24
therapeutic multivitamin 1 tab PO QPM 09/08/24
prednisone 10 mg tablet 10 mg PO DIRECTED #26 tabs 09/10/24
primidone 50 mg tablet 50 mg PO HS #30 tabs 09/10/24
--- NOTE | 2024-11-09 18:16 | HPS.HSE ---
Family Physician
-
Family Physician: Joaquin Duong
Chief Complaint
-
weakness
History of Present Illness
Patient is a 59-year-old male with past medical history significant for multiple sclerosis, hyperlipidemia, hypertension, asthma and GERD who presented to [facility] ED for evaluation of increased left-sided weakness since last night and
chest tightness with fever this morning. Patient stated he went to see primary provider today who referred him to ED for MS flare. Patient denies any cough, shortness of breath, chest pain, nausea, vomiting, constipation, diarrhea or urinary
symptoms.
Medical History
Past Medical History
Past Medical History: Reports Other
Additional Past Medical History:
multiple sclerosis
CAD
hyperlipidemia
hypertension
asthma
GERD
Hx colon cancer
Past Surgical History: Reports Other
Additional Past Surgical History:
appendectomy
LAD PCI
colonoscopy
sigmoid resection
Social History
Tobacco: Former Smoker (quit six months ago, approximate 25 pack year history )
Alcohol: Occasional
Drug: None
Personal:
Living: With Family
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
Family History
Family History: Not pertinent
Allergies / Home Medications
Allergies reflects when Allergies were last updated in [facility].
Home Medications with original date entered in [employer]
Allergy/Medication List:
Allergies
Allergy/AdvReac Type Severity Reaction Status Date / Time
amoxicillin Allergy Hives Verified 11/09/24 13:34
azithromycin [From Zithromax] Allergy Hives Verified 11/09/24 13:34
ceftriaxone sodium Allergy Hives Verified 11/09/24 13:34
[From Rocephin]
Penicillins Allergy Hives Verified 11/09/24 13:34
Home Medications
baclofen 20 mg tablet 20 mg PO TID Muscle Spasms 12/03/22
ocrelizumab 30 mg/mL intravenous solution (Ocrevus) 600 mg IV [id number] MULTI SCLEROSIS 12/03/22
oxcarbazepine 600 mg tablet 600 mg PO TID Seizures 12/03/22
aspirin 81 mg chewable tablet 81 mg PO QPM Blood Clot Prevention/Tx 02/12/24
atorvastatin 80 mg tablet 80 mg PO QPM High Cholesterol 02/12/24
metoprolol succinate 25 mg tablet,extended release 24 hr 25 mg PO QPM Blood Pressure 02/12/24
pregabalin 100 mg capsule 100 mg PO TID 09/08/24
therapeutic multivitamin 1 tab PO QPM 09/08/24
cholecalciferol (vitamin D3) 50 mcg (2,000 unit) tablet (Vitamin D3) 50 mcg PO QPM 11/09/24
colestipol 1 gram tablet 1 g PO QPM 11/09/24
Review of Systems
-
History Source: Patient
Constitutional: Reports Fever
EENT: Reports No Symptoms
Respiratory: Reports Other (chest tightness )
Cardiac: Reports No Symptoms
Abdomen/GI: Reports No Symptoms
: Reports No Symptoms
Musculoskeletal: Reports No Symptoms
Skin: Reports No Symptoms
Neurological: Reports Weakness (left sided upper and lower extremity )
Endocrine: Reports No Symptoms
Hematologic/Lymphatic: Reports No Symptoms
Psych: Reports No Symptoms
Physical Exam
Vital Signs
Vital Signs
Temp Pulse Resp BP Pulse Ox
99.4 F 85 21 115/77 100
11/09/24 13:32 11/09/24 15:20 11/09/24 15:20 11/09/24 15:20 11/09/24 15:20
Physical Exam
General: Well Developed, Well Nourished, No Apparent Distress, Comfortable and Conversant
HEENT: NormoCephalic, Moist mucous membranes, Atraumatic, [place] Conjunctivae, Nose Appears Normal and Ears Appear Normal
Respiratory: Clear and Non Labored Respirations
Cardiac: S1/S2 and Regular Rhythm; No Murmur, Rub or Gallop
Breast: Deferred by me
GI: Soft, Non Tender, Non Distended and Normal Bowel Sounds; No Organomegaly
Rectal: Deferred by Provider
Genito-urinary: Deferred by me
Musculoskeletal: No Clubbing, No Cyanosis and No Edema
Skin: No Rash
Neuro: Awake, Alert, AO x 3, Cranial Nerves Intact and Other (slight weakness on left upper and lower extremity)
Psych: Calm and Intact Judgment/Insight
Laboratory Results
-
11/09/24 13:41
11/09/24 13:41
Laboratory Results
Total Bilirubin Cancelled 11/09/24 13:41
AST Cancelled 11/09/24 13:41
ALT Cancelled 11/09/24 13:41
Alkaline Phosphatase Cancelled 11/09/24 13:41
Data Reviewed
-
Diagnostic Radiology: Report Reviewed by me (CXR: No acute cardiopulmonary abnormality. Mild elevation of the left hemidiaphragm with left basilar atelectasis.)
CT Scan: Report Reviewed by me (Head: No acute intracranial abnormality noted.)
Lab Data: Labs Reviewed by me
Impression/Plan
-
IMPRESSION/PLAN:
#multiple sclerosis
Head CT: No acute intracranial abnormality noted.
- admit to med/surg
- MRI
- consult Neurology
- IV solumedrol
- continue baclofen, Ocrevus, and pregabalin
#CAD
- continue aspirin and atorvastatin
#hyperlipidemia
- continue atorvastatin and colestipol
#benign hypertension
- continue metoprolol
#asthma
- DuoNeb QID
#GERD
#Hx colon cancer
s/p sigmoid resection
Code status: Full code
DVT Prophylaxis: Lovenox sq
--- NOTE | 2024-11-09 18:59 | W.PN.UPDATE ---
Update Note
Progress Note Update
This is an addendum to the H&P written by Keshia Montgomery on 11/09/2024. Patient seen and examined independently with POLITICAL RESEARCHER.
59-year-old male past medical history of multiple sclerosis on ocrevus, CAD, HFpEF, COPD, hypertension, hyperlipidemia, GERD, adenocarcinoma of colon status post colectomy/intracorporeal anastomosis, presenting with left-sided weakness of the left
arm and left face since last night.
Also with upper respiratory symptoms over the past few days with cough. Some wheezing.
Chest x-ray shows no acute abnormality.
CT head shows no acute abnormality.
Presentation consistent with possible sclerosis flare versus pseudo flare secondary to upper respiratory infection. Check COVID and influenza. Start methylprednisolone to 50 mg every 6 hours. Check MRI brain with and without contrast. Neurology
following. Caro.
[2024-11-09 19:16] VITALS: BP 118/73
[2024-11-09] MEDS: SOLU-MEDROL PF 250 MG IV ×2 (19:16→23:35)
[2024-11-09 20:02] LABS: COVID-19 Antigen Negative (Negative)
[2024-11-09 21:30] VITALS: BP 119/67; BMI 27.5
[2024-11-09] MEDS: MELATONIN 5 MG PO (23:35)
[2024-11-09 23:50] VITALS: BP 122/73
[2024-11-10] MEDS: BENADRYL 25 MG PO (01:37)
[2024-11-10] MEDS: SOLU-MEDROL PF 250 MG IV ×4 (06:08→23:35)
[2024-11-10 07:31] VITALS: BP 137/74
[2024-11-10] MEDS: TRILEPTAL 600 MG PO ×3 (08:14→22:16)
[2024-11-10] MEDS: LIORESAL 20 MG PO ×3 (08:14→22:16)
[2024-11-10] MEDS: LYRICA 100 MG PO ×3 (08:15→22:16)
[2024-11-10 10:39] LABS: Hematocrit 42.2 % (39.0-52.0); Hemoglobin 15.1 g/dL (13.0-18.0); Mean Corp Hgb Conc. 35.8 g/dL (33.0-37.0); Mean Corpuscular Hgb 30.8 pg (27.0-31.0); Mean Corpuscular Volume 85.9 fL (80.0-94.0); Mean Platelet Volume 12.6 fL (7.4-10.4); Platelet Count 193 10^3/uL (130-400); Red Blood Cell Count 4.91 10^6/uL (4.70-6.10); Red Cell Dist. Width 12.9 % (11.5-14.5); White Blood Cell Count 4.9 10^3/uL (4.8-10.8)
[2024-11-10 11:14] LABS: Blood Urea Nitrogen 16 mg/dl (9-20); Calcium 8.6 mg/dl (8.4-10.2); Carbon Dioxide 21 mmol/L (22-30); Chloride 102 mmol/L (98-107); Estimated Creatinine Clearance > 125 ml/min; Glucose 246 mg/dl (70-99); Potassium 4.2 mmol/L (3.5-5.1); Sodium 133 mmol/L (135-145); eGFR > 60.00
--- NOTE | 2024-11-10 12:57 | W.PN.HOSP.TC ---
Today's Communication/Plan
-
Monitor vital signs see plan
Continue with IV steroids
MRI brain
Neurology following
Incentive spirometer
Assessment / Plan
Assessment / Plan
General: Well Developed, Well Nourished, No Apparent Distress, Comfortable and Conversant
HEENT: NormoCephalic, Moist mucous membranes, Atraumatic, [place] Conjunctivae, Nose Appears Normal and Ears Appear Normal
Respiratory: Clear and Non Labored Respirations
Cardiac: S1/S2 and Regular Rhythm; No Murmur, Rub or Gallop
GI: Soft, Non Tender, Non Distended and Normal Bowel Sounds
Musculoskeletal: No Edema
Neuro: Awake, Alert, AO x 3, Cranial Nerves Intact and Other (slight weakness on left upper and lower extremity)
Psych: Calm and Intact Judgment/Insight
multiple sclerosis
Suspect exacerbation vs pseudo exacerbation per neurology
Possible atelectasis
COVID, flu negative
Also suspect underlying viral etiology especially manage spouse had similar symptoms
Solu-Medrol per neurology
MRI brain
Neurology follow
- continue baclofen, Ocrevus, and pregabalin
Hyponatremia
Monitor
CAD
- continue aspirin and atorvastatin
hyperlipidemia
- continue atorvastatin and colestipol
benign hypertension
- continue metoprolol
asthma
- DuoNeb QID
GERD
Hx colon cancer
s/p sigmoid resection
Code status: Full code
DVT Prophylaxis: Lovenox sq
Anticipated Discharge: 24 - 48 hours
Subjective/Interval History
-
Date of Service: November 10, 2024
Denies nausea
Objective Data
-
Labs:
Laboratory Results
11/10/24
09:56
WBC 4.9
Hgb 15.1
Hct 42.2
Plt Count 193
Sodium 133 L
Potassium 4.2
Chloride 102
Carbon Dioxide 21 L
BUN 16
Creatinine 0.5 L
Glucose 246 H
Calcium 8.6
Vital Signs:
Vital Signs
Temp Pulse Resp BP Pulse Ox
97.6 F 60 18 137/74 93
11/10/24 07:31 11/10/24 07:31 11/10/24 07:31 11/10/24 07:31 11/10/24 07:31
I&O
11/09/24 11/10/24 11/11/24
06:59 06:59 06:59
Intake Total 237 / 237
Balance 237 / 237
[2024-11-10] MEDS: DUONEB 3 ML INH ×2 (13:45→20:58)
[2024-11-10 15:57] VITALS: BP 125/79
[2024-11-10] MEDS: LIPITOR 80 MG PO (17:45)
[2024-11-10] MEDS: TOPROL XL 25 MG PO (17:45)
[2024-11-10] MEDS: LOW STRENGTH ASPIRIN 81 MG PO (17:45)
[2024-11-10] MEDS: LOVENOX 40 MG SC (17:45)
[2024-11-10] MEDS: VITAMIN D3 (cholecalciferol) 50 MCG PO (17:45)
--- NOTE | 2024-11-10 18:26 | W.PN.NEURO.1 ---
Today's Communication / Plan
-
without new lesion, high dose steroids are not really indicated, however patient feels they are helping, and that he might need 3 days.
continue solumedrol IV 250 mg q6 hrs and re assess tomorrow
Neuro Assessment/Plan
Assessment
Brain MRI imgs rev'd, white matter lesions consistent with MS, no enhancing lesions
Multiple sclerosis with pseudo exacerbation, no new lesions
did not fail Ocrevus
Plan
without new lesion, high dose steroids are not really indicated, however patient feels they are helping, and that he might need 3 days.
continue solumedrol IV 250 mg q6 hrs and re assess tomorrow
Subjective/Objective
Subjective Data
Date of Service: November 10, 2024
left sided weakness substantially improved
Objective Data
Vital Signs
Temp Pulse Resp BP Pulse Ox
36.8 C 101 18 125/79 92
11/10/24 15:57 11/10/24 15:57 11/10/24 15:57 11/10/24 15:57 11/10/24 15:57
Lab Results
11/10/24 09:56
11/10/24 09:56
Sodium 133 mmol/L (135-145) L 11/10/24 09:56
Potassium 4.2 mmol/L (3.5-5.1) 11/10/24 09:56
BUN 16 mg/dl (9-20) 11/10/24 09:56
Glucose 246 mg/dl (70-99) H 11/10/24 09:56
Calcium 8.6 mg/dl (8.4-10.2) 11/10/24 09:56
Patient Allergies
amoxicillin Allergy (Verified 11/09/24 13:34)
Hives
azithromycin [From Zithromax] Allergy (Verified 11/09/24 13:34)
Hives
ceftriaxone sodium [From Rocephin] Allergy (Verified 11/09/24 13:34)
Hives
Penicillins Allergy (Verified 11/09/24 13:34)
Hives
Physical Exam
-
AAOx3, speech clear, language intact
VFF, EOMI, face symmetric
RUE/LE full strength, LUE/LE 5-/5
sensation intact to touch
[2024-11-10] MEDS: MUCINEX 1200 MG PO (20:21)
[2024-11-10 23:21] VITALS: BP 132/71
[2024-11-10] MEDS: MELATONIN 5 MG PO (23:36)
[2024-11-10] MEDS: TYLENOL 650 MG PO (23:36)
[2024-11-11] MEDS: TYLENOL 650 MG PO ×2 (03:42→23:22)
[2024-11-11] MEDS: PEPCID 20 MG PO (05:43)
[2024-11-11] MEDS: SOLU-MEDROL PF 250 MG IV ×4 (05:43→23:30)
[2024-11-11 07:38] VITALS: BP 132/77
[2024-11-11 08:18] LABS: % Basophils 0.1 % (0-2); % Immature Granulocytes 0.7 % (0-0.5); % Lymphocytes 4.7 % (20.5-51.1); % Neutrophils 89.5 % (42.2-75.2); Absolute Immature Granulocytes 0.1 10^3/uL (0-0.05); Absolute Lymphocytes 0.8 10^3/uL (1.2-3.4); Absolute Monocytes 0.9 10^3/uL (0.1-0.6); Absolute Neutrophils 15.9 10^3/uL (1.4-6.5); Hematocrit 40.8 % (39.0-52.0); Hemoglobin 14.4 g/dL (13.0-18.0); Mean Corp Hgb Conc. 35.3 g/dL (33.0-37.0); Mean Corpuscular Hgb 30.2 pg (27.0-31.0); Mean Corpuscular Volume 85.5 fL (80.0-94.0); Mean Platelet Volume 12.7 fL (7.4-10.4); Nucleated Red Blood Cells % 0 % (-); Platelet Count 237 10^3/uL (130-400); Red Blood Cell Count 4.77 10^6/uL (4.70-6.10); White Blood Cell Count 17.7 10^3/uL (4.8-10.8)
[2024-11-11] MEDS: MUCINEX 1200 MG PO ×2 (08:38→19:46)
[2024-11-11] MEDS: TRILEPTAL 600 MG PO ×3 (08:39→21:49)
[2024-11-11] MEDS: LYRICA 100 MG PO ×3 (08:39→19:47)
[2024-11-11] MEDS: LIORESAL 20 MG PO ×3 (08:40→21:49)
[2024-11-11 09:41] LABS: Blood Urea Nitrogen 21 mg/dl (9-20); Calcium 8.8 mg/dl (8.4-10.2); Carbon Dioxide 21 mmol/L (22-30); Chloride 103 mmol/L (98-107); Estimated Creatinine Clearance > 125 ml/min; Glucose 114 mg/dl (70-99); Sodium 134 mmol/L (135-145); eGFR > 60.00
--- NOTE | 2024-11-11 11:35 | W.PN.HOSP.TC ---
Addendum entered and electronically signed by Alli Echavarria MD 11/12/24 11:43:
Patient had URI with possibility of bronchitis
Do not suspect asthma exacerbation
Original Note:
Today's Communication/Plan
-
Monitor vital signs see plan
Continue with Solu-Medrol
Slowly improving
Monitor leukocytosis
Neurology following
Assessment / Plan
Assessment / Plan
General: Well Developed, Well Nourished, No Apparent Distress, Comfortable and Conversant
HEENT: NormoCephalic, Moist mucous membranes, Atraumatic, [place] Conjunctivae, Nose Appears Normal and Ears Appear Normal
Respiratory: Clear and Non Labored Respirations
Cardiac: S1/S2 and Regular Rhythm; No Murmur, Rub or Gallop
GI: Soft, Non Tender, Non Distended and Normal Bowel Sounds
Musculoskeletal: No Edema
Neuro: Awake, Alert, AO x 3, Cranial Nerves Intact and Other (slight weakness on left upper and lower extremity)
Psych: Calm and Intact Judgment/Insight
multiple sclerosis
Suspect exacerbation per neurology
Possible atelectasis
COVID, flu negative
Also suspect underlying viral etiology especially manage spouse had similar symptoms
Solu-Medrol per neurology
MRI brain without any new lesions, however does have old lesions
Neurology follow
- continue baclofen, Ocrevus, and pregabalin
Leukocytosis secondary to steroids
Hyponatremia
Monitor
CAD
- continue aspirin and atorvastatin
hyperlipidemia
- continue atorvastatin and colestipol
benign hypertension
- continue metoprolol
asthma
- DuoNeb QID
GERD
Hx colon cancer
s/p sigmoid resection
Code status: Full code
DVT Prophylaxis: Lovenox sq
Anticipated Discharge: Within 24 hours
Subjective/Interval History
-
Date of Service: November 11, 2024
Denies pain
Objective Data
-
Labs:
Laboratory Results
11/11/24
06:58
WBC 17.7 H
Hgb 14.4
Hct 40.8
Plt Count 237 D
Sodium 134 L
Potassium 4.0
Chloride 103
Carbon Dioxide 21 L
BUN 21 H
Creatinine 0.5 L
Glucose 114 H
Calcium 8.8
Vital Signs:
Vital Signs
Temp Pulse Resp BP Pulse Ox
97.8 F 69 20 132/77 96
11/11/24 07:38 11/11/24 07:38 11/11/24 07:38 11/11/24 07:38 11/11/24 07:38
I&O
11/10/24 11/11/24 11/12/24
06:59 06:59 06:59
Intake Total 237 / 237 1160 / 1160
Balance 237 / 237 1160 / 1160
[2024-11-11 15:52] VITALS: BP 126/70
[2024-11-11] MEDS: VITAMIN D3 (cholecalciferol) 50 MCG PO (17:33)
[2024-11-11] MEDS: LIPITOR 80 MG PO (17:34)
[2024-11-11] MEDS: LOW STRENGTH ASPIRIN 81 MG PO (17:34)
[2024-11-11] MEDS: LOVENOX 40 MG SC (17:34)
[2024-11-11] MEDS: TOPROL XL 25 MG PO (17:36)
[2024-11-11] MEDS: TESSALON PERLES 200 MG PO ×2 (19:47→23:23)
[2024-11-11] MEDS: MELATONIN 5 MG PO (23:22)
[2024-11-11 23:23] VITALS: BP 124/67
[2024-11-12] MEDS: SOLU-MEDROL PF 250 MG IV ×2 (05:38→11:31)
[2024-11-12] MEDS: TYLENOL 650 MG PO ×2 (05:46→10:53)
[2024-11-12] MEDS: TESSALON PERLES 200 MG PO ×2 (06:19→12:16)
[2024-11-12 06:28] LABS: % Basophils 0.1 % (0-2); % Eosinophils 0.1 % (0-6); % Immature Granulocytes 0.6 % (0-0.5); % Lymphocytes 6.1 % (20.5-51.1); % Monocytes 3.7 % (1.7-9.3); % Neutrophils 89.4 % (42.2-75.2); Absolute Immature Granulocytes 0.1 10^3/uL (0-0.05); Absolute Monocytes 0.6 10^3/uL (0.1-0.6); Absolute Neutrophils 14.6 10^3/uL (1.4-6.5); Hematocrit 41.2 % (39.0-52.0); Hemoglobin 14.6 g/dL (13.0-18.0); Mean Corp Hgb Conc. 35.4 g/dL (33.0-37.0); Mean Corpuscular Hgb 30.2 pg (27.0-31.0); Mean Corpuscular Volume 85.3 fL (80.0-94.0); Mean Platelet Volume 12.5 fL (7.4-10.4); Nucleated Red Blood Cells % 0 % (-); Platelet Count 238 10^3/uL (130-400); Red Blood Cell Count 4.83 10^6/uL (4.70-6.10); Red Cell Dist. Width 13.2 % (11.5-14.5); White Blood Cell Count 16.3 10^3/uL (4.8-10.8)
[2024-11-12 06:53] LABS: Blood Urea Nitrogen 20 mg/dl (9-20); Calcium 8.7 mg/dl (8.4-10.2); Carbon Dioxide 22 mmol/L (22-30); Chloride 103 mmol/L (98-107); Estimated Creatinine Clearance > 125 ml/min; Glucose 117 mg/dl (70-99); Potassium 4.4 mmol/L (3.5-5.1); Sodium 136 mmol/L (135-145); eGFR > 60.00
[2024-11-12 08:11] VITALS: BP 125/65
[2024-11-12] MEDS: LIORESAL 20 MG PO (08:50)
[2024-11-12] MEDS: LYRICA 100 MG PO (08:50)
[2024-11-12] MEDS: TRILEPTAL 600 MG PO (08:50)
[2024-11-12] MEDS: MUCINEX 1200 MG PO (08:50)
--- NOTE | 2024-11-12 11:14 | PN.CDI ---
CDI
- -
CDI:
Physician Documentation Request
Admit Date: 11/10/24 16:28
Dear Doctor Jericho,
Clinical Indicators:
Patient admitted with suspected MS exacerbation.
11/10 ED Report.'Patient does have a slight wheeze concerning this was given steroid as well as breathing treatment'
11/09 H & P update note, 'Also with upper respiratory symptoms over the past few days with cough. Some wheezing.'
11/11 PN, 'asthma- DuoNeb QID'
Based on the above, could you clarify, in your progress note, further specificity regarding the acuity of the asthma:
Asthma with acute exacerbation
Asthma without exacerbation
Other
Use of terms such as suspected, likely, concern for, or probable (associated with a specific diagnosis that is being evaluated, monitored, or treated as if it exists) are acceptable and can be coded in the inpatient setting, when documented at the
time of discharge.
Thank you,
Irais Duncan RN BSN
CDI Specialist
available via tiger text
Please use your independent medical judgment in providing your response.
--- NOTE | 2024-11-12 11:21 | CM ---
Reviewed the chart notes and spoke with the patient at the bedside. The patient resides with his spouse in a two story home with two steps to enter. The patient reports only DME is a shower grab bar. The patient reports no VN or SNF. The patient
confirmed his pharmacy of choice is [facility]. CM continues to be available to patient/family and is monitoring medical plan for needs at discharge.
Plan: Discharge to home when medically stable. No needs anticipated at this time.
--- NOTE | 2024-11-12 11:37 | W.PN.HOSP.TC ---
Today's Communication/Plan
-
Monitor vitals
See plan
dc on Po prednisone with taper per neurology recommendation
Discharge today
Time of discharge 37 minutes
Assessment / Plan
Assessment / Plan
General: Well Developed, Well Nourished, No Apparent Distress, Comfortable and Conversant
HEENT: NormoCephalic, Moist mucous membranes, Atraumatic, [place] Conjunctivae, Nose Appears Normal and Ears Appear Normal
Respiratory: Clear and Non Labored Respirations
Cardiac: S1/S2 and Regular Rhythm; No Murmur, Rub or Gallop
GI: Soft, Non Tender, Non Distended and Normal Bowel Sounds
Musculoskeletal: No Edema
Neuro: Awake, Alert, AO x 3, Cranial Nerves Intact and Other (slight weakness on left upper and lower extremity)
Psych: Calm and Intact Judgment/Insight
multiple sclerosis
Suspect exacerbation per neurology
Possible atelectasis
COVID, flu negative
Also suspect underlying viral etiology especially manage spouse had similar symptoms
Solu-Medrol per neurology; discussed with neurology, transition to prednisone with taper. Will add PPI for prophylaxis
MRI brain without any new lesions, however does have old lesions
Neurology follow
- continue baclofen, Ocrevus, and pregabalin
Leukocytosis secondary to steroids
Hyponatremia
Resolved
CAD
- continue aspirin and atorvastatin
hyperlipidemia
- continue atorvastatin and colestipol
benign hypertension
- continue metoprolol
asthma
- DuoNeb QID
GERD
Hx colon cancer
s/p sigmoid resection
Code status: Full code
DVT Prophylaxis: Lovenox sq
Anticipated Discharge: Today
Subjective/Interval History
-
Date of Service: November 12, 2024
Denies nausea
Objective Data
-
Labs:
Laboratory Results
11/12/24
06:15
WBC 16.3 H
Hgb 14.6
Hct 41.2
Plt Count 238
Sodium 136
Potassium 4.4
Chloride 103
Carbon Dioxide 22
BUN 20
Creatinine 0.5 L
Glucose 117 H
Calcium 8.7
Vital Signs:
Vital Signs
Temp Pulse Resp BP Pulse Ox
97.8 F 64 18 125/65 95
11/12/24 08:11 11/12/24 08:11 11/12/24 08:11 11/12/24 08:11 11/12/24 08:30
I&O
11/11/24 11/12/24 11/13/24
06:59 06:59 06:59
Intake Total 1160 / 1160 920 / 920
Balance 1160 / 1160 920 / 920
--- NOTE | 2024-11-12 11:50 | W.DCSUMMARY ---
Discharge Summary
Discharge Data
Date of Admission: 11/10/24
Date of Discharge: 11/12/24
-
Pending Results: No
Hospital Course
59-year-old male with past medical history of multiple sclerosis, CAD, hyperlipidemia, hypertension, asthma, GERD, colon cancer status post sigmoid resection came to the hospital with cough likely secondary to possible viral bronchitis. Patient
also appeared to have MS flareup and was seen by neurology on this hospitalization and was started on IV steroids. MRI was done which did not show any signs of new lesions however patient did had old MS lesions. Patient symptoms over time continue
to improve with IV steroids which later was transitioned to p.o. prednisone with taper. He also did had mild bronchitis which continue to improve over time. Once his symptoms continue to improve, he was then discharged home with instructions to
follow-up with all his physicians outpatient.
Discharge Plan
-
Patient Disposition: Home (Routine Discharge)
Discharge Diagnosis/Procedures: Suspected URI with possibility of acute bronchitis
Suspected multiple sclerosis flareup
Diet: As tolerated
Activity: As tolerated
Driving Restrictions: As prior to admission
Bathing Restrictions: None
Referrals:
Albert Ta MD [Active] -
Joaquin Duong DO [Family Provider] - in less than 1 week
Prescriptions:
New
guaifenesin 600 mg Tablet Extended Release 12hr
1,200 mg PO Q12 7 Days Qty: 28 0RF
benzonatate 100 mg Capsule
200 mg PO TIDPRN PRN (Reason: cough) Qty: 15 0RF
pantoprazole 40 mg Tablet,Delayed Release (Dr/Ec)
40 mg PO DAILY Qty: 30 0RF
prednisone 20 mg tablet
20 mg PO DIRECTED Qty: 32 0RF
Rx Instructions:
80mgx3 days, 60mg x3 days, 40mg x3 days, 20mg x3 days, and then 10mg (1/2 tab) x3 days
albuterol sulfate 90 mcg/actuation HFA aerosol inhaler
2 puff inhalation Q6H PRN (Reason: shortness of breath or wheezing) Qty: 6.7 0RF
Continued
baclofen 20 mg tablet
20 mg PO TID
oxcarbazepine 600 mg tablet
600 mg PO TID
Ocrevus 30 mg/mL Solution
600 mg IV [id number]
aspirin 81 mg tablet,chewable
81 mg PO QPM
metoprolol succinate 25 mg tablet extended release 24 hr
25 mg PO QPM
atorvastatin 80 mg tablet
80 mg PO QPM
therapeutic multivitamin Tablet
1 tab PO QPM
pregabalin 100 mg Capsule
100 mg PO TID
colestipol 1 gram Tablet
1 g PO QPM
cholecalciferol (vitamin D3) [Vitamin D3] 50 mcg (2,000 unit) Tablet
50 mcg PO QPM
Discharge Orders:
Discharge Patient (As Directed); Ordered 11/12/24
Ordered By: Alli Echavarria
Discharge Date and Time
Discharge Date/Time: 11/12/24 12:45
Print Language: SAMI
[2024-11-12] MEDS: PROTONIX 40 MG PO (12:15)
== END 2024-11-12 12:45 | disposition home or self-care (01) | DRG 59 ==
LOC: 4 EAST ACU 16:28
PROVIDERS: Nurse Practitioner Family; ADMITTING PHYSICIAN Hospitalist; ATTENDING PHYSICIAN Internal Medicine; CONSULT PHYSICIAN Psychiatry & Neurology Clinical Neurophysiology; EMERGENCY PHYSICIAN Student in an Organized Health Care Education/Training Program; FAMILY PHYSICIAN Family Medicine
DX: G35 Multiple sclerosis (principal); E87.1 Hypo-osmolality and hyponatremia; J44.0 Chronic obstructive pulmonary disease with (acute) lower respiratory infection; I25.10 Atherosclerotic heart disease of native coronary artery without angina pectoris; E78.5 Hyperlipidemia, unspecified; I10 Essential (primary) hypertension; K21.9 Gastro-esophageal reflux disease without esophagitis; J20.8 Acute bronchitis due to other specified organisms; Z85.038 Personal history of other malignant neoplasm of large intestine; Z79.899 Other long term (current) drug therapy
CPT/HCPCS: 70450; 70553; 71046; 80048; 85025; 85027; 87502; 87811; 94640; 99285; 99406; A9575

== ENCOUNTER 2025-01-04 08:15 | Outpatient (RCR) | payer BC, MEDICARE, SELFPAY ==
[2025-01-04] VITALS (12 sets, daily range): BP systolic 99–122; BP diastolic 55–73
[2025-01-04 08:51] LABS: % Basophils 1.2 % (0-2); % Immature Granulocytes 0.3 % (0-0.5); % Lymphocytes 32.3 % (20.5-51.1); % Monocytes 12.5 % (1.7-9.3); % Neutrophils 47.7 % (42.2-75.2); Absolute Basophils 0.1 10^3/uL (0-0.2); Absolute Eosinophils 0.4 10^3/uL (0-0.7); Absolute Lymphocytes 2.1 10^3/uL (1.2-3.4); Absolute Monocytes 0.8 10^3/uL (0.1-0.6); Absolute Neutrophils 3.2 10^3/uL (1.4-6.5); Hematocrit 44.2 % (39.0-52.0); Hemoglobin 15.3 g/dL (13.0-18.0); Mean Corp Hgb Conc. 34.6 g/dL (33.0-37.0); Mean Corpuscular Hgb 30.2 pg (27.0-31.0); Mean Corpuscular Volume 87.2 fL (80.0-94.0); Mean Platelet Volume 11.2 fL (7.4-10.4); Platelet Count 273 10^3/uL (130-400); Red Blood Cell Count 5.07 10^6/uL (4.70-6.10); Red Cell Dist. Width 12.8 % (11.5-14.5); White Blood Cell Count 6.6 10^3/uL (4.8-10.8)
[2025-01-04] MEDS: TYLENOL 650 MG PO (09:07)
[2025-01-04] MEDS: SOLU-MEDROL PF 51.6 MG IV (09:13)
[2025-01-04] MEDS: NSS 500 IV (09:14)
[2025-01-04] MEDS: BENADRYL 51 MG IV (09:41)
[2025-01-04] MEDS: OCREVUS 520 MG IV (10:10)
== END 2025-01-05 07:41 | disposition home or self-care (01) ==
LOC: OID 08:15
PROVIDERS: ATTENDING PHYSICIAN Psychiatry & Neurology Neurology; FAMILY PHYSICIAN Family Medicine
DX: G35 Multiple sclerosis (principal)
CPT/HCPCS: 36415; 85025; 96361; 96367; 96413; 96415; J2350

== ENCOUNTER 2025-05-16 06:34 | Day surgery (SDC) | payer BC, MEDICARE, SELFPAY | END 2025-05-16 12:18 | disposition home or self-care (01) | LOC: GI 06:34 | PROVIDERS: ATTENDING PHYSICIAN Internal Medicine Gastroenterology | DX: Z12.11 Encounter for screening for malignant neoplasm of colon (principal); K57.30 Diverticulosis of large intestine without perforation or abscess without bleeding; K64.9 Unspecified hemorrhoids; R12 Heartburn; R10.84 Generalized abdominal pain; K31.89 Other diseases of stomach and duodenum; K63.5 Polyp of colon; Z98.0 Intestinal bypass and anastomosis status; Z85.038 Personal history of other malignant neoplasm of large intestine | CPT/HCPCS: 45380; 43239; 88305; 88342 ==

== ENCOUNTER 2025-07-07 08:16 | Outpatient (RCR) | payer BC, MEDICARE, SELFPAY ==
[2025-07-07] VITALS (10 sets, daily range): BP systolic 101–115; BP diastolic 22–77; BMI 28.3
[2025-07-07 08:36] LABS: Hematocrit 43.8 % (39.0-52.0); Hemoglobin 15.2 g/dL (13.0-18.0); Mean Corp Hgb Conc. 34.7 g/dL (33.0-37.0); Mean Corpuscular Volume 87.1 fL (80.0-94.0); Platelet Count 262 10^3/uL (130-400); Red Cell Dist. Width 12.8 % (11.5-14.5)
[2025-07-07] MEDS: TYLENOL 650 MG PO (09:06)
[2025-07-07] MEDS: SOLU-MEDROL PF 51.6 MG IV (09:06)
[2025-07-07] MEDS: NSS 500 IV (09:06)
[2025-07-07] MEDS: BENADRYL 51 MG IV (09:38)
[2025-07-07] MEDS: OCREVUS 520 MG IV (10:11)
== END 2025-07-08 10:20 | disposition home or self-care (01) ==
LOC: OID 08:16
PROVIDERS: ATTENDING PHYSICIAN Psychiatry & Neurology Neurology; FAMILY PHYSICIAN Family Medicine
DX: G35.D Multiple sclerosis, unspecified (principal); G35 Multiple sclerosis (principal)
CPT/HCPCS: 36415; 85025; 96361; 96367; 96413; 96415; J2350